=== PATIENT | male | born 1930 | race Caucasian/White ===

== ENCOUNTER 2016-04-15 20:21 | Inpatient (IN) | payer OTHER ==
[~2016-04-15] VITALS: Ht 182.9 cm; Wt 93.8 kg
[~2016-04-15 20:21] MED LIST: ALPH50CA2 PO; ASPI81TA28 PO; FEXO1TAB49 PO; FINA5TAB PO; FLUT0.15 NAE; MULT-190 PO; MULTCAP36 PO; NVLGI7030 SC; PRAV20TA PO; PROB1TAB16 PO; RESV1CAP PO; SULF800T23 PO; TURM1CAP2 PO; UBIQ1CAP8 PO
[2016-04-15] MEDS ORDERED: NVLGI7030 SC (21:10)
[2016-04-15 21:38] LABS: BASO % 0.1 %; BASO ABS # 0.01 K/uL (0-0.2); COMPLETE YES; HEMATOCRIT 41.9 % (42-52); IG% 0.4 %; LYMPH % 20.8 %; LYMPH ABS # 1.64 K/uL (1.2-3.4); MEAN CELL VOLUME 91.1 fL (80-100); MEAN CORPUSCULAR HEMOGLOBIN 32.6 pg (25-34); MEAN CORPUSCULAR HGB CONC 35.8 g/dl (32-36); MEAN PLATELET VOLUME 10.9 fL (7.4-10.4); MONO % 7.7 %; PLATELET COUNT 169 K/uL (130-400)
[2016-04-15] MEDS ORDERED: CEFTRIAXONE SOD INJ 1 GM ADDVIAL IV STA (21:42)
--- NOTE | 2016-04-15 21:49 | EMERGENCY ROOM VISIT NOTE ---
History Report prepared by Hemalatha: Colton Delgado Under the Supervision of: Dr. Pepe Maradiaga D.O. First contact with patient: 20:40 Chief Complaint: WOUND INFECTION Stated Complaint: RT FOOT/2ND TOE INFECTION,DIABETIC History of Present Illness The patient is an 85 year old male who presents to the Emergency Room with complaints of persistent infection in the second toe of his right foot that started last week. Per patient's family, the physical therapist had cut off a piece of skin from the second toe. The toe was starting to bleed and so four days ago the physical therapist looked at it again and noted that it was healing well. However, the next day the toe was red and swollen. Two days ago, the patient presented to his PCP who also said the toe was healing nicely. There the toe was wrapped with silver nitrate and bandaged. Yesterday, the toe was bleeding again and started to cause him discomfort. He notes that the redness from the toe started spreading into his foot today, but not up his leg. The patient has a history of these infections and has seen [facility] in the past. He denies fever, nausea, vomiting, or drainage. Source of History: patient Onset: last week Position: toe(s) (2nd right toe) Timing: other (persistent) Associated Symptoms: No fevers, No nausea, No vomiting Note: Other associated symptoms: bleeding, red, swollen right second toe, toe discomfort, redness into foot Denies: drainage Review of Systems See HPI for pertinent positives & negatives. A total of 10 systems reviewed and were otherwise negative. Past Medical & Surgical Medical Problems: (1) Acute cholecystitis (2) Cellulitis and abscess of foot (3) Coronary artery bypass grafting (4) Diabetes mellitus (5) Diabetic peripheral neuropathy associated with type 2 diabetes mellitus (6) Foot deformity (7) Gastroesophageal reflux disease (8) History of diabetic ulcer of foot (9) Loss of sensation (10) Pre-ulcerative corn or callous Family History Cancer Social History Smoking Status: Never Smoker Drug Use: none Marital Status: Housing Status: lives with family Occupation Status: retired Current/Historical Medications Scheduled Alpha-Lipoic Acid (Thioctic Ac (Alpha Lipoic Acid), 1 TAB PO DAILY Aspirin (Aspirin Ec), 81 MG PO DAILY Finasteride (Proscar), 5 MG PO DAILY Insulin Aspart Protamine & Asp (Novolog Mix 70/30), 45 UNITS SC QAM Insulin Aspart Protamine & Asp (Novolog Mix 70/30), 40 UNITS SC QPM Multiple Vitamins W/ Minerals (Preservision/Lutein), 1 CAP PO BID Pravastatin (Pravachol ), 20 MG PO DAILY Probiotic Product (Probiotic), 1 TAB PO DAILY Resveratrol (Resveratrol), 1 TAB PO DAILY Turmeric (Curcuma Longa) (Turmeric), 1 TAB PO DAILY Ubiquinol (Ubiquinol), 1 TAB PO QAM Scheduled PRN Fexofenadine Hcl (Maria Fernanda Allergy), 180 MG PO DAILY PRN for ALLERGY SYMPTOMS Fluticasone Propionate (Nasal) (Flonase Allergy Relief), 1 SPRAY FRANCIE DIRECTED PRN for Nasal Congestion Insulin Aspart 70/30 (Novolog Mix 70/30), 0 SC for PRN Allergies Coded Allergies: Doxycycline (Verified Adverse Reaction, Mild, GI SYMPTOMS, 04/15/16) Bacitracin (Unverified Adverse Reaction, Unknown, RASH, 04/15/16) Neomycin (Unverified Adverse Reaction, Unknown, RASH, 04/15/16) Polymyxin B (Unverified Adverse Reaction, Unknown, RASH, 04/15/16) Tamsulosin (Verified Adverse Reaction, Unknown, hypotension/syncope, ) Physical Exam Vital Signs Date Time Temp Pulse Resp B/P Pulse Ox O2 Delivery O2 Flow Rate FiO2 04/15/16 22:24 73 18 141/70 96 Room Air 04/15/16 20:24 36.5 84 18 153/82 97 Room Air Physical Exam GENERAL: Patient is awake alert in no acute distress patient is resting comfortably and showing no signs of anxiety EYES: The conjunctivae are clear. The pupils are round and reactive. EARS, NOSE, MOUTH AND THROAT: The nose is without any evidence of any deformity. Mucous membranes are moist tongue is midline NECK: The neck is nontender and supple. RESPIRATORY: Normal respiratory effort is noted there is no evidence of wheezing rhonchi or rales CARDIOVASCULAR: Regular rate and rhythm noted there no murmurs rubs or gallops normal S1 normal S2 GASTROINTESTINAL: The abdomen is soft. Bowel sounds are present in all quadrants. Abdomen is nontender MUSCULOSKELETAL/EXTREMITIES: There is no evidence of gross deformity full range of motion is noted in the hips and shoulders SKIN: There is no obvious evidence of any rash. There are no petechiae, pallor or cyanosis noted. Right second toe was erythematous, on the pad there is an area of swelling, there is no active bleeding or discharge noted. Small amount of erythema on dorsum of right foot. NEUROLOGIC: Patient is awake alert and oriented x3 strength is symmetric patellar reflexes are 2+ bilaterally Medical Decision & Procedures ER Provider Diagnostic Interpretation: X-ray results as stated below per interpretation by me and the radiologist. RIGHT FOOT MIN 3 VIEWS ROUTINE CLINICAL HISTORY: RIGHT FOOT PROBLEMS, 2ND TOE INFECTION Right COMPARISON STUDY: None. FINDINGS: Soft tissue swelling within the right second toe. There is a 4 mm lucency along the medial aspect of the distal second toe which may represent a skin ulceration. There appears a focal cortical plate and screws seen within the distal fibula. To be subtle loss of the normal cortex at the tip of the distal phalanx of the second toe. This suggests osteomyelitis. No fracture or dislocation within the right foot. Degenerative changes which are most pronounced at the first MTP joint. Vascular calcifications are noted. The Lisfranc joint is intact. IMPRESSION: Soft tissue swelling and a small skin ulceration at the distal right second toe. Deep to the skin ulceration there are subtle loss of the normal cortex at the tip of the distal phalanx of the second toe consistent with osteomyelitis. Electronically signed by: Hakan Turpin M.D. 04/15/2016 10:21 PM Dictated Date/Time: 04/15/2016 10:17 PM Laboratory Results 04/15/16 21:30 Red Blood Count 4.60, Mean Corpuscular Volume 91.1, Mean Corpuscular Hemoglobin 32.6, Mean Corpuscular Hemoglobin Concent 35.8, Mean Platelet Volume 10.9, Neutrophils (%) (Auto) 69.0, Lymphocytes (%) (Auto) 20.8, Monocytes (%) (Auto) 7.7, Eosinophils (%) (Auto) 2.0, Basophils (%) (Auto) 0.1, Neutrophils # (Auto) 5.45, Lymphocytes # (Auto) 1.64, Monocytes # (Auto) 0.61, Eosinophils # (Auto) 0.16, Basophils # (Auto) 0.01 04/15/16 21:30 Test 04/15/16 21:30 White Blood Count 7.90 K/uL (4.8-10.8) Red Blood Count 4.60 M/uL (4.7-6.1) Hemoglobin 15.0 g/dL (14.0-18.0) Hematocrit 41.9 % (42-52) Mean Corpuscular Volume 91.1 fL (80-100) Mean Corpuscular Hemoglobin 32.6 pg (25-34) Mean Corpuscular Hemoglobin Concent 35.8 g/dl (32-36) Platelet Count 169 K/uL (130-400) Mean Platelet Volume 10.9 fL (7.4-10.4) Neutrophils (%) (Auto) 69.0 % Lymphocytes (%) (Auto) 20.8 % Monocytes (%) (Auto) 7.7 % Eosinophils (%) (Auto) 2.0 % Basophils (%) (Auto) 0.1 % Neutrophils # (Auto) 5.45 K/uL (1.4-6.5) Lymphocytes # (Auto) 1.64 K/uL (1.2-3.4) Monocytes # (Auto) 0.61 K/uL (0.11-0.59) Eosinophils # (Auto) 0.16 K/uL (0-0.5) Basophils # (Auto) 0.01 K/uL (0-0.2) RDW Standard Deviation 42.1 fL (36.4-46.3) RDW Coefficient of Variation 12.6 % (11.5-14.5) Immature Granulocyte % (Auto) 0.4 % Immature Granulocyte # (Auto) 0.03 K/uL (0.00-0.02) Erythrocyte Sedimentation Rate 14 mm/hr (0-14) Anion Gap 12.0 mmol/L (3-11) Est Creatinine Clear Calc Drug Dose 65.0 ml/min Estimated GFR () 81.2 Estimated GFR (Non- 70.0 BUN/Creatinine Ratio 25.0 (10-20) Calcium Level 9.1 mg/dl (8.5-10.1) Total Bilirubin 0.6 mg/dl (0.2-1) Direct Bilirubin < 0.1 mg/dl (0-0.2) Aspartate Amino Transf (AST/SGOT) 20 U/L (15-37) Alanine Aminotransferase (ALT/SGPT) 22 U/L (12-78) Alkaline Phosphatase 99 U/L (45-117) C-Reactive Protein 0.71 mg/dl (0-0.29) Total Protein 7.1 gm/dl (6.4-8.2) Albumin 3.6 gm/dl (3.4-5.0) Laboratory results per my review. Medications Administered Medications (Trade) Dose Ordered Sig/Mildred Route Start Time Stop Time Status Last Admin Dose Admin Ceftriaxone Sodium (Rocephin Inj) 1 gm NOW STAT IV 04/15/16 21:42 04/15/16 21:43 DC 04/15/16 21:58 1 GM ED Course 2105: The patient was evaluated in room C2. A complete history and physical examination were performed. 2141: Ordered Rocephin Inj 1 gm IV. 2241: At this time, I discussed the patient's case with Dr. Gabe RONDON and he agreed to accept the patient for further evaluation. Medical Decision Prior records reviewed and summarized as above. Triage Nursing notes reviewed. Additional history obtained from the patient's significant other. The patient's history was concerning for swelling and redness of the skin. Differential diagnosis: Etiologies such as cellulitis, abscess, MRSA infection, DVT, necrotizing fasciitis, dermatitis, drug eruption, as well as others were entertained.. The patient is an 85-year-old diabetic male who presented to the emergency department for an evaluation of right foot swelling and redness. The patient has a history of infection in the foot in the past. He also had osteomyelitis in the past. The patient had a recent procedure done to his right foot. He had a small callus removed. The patient started noticing erythema to the foot. He also noticed swelling of the right second toe. The patient is not currently taking antibiotics. I discussed the patient's laboratory and radiographic studies with him. He was treated with IV antibiotics emergency department. The patient was not found have a significant elevation in his white blood cell count. His inflammatory markers were not significantly elevated. He was found to have signs of possible osteomyelitis on plain x-ray. Given the patient's past medical history I discussed his case with the on-call [facility] hospitalist group. They've agreed to evaluate the patient in the emergency department for further management and disposition. Consults Time Called: [id number] Consulting Physician: Dr. Gabe RONDON Returned Call: [phone] At this time, I discussed the patient's case with Dr. Bernal and he agreed to accept the patient for further evaluation. Impression Primary Impression: Cellulitis of right toe Scribe Attestation The scribe's documentation has been prepared under my direction and personally reviewed by me in its entirety. I confirm that the note above accurately reflects all work, treatment, procedures, and medical decision making performed by me. Departure Information Dispostion Being Evaluated By Hospitalist Referrals Cedrick Niño M.D. (PCP)
[2016-04-15 22:12] LABS: ALT/SGPT 22 U/L (12-78); BLOOD UREA NITROGEN 25 mg/dl (7-18); C-REACTIVE PROTEIN 0.71 mg/dl (0-0.29); CALCIUM 9.1 mg/dl (8.5-10.1); CARBON DIOXIDE 23 mmol/L (21-32); CHLORIDE 105 mmol/L (98-107); CREATININE 0.98 mg/dl (0.60-1.40); GLUCOSE 167 mg/dl (70-99); POTASSIUM 4.1 mmol/L (3.5-5.1); SODIUM 140 mmol/L (136-145)
[2016-04-15 22:15] LABS: ALKALINE PHOSPHATASE 99 U/L (45-117); AST/SGOT 20 U/L (15-37)
--- NOTE | 2016-04-15 22:22 | DIAGNOSTIC IMAGING REPORT ---
RIGHT FOOT MIN 3 VIEWS ROUTINE CLINICAL HISTORY: RIGHT FOOT PROBLEMS, 2ND TOE INFECTION Right COMPARISON STUDY: None. FINDINGS: Soft tissue swelling within the right second toe. There is a 4 mm lucency along the medial aspect of the distal second toe which may represent a skin ulceration. There appears a focal cortical plate and screws seen within the distal fibula. To be subtle loss of the normal cortex at the tip of the distal phalanx of the second toe. This suggests osteomyelitis. No fracture or dislocation within the right foot. Degenerative changes which are most pronounced at the first MTP joint. Vascular calcifications are noted. The Lisfranc joint is intact. IMPRESSION: Soft tissue swelling and a small skin ulceration at the distal right second toe. Deep to the skin ulceration there are subtle loss of the normal cortex at the tip of the distal phalanx of the second toe consistent with osteomyelitis. Electronically signed by: Hakan Turpin M.D. 04/15/2016 10:21 PM Dictated Date/Time: 04/15/2016 10:17 PM
--- NOTE | 2016-04-15 22:59 | History and Physical ---
History & Physical Date & Time of Service: Apr 15, 2016 at 22:46 Chief Complaint: Rt Foot/2ND Toe Infection,Diabetic Primary Care Physician: Cedrick Niño M.D. History of Present Illness Source: patient 85 y/o M Hx CAD, moderate , IDDM w/neuropathy and previous complicated LE ulcer - was being treated as outpt for a 2nd R toe ulcer however has worsened following recent minor debridement. Current presentation is concerning for underlying osteomyelitis. Pt had previously presented similarly and quickly worsened requiring several weeks of outpt IV antibiotics. He denies significant pain, denies fever/rigors. Most recent wound cultures revealed MRSA. Past Medical/Surgical History Medical Problems: (1) Coronary artery bypass grafting Status: Resolved (2) Diabetes mellitus Status: Chronic (3) Gastroesophageal reflux disease Status: Chronic 4) Complicated cellulitis and osteomyelitis - required several weeks outpt IV antibiotics 5) Moderate - recent diagnosis Family History Cancer Social History Smoking Status: Never Smoker Drug Use: none Marital Status: Housing status: lives with family Occupational Status: retired Immunizations History of Influenza Vaccine: Yes History of Tetanus Vaccine?: UTD History of Pneumococcal: Yes History of Hepatitis B Vaccine: No Multi-Drug Resistant Organisms History of MDRO: Yes Type of MDRO: MRSA Allergies Coded Allergies: Doxycycline (Verified Adverse Reaction, Mild, GI SYMPTOMS, 04/15/16) Bacitracin (Unverified Adverse Reaction, Unknown, RASH, 04/15/16) Neomycin (Unverified Adverse Reaction, Unknown, RASH, 04/15/16) Polymyxin B (Unverified Adverse Reaction, Unknown, RASH, 04/15/16) Tamsulosin (Verified Adverse Reaction, Unknown, hypotension/syncope, ) Home Medications Scheduled Alpha-Lipoic Acid (Thioctic Ac (Alpha Lipoic Acid), 1 TAB PO DAILY Aspirin (Aspirin Ec), 81 MG PO DAILY Finasteride (Proscar), 5 MG PO DAILY Insulin Aspart Protamine & Asp (Novolog Mix 70/30), 45 UNITS SC QAM Insulin Aspart Protamine & Asp (Novolog Mix 70/30), 40 UNITS SC QPM Multiple Vitamins W/ Minerals (Preservision/Lutein), 1 CAP PO BID Pravastatin (Pravachol ), 20 MG PO DAILY Probiotic Product (Probiotic), 1 TAB PO DAILY Resveratrol (Resveratrol), 1 TAB PO DAILY Turmeric (Curcuma Longa) (Turmeric), 1 TAB PO DAILY Ubiquinol (Ubiquinol), 1 TAB PO QAM Scheduled PRN Fexofenadine Hcl (Maria Fernanda Allergy), 180 MG PO DAILY PRN for ALLERGY SYMPTOMS Fluticasone Propionate (Nasal) (Flonase Allergy Relief), 1 SPRAY FRANCIE DIRECTED PRN for Nasal Congestion Insulin Aspart 70/30 (Novolog Mix 70/30), 0 SC for PRN Review of Systems Constitutional: No chills, No fever, No sweats, No weakness, No weight loss Eyes: No worsening of vision ENT: No hearing loss, No nasal symptoms, No unusual epistaxis Respiratory: No cough, No sputum, No wheezing Cardiovascular: No PND, No chest pain, No orthopnea Abdomen: No nausea, No pain, No vomiting Musculoskeletal: No joint pain, No muscle pain Genitourinary - Male: No dysuria, No hematuria, No urinary frequency Neurologic: No memory loss, No paralysis Psychiatric: No depression symptoms Endocrine: No fatigue Hematologic / Lymphatic: No abnormal bleeding/bruising Integumentary: + problem reported (Worsening ulcer/cellulitis RLE - ulcer at 2nd toe), No rash Allergic / Immunologic: No environmental allergies, No pet sensitivities, No seasonal allergies Physical Exam Vital Signs Date Time Temp Pulse Resp B/P Pulse Ox O2 Delivery O2 Flow Rate FiO2 04/15/16 22:24 73 18 141/70 96 Room Air 04/15/16 20:24 36.5 84 18 153/82 97 Room Air General Appearance: WD/WN, no apparent distress Head: normocephalic, atraumatic Eyes: normal inspection, PERRL, EOMI ENT: normal ENT inspection, pharynx normal Neck: supple, no JVD Respiratory/Chest: chest non-tender, lungs clear, normal breath sounds, no respiratory distress, no accessory muscle use Cardiovascular: regular rate, rhythm, no JVD Abdomen/GI: normal bowel sounds, non tender, soft Back: normal inspection, no CVA tenderness Extremities/Musculoskelatal: normal inspection, no calf tenderness, normal capillary refill, + inflammation, + pertinent finding (Ulcer and cellulitis 2nd R toe - not stageable - ) Neurologic/Psych: bundle clerk II-XII nml as tested, no motor/sensory deficits, alert, oriented x 3 Skin: normal color, warm/dry, no rash, + pertinent finding (Ulcer and cellulitis 2nd R toe - not stageable - ) Diagnostics Laboratory Results Results Past 24 Hours Test 04/15/16 21:30 Range/Units White Blood Count 7.90 4.8-10.8 K/uL Red Blood Count 4.60 4.7-6.1 M/uL Hemoglobin 15.0 14.0-18.0 g/dL Hematocrit 41.9 42-52 % Mean Corpuscular Volume 91.1 80-100 fL Mean Corpuscular Hemoglobin 32.6 25-34 pg Mean Corpuscular Hemoglobin Concent 35.8 32-36 g/dl Platelet Count 169 130-400 K/uL Mean Platelet Volume 10.9 7.4-10.4 fL Neutrophils (%) (Auto) 69.0 % Lymphocytes (%) (Auto) 20.8 % Monocytes (%) (Auto) 7.7 % Eosinophils (%) (Auto) 2.0 % Basophils (%) (Auto) 0.1 % Neutrophils # (Auto) 5.45 1.4-6.5 K/uL Lymphocytes # (Auto) 1.64 1.2-3.4 K/uL Monocytes # (Auto) 0.61 0.11-0.59 K/uL Eosinophils # (Auto) 0.16 0-0.5 K/uL Basophils # (Auto) 0.01 0-0.2 K/uL RDW Standard Deviation 42.1 36.4-46.3 fL RDW Coefficient of Variation 12.6 11.5-14.5 % Immature Granulocyte % (Auto) 0.4 % Immature Granulocyte # (Auto) 0.03 0.00-0.02 K/uL Erythrocyte Sedimentation Rate 14 0-14 mm/hr Sodium Level 140 136-145 mmol/L Potassium Level 4.1 3.5-5.1 mmol/L Chloride Level 105 98-107 mmol/L Carbon Dioxide Level 23 21-32 mmol/L Anion Gap 12.0 3-11 mmol/L Blood Urea Nitrogen 25 7-18 mg/dl Creatinine 0.98 0.60-1.40 mg/dl Est Creatinine Clear Calc Drug Dose 65.0 ml/min Estimated GFR () 81.2 Estimated GFR (Non- 70.0 BUN/Creatinine Ratio 25.0 10-20 Random Glucose 167 70-99 mg/dl Calcium Level 9.1 8.5-10.1 mg/dl Total Bilirubin 0.6 0.2-1 mg/dl Direct Bilirubin < 0.1 0-0.2 mg/dl Aspartate Amino Transf (AST/SGOT) 20 15-37 U/L Alanine Aminotransferase (ALT/SGPT) 22 12-78 U/L Alkaline Phosphatase 99 45-117 U/L C-Reactive Protein 0.71 0-0.29 mg/dl Total Protein 7.1 6.4-8.2 gm/dl Albumin 3.6 3.4-5.0 gm/dl Diagnostic Radiology XR foot: Soft tissue swelling and a small skin ulceration at the distal right second toe. Deep to the skin ulceration there are subtle loss of the normal cortex at the tip of the distal phalanx of the second toe consistent with osteomyelitis. Impression Assessment and Plan 85 y/o M Hx CAD, DM w/neuropathy and previous complicated LE ulcer - was being treated as outpt for a 2nd R toe ulcer however has worsened following recent minor debridement. Current presentation is concerning for underlying osteomyelitis. Pt had previously presented similarly and quickly worsened requiring several weeks of outpt IV antibiotics. 1) LE cellulitis - ulcer R 2nd toe - pt admitted for IV abx and surgical eval - may need prolonged tx if there is clinical proof of osteo and he continues to worsen. We will consult surgery. Cultures form a few months prior revealed MRSA - pt will be placed on Ceftriaxone and Vanc pending additional culture results. 2) DM -sliding scale in hospital 3) CAD - no evidence of CAD - cont 4) Moderate - f/u as outpt Total time for this consult including chart review , discussion with ER attending, review of labs, imaging, med rec - 35 min Heparin prophylaxis, full code Level of Care Med/Surg Resuscitation Status FULL RESUSCITATION VTE Prophylaxis Given or contraindicated: Unfractionated heparin SQ
[2016-04-15] MEDS ORDERED: MAGNESIUM HYDROXIDE SUSP 30 ML UDC PO PRN (23:00)
[2016-04-15] MEDS ORDERED: ONDANSETRON INJ 2 MG/ML 2 ML VIAL IV PRN (23:00)
[2016-04-15] MEDS ORDERED: POLYETHYLENE (MIRALAX) 17 GM PACK PO PRN (23:00)
[2016-04-15] MEDS ORDERED: ALUMINUM/MAGNESIUM/SIMETH (MAALOX MAX) 30 ML UDC PO PRN (23:00)
[2016-04-15] MEDS ORDERED: ACETAMINOPHEN 325 MG TAB PO PRN (23:00)
[2016-04-16 00:01] VITALS: BP 151/73; PULSE 71; TEMP 36.6; O2SAT 98
[2016-04-16] MEDS ORDERED: GLUCAGON FOR INJ 1 MG VIAL SQ PRN (01:15)
[2016-04-16] MEDS ORDERED: DEXTROSE 50% 50 ML SYR IV PRN (01:15)
[2016-04-16] MEDS ORDERED: GLUCOSE 40% GEL 15 GM TUBE PO PRN (01:15)
[2016-04-16] MEDS ORDERED: GLUCOSE 10 TABS/TUBE PO PRN (01:15)
[2016-04-16 04:31] VITALS: BP 151/73; PULSE 71; TEMP 36.6; BMI 28.0
[2016-04-16 06:04] LABS: PROTHROMBIN TIME (PATIENT) 10.7 SECONDS (9.0-12.0)
[2016-04-16 06:59] VITALS: BP 126/73; PULSE 65; TEMP 36.6; O2SAT 98
[2016-04-16] MEDS: HEPARIN SOD 5000 UNIT/0.5 ML CARP SQ SCH ×2 (08:00→15:57)
[2016-04-16] MEDS: LACTOBACILLUS ACIDOPHILUS (FLORANEX) TAB PO SCH (09:07)
[2016-04-16] MEDS: PRAVASTATIN SOD 20 MG TAB PO SCH (09:07)
[2016-04-16] MEDS: FINASTERIDE 5 MG TAB PO SCH (09:07)
[2016-04-16] MEDS: ASPIRIN 81 MG ECTAB PO SCH (09:07)
[2016-04-16] MEDS: INSULIN ASPART 100 UNITS/ML 3 ML PEN SC SCH ×4 (09:12→22:07)
--- NOTE | 2016-04-16 11:10 | Progress Note ---
Subjective Date of Service: Apr 16, 2016. Subjective Pt evaluation today including: conversation w/ patient, chart review, lab review Pt states he has a small amount of pain in his R 2nd toe, but improved from prior. States that pain was never really that substantial however. Pt denies fever, SOB, chest pain, abd pain, n/v/c/d, other LE pain or swelling. He denies any recent hx of redness to the rest of his foot. ROS as noted above, otherwise neg. Problem List Medical Problems: (1) Cellulitis of right toe Status: Acute (2) Dehydration Status: Acute (3) Nausea & vomiting Status: Acute (4) Near syncope Status: Acute (5) UTI (urinary tract infection) Status: Acute Objective Vital Signs Date Time Temp Pulse Resp B/P Pulse Ox O2 Delivery O2 Flow Rate FiO2 04/16/16 08:00 Room Air 04/16/16 06:59 36.6 65 18 126/73 98 Room Air 04/16/16 04:31 36.6 71 20 151/73 Room Air 04/16/16 00:01 36.6 71 20 151/73 98 Room Air 04/15/16 23:33 72 18 136/67 96 04/15/16 22:24 73 18 141/70 96 Room Air 04/15/16 20:24 36.5 84 18 153/82 97 Room Air Physical Exam General Appearance: WD/WN, no apparent distress Respiratory/Chest: normal breath sounds, no respiratory distress Cardiovascular: regular rate, rhythm, no edema Abdomen: non tender, soft Extremities: non-tender, no pedal edema Neurologic/Psychiatric: alert, oriented x 3 Skin: warm/dry, + pertinent finding (R 2nd toe is bandaged with the dressing clean and dry, no redness to the rest of R foot) Laboratory Results Last 24 Hours Test 04/15/16 21:30 04/16/16 05:13 04/16/16 07:37 White Blood Count 7.90 K/uL Red Blood Count 4.60 M/uL Hemoglobin 15.0 g/dL Hematocrit 41.9 % Mean Corpuscular Volume 91.1 fL Mean Corpuscular Hemoglobin 32.6 pg Mean Corpuscular Hemoglobin Concent 35.8 g/dl Platelet Count 169 K/uL Mean Platelet Volume 10.9 fL Neutrophils (%) (Auto) 69.0 % Lymphocytes (%) (Auto) 20.8 % Monocytes (%) (Auto) 7.7 % Eosinophils (%) (Auto) 2.0 % Basophils (%) (Auto) 0.1 % Neutrophils # (Auto) 5.45 K/uL Lymphocytes # (Auto) 1.64 K/uL Monocytes # (Auto) 0.61 K/uL Eosinophils # (Auto) 0.16 K/uL Basophils # (Auto) 0.01 K/uL RDW Standard Deviation 42.1 fL RDW Coefficient of Variation 12.6 % Immature Granulocyte % (Auto) 0.4 % Immature Granulocyte # (Auto) 0.03 K/uL Erythrocyte Sedimentation Rate 14 mm/hr Sodium Level 140 mmol/L Potassium Level 4.1 mmol/L Chloride Level 105 mmol/L Carbon Dioxide Level 23 mmol/L Anion Gap 12.0 mmol/L Blood Urea Nitrogen 25 mg/dl Creatinine 0.98 mg/dl Est Creatinine Clear Calc Drug Dose 65.0 ml/min Estimated GFR () 81.2 Estimated GFR (Non- 70.0 BUN/Creatinine Ratio 25.0 Random Glucose 167 mg/dl Calcium Level 9.1 mg/dl Total Bilirubin 0.6 mg/dl Direct Bilirubin < 0.1 mg/dl Aspartate Amino Transf (AST/SGOT) 20 U/L Alanine Aminotransferase (ALT/SGPT) 22 U/L Alkaline Phosphatase 99 U/L C-Reactive Protein 0.71 mg/dl Total Protein 7.1 gm/dl Albumin 3.6 gm/dl Prothrombin Time 10.7 SECONDS Prothromb Time International Ratio 1.0 Bedside Glucose 217 mg/dl Assessment and Plan 85 y/o M Hx CAD, DM w/neuropathy and previous complicated LE ulcer - was being treated as outpt for a 2nd R toe ulcer however has worsened following recent minor debridement. Current presentation is concerning for underlying osteomyelitis. Pt had previously presented similarly and quickly worsened requiring several weeks of outpt IV antibiotics. 1) LE cellulitis - ulcer R 2nd toe - pt admitted for IV abx and surgical eval - XR suggestive of osteo Cultures from a few months prior revealed MRSA - pt will be placed on Ceftriaxone and Vanc pending additional culture results. 2) DM -sliding scale in hospital 3) CAD - no evidence of CAD - cont 4) Moderate - f/u as outpt
[2016-04-16 14:55] VITALS: BP 137/72; PULSE 62; TEMP 36.2; O2SAT 96
[2016-04-16 16:00] VITALS: O2SAT 96
[2016-04-16] MEDS ORDERED: CEFTRIAXONE SOD INJ 1 GM in DEXTROSE 5% ADD-VANTAGE 50ML 50 ML IV SCH (22:00)
[2016-04-17 00:14] VITALS: BP 136/68; PULSE 87; TEMP 36.5; O2SAT 97
[2016-04-17 07:29] VITALS: BP 158/94; PULSE 74; TEMP 36.7; O2SAT 96
[2016-04-17] MEDS ORDERED: INSULIN GLARGINE SOLOSTAR 100 UNITS/ML 3 ML PEN SC SCH ×2 (08:00→20:00)
[2016-04-17] MEDS: ASPIRIN 81 MG ECTAB PO SCH (08:43)
[2016-04-17] MEDS: PRAVASTATIN SOD 20 MG TAB PO SCH (08:44)
[2016-04-17] MEDS: FINASTERIDE 5 MG TAB PO SCH (08:44)
[2016-04-17] MEDS: LACTOBACILLUS ACIDOPHILUS (FLORANEX) TAB PO SCH (08:44)
[2016-04-17] MEDS: FEXOFENADINE HCL 180 MG TAB PO PRN (08:45)
[2016-04-17] MEDS: INSULIN ASPART 100 UNITS/ML 3 ML PEN SC SCH ×4 (08:49→19:41)
[2016-04-17] MEDS: HEPARIN SOD 5000 UNIT/0.5 ML CARP SQ SCH ×4 (08:50→23:48)
[2016-04-17 09:45] LABS: ESTIMATED AVERAGE GLUCOSE 189 mg/dl; HA1C FLAG Normal (Normal)
[2016-04-17] MEDS ORDERED: VANCOMYCIN INJ 1,000 MG in SODIUM CHLORIDE 0.9% 250ML 250 ML IV SCH (09:45)
[2016-04-17] MEDS ORDERED: INSULIN GLARGINE SOLOSTAR 100 UNITS/ML 3 ML PEN SC ONE (09:45)
[2016-04-17] MEDS ORDERED: VANCOMYCIN CONSULT ACTIVE PRN (10:15)
[2016-04-17 10:53] LABS: CREATININE 1.2 mg/dl (0.60-1.40)
--- NOTE | 2016-04-17 11:03 | Progress Note ---
Subjective Subjective Date of Service: Apr 17, 2016. Pt evaluation today including: conversation w/ patient, physical exam, chart review, review of studies, review of inpatient medication list Problem List Medical Problems: (1) Cellulitis of right toe Status: Acute (2) Dehydration Status: Acute (3) Nausea & vomiting Status: Acute (4) Near syncope Status: Acute (5) UTI (urinary tract infection) Status: Acute Review of Systems Constitutional: No fever, No weight loss Respiratory: No cough, No shortness of breath Abdomen: No diarrhea, No pain Neurologic: No memory loss, No numbness/tingling Psychiatric: No depression symptoms Endo: No fatigue Physical Exam Vital Signs Vital Signs Past 24 Hours: Date Time Temp Pulse Resp B/P Pulse Ox O2 Delivery O2 Flow Rate FiO2 04/17/16 08:00 Room Air 04/17/16 07:29 36.7 74 20 158/94 96 BiPAP 04/17/16 00:14 36.5 87 18 136/68 97 Room Air 04/17/16 00:00 Room Air 04/16/16 20:00 Room Air 04/16/16 16:00 96 Room Air 04/16/16 14:55 36.2 62 16 137/72 96 Room Air Physical Exam: General Appearance: WD/WN, no apparent distress Eyes: bilateral eyes normal inspection ENT: hearing grossly normal, pharynx normal Neck: supple, no JVD Respiratory/Chest: chest non-tender, normal breath sounds Cardiovascular: regular rate, rhythm, no gallop Abdomen: normal bowel sounds, no organomegaly Extremities: normal range of motion, + pertinent finding (right 2th toe is wrapped in dressing) Neurologic/Psychiatric: alert, normal mood/affect Skin: normal color Medications Medications: Current Inpatient Medications Medications (Trade) Dose Ordered Sig/Mildred Route Start Time Stop Time Status Last Admin Dose Admin Heparin Sodium (Porcine) (Heparin Sq 5000 Unit/0.5ml) 5,000 unit Q8H SQ 04/16/16 08:00 05/16/16 07:59 04/17/16 08:50 5,000 UNIT Acetaminophen (Tylenol Tab) 650 mg Q4H PRN PO 04/15/16 23:00 05/15/16 22:59 Al Hydrox/Mg Hydrox/Simethicone (Maalox Max Susp) 15 ml Q4H PRN PO 04/15/16 23:00 05/15/16 22:59 Magnesium Hydroxide (Milk Of Magnesia Susp) 30 ml Q6H PRN PO 04/15/16 23:00 05/15/16 22:59 Polyethylene (Miralax Powder Packet) 17 gm DAILY PRN PO 04/15/16 23:00 05/15/16 22:59 Ondansetron HCl (Zofran Inj) 4 mg Q6H PRN IV 04/15/16 23:00 05/15/16 22:59 Aspirin (Ecotrin Tab) 81 mg DAILY PO 04/16/16 08:00 05/16/16 08:59 04/17/16 08:43 81 MG Fexofenadine HCl (Maria Fernanda Tab) 180 mg DAILY PRN PO 04/15/16 23:00 05/15/16 22:59 04/17/16 08:45 180 MG Finasteride (Proscar Tab) 5 mg DAILY PO 04/16/16 08:00 05/16/16 08:59 04/17/16 08:44 5 MG Pravastatin Sodium (Pravachol Tab) 20 mg DAILY PO 04/16/16 08:00 05/16/16 08:59 04/17/16 08:44 20 MG Lactobacillus Acidophilus (Floranex Tab) 4 tab DAILY PO 04/16/16 08:00 05/16/16 08:59 04/17/16 08:44 4 TAB Insulin Aspart (novoLOG ASPART) SLIDING SCALE G... ACHS SC 04/16/16 06:30 05/16/16 06:59 04/17/16 08:49 4 UNITS Glucose (Glucose 40% Gel) 15-30 GRAMS 15 GRAMS... UD PRN PO 04/16/16 01:15 05/16/16 01:14 Glucose (Glucose Chew Tab) 4-8 Tablets 4 Tabl... UD PRN PO 04/16/16 01:15 05/16/16 01:14 Dextrose (Dextrose 50% 50ML Syringe) 25-50ML OF 50% DW IV FOR... UD PRN IV 04/16/16 01:15 05/16/16 01:14 Glucagon 1 mg 1 mg UD PRN SQ 04/16/16 01:15 05/16/16 01:14 Vancomycin HCl/ Sodium Chloride (Vancomycin Inj/ Nss 250ml) 270 ml @ 125 mls/hr Q12 IV 04/17/16 09:45 05/17/16 09:44 UNV Insulin Glargine (Lantus Solostar Pen) 24 unit BID SC 04/17/16 20:00 05/17/16 19:59 Vancomycin HCl (Consult) 1 ea UD PRN N/A 04/17/16 10:15 05/17/16 10:14 Laboratory Data Labs: Last 24 Hours Test 04/16/16 11:44 04/17/16 08:21 04/17/16 08:27 Bedside Glucose 250 mg/dl Estimated Average Glucose 189 mg/dl Hemoglobin A1c 8.2 % Creatinine 1.20 mg/dl Est Creatinine Clear Calc Drug Dose 53.5 ml/min Estimated GFR () 63.5 Estimated GFR (Non- 54.8 Assessment and Plan 85 y/o M Hx CAD, DM w/neuropathy and previous complicated LE ulcer - was being treated as outpt for a 2nd R toe ulcer however has worsened following recent minor debridement. Current presentation is concerning for underlying osteomyelitis. Pt had previously presented similarly and quickly worsened requiring several weeks of outpt IV antibiotics. 1) LE cellulitis/osteomyelitis - ulcer R 2nd toe - pt admitted for IV abx and surgical eval - XR suggestive of osteo, check MRI toe, may need intermodal customer service IV abx Cultures from a few months prior revealed MRSA - continue on IV Vanco pending additional culture results. 2) DM2: start sq lantus 24 units BID, sliding scale, a1c 8.2 3) CAD - no evidence of CAD - cont 4) Moderate - f/u as outpt FULL code
--- NOTE | 2016-04-17 11:10 | Pharmacy Progress Note ---
Pharmacy Antibiotic Consult Date of Service: Apr 17, 2016. Pharmacy Dosing Scope Pharmacy is consulted to initiate Vancomycin IV dosing therapy, order appropriate labs and adjust drug dose/frequency. Subjective The patient is a 85 year old male admitted on Apr 15, 2016 at 23:03. 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 Was not on antibiotics immediately USED [facility]. * Wound healing complicated by uncontrolled DM. A1c today is 8.2% (EAG = 189 mg /dl). * Culture from R toe ulcer positive for S.aureus. Sensitivities to follow. Vancomycin: * Load with Vancomycin 2350mg IV x 1 (25mg/kg) * Half life estimated to be 12-14 hours. * Start maintenance dose of Vancomycin 1400mg (15mg/kg) IV [id number]. * Obtain trough level prior to the 3rd or 4th maintenance dose. * Goal trough 15-20 mcg/ml Pharmacy will continue to follow and will adjust dose/frequency as necessary. Thank you
[2016-04-17] MEDS ORDERED: VANCOMYCIN INJ 2,350 MG in SODIUM CHLORIDE 0.9% 500ML 500 ML IV ONE (11:15)
--- NOTE | 2016-04-17 13:19 | DIAGNOSTIC IMAGING REPORT ---
MRI RIGHT FOREFOOT COMBO CLINICAL HISTORY: Osteomyelitis. COMPARISON STUDY: MRI of the right forefoot dated 09/29/2009. Radiographs of the right foot dated 04/15/2016. TECHNIQUE: MRI of the right forefoot is performed using various T1 and T2-weighted sequences in the axial, sagittal, and coronal planes. Contrast-enhanced images were acquired from the IV administration of 9 cc of Gadavist. The Examination is degraded by motion artifact. FINDINGS: There is cortical erosion identified at the tip of the second distal phalanx with mild overlying soft tissue edema and patchy abnormal enhancement. No significant marrow edema is identified and the appearance of the second distal phalanx is unchanged from the 2010 examination. There is no convincing evidence of osteomyelitis. The overlying edema suggests cellulitis. No organized fluid collection is seen to indicate abscess. Arthritic change is present at the first metatarsophalangeal joint. There is fatty atrophy of the regional musculature. IMPRESSION: 1. Erosion at the tip of the second distal phalanx is unchanged from the 2010 MRI. There is no associated marrow edema and no definitive MRI evidence of acute osteomyelitis. 2. Findings suggest mild cellulitis involving the second toe. Clinical correlation will be required. Electronically signed by: Carlos Alba M.D. 04/17/2016 1:17 PM Dictated Date/Time: 04/17/2016 1:05 PM
[2016-04-17 14:17] VITALS: Ht 182.9 cm; Wt 93.8 kg
[2016-04-17 15:12] VITALS: BP 131/70; PULSE 57; TEMP 36.5; O2SAT 97
[2016-04-17] MEDS: INSULIN GLARGINE SOLOSTAR 100 UNITS/ML 3 ML PEN SC SCH (19:40)
[2016-04-18 00:23] VITALS: BP 136/81; PULSE 65; TEMP 36.5; O2SAT 95
[2016-04-18] MEDS ORDERED: VANCOMYCIN INJ 1,400 MG in SODIUM CHLORIDE 0.9% 500ML 500 ML IV SCH (01:00)
[2016-04-18 08:00] VITALS: O2SAT 95
[2016-04-18 08:01] VITALS: BP 145/75; PULSE 70; TEMP 36.9; O2SAT 99
[2016-04-18 08:28] LABS: CREATININE 0.99 mg/dl (0.60-1.40)
[2016-04-18] MEDS: PRAVASTATIN SOD 20 MG TAB PO SCH (08:52)
[2016-04-18] MEDS: FINASTERIDE 5 MG TAB PO SCH (08:52)
[2016-04-18] MEDS: ASPIRIN 81 MG ECTAB PO SCH (08:52)
[2016-04-18] MEDS: FEXOFENADINE HCL 180 MG TAB PO PRN (08:52)
[2016-04-18] MEDS: LACTOBACILLUS ACIDOPHILUS (FLORANEX) TAB PO SCH (08:52)
[2016-04-18] MEDS: INSULIN ASPART 100 UNITS/ML 3 ML PEN SC SCH ×2 (08:58→13:17)
[2016-04-18] MEDS: INSULIN GLARGINE SOLOSTAR 100 UNITS/ML 3 ML PEN SC SCH (08:59)
[2016-04-18] MEDS: HEPARIN SOD 5000 UNIT/0.5 ML CARP SQ SCH (08:59)
[2016-04-18] MEDS ORDERED: CEPH500C2 PO (09:08)
[2016-04-18] MEDS ORDERED: LACTCAP3 PO (09:08)
--- NOTE | 2016-04-18 09:09 | Discharge Instructions ---
Discharge Instructions Admission Reason for Admission: Cellulitis And Abscess Of Foot Discharge Discharge Diagnosis / Problem: left toe cellulitis Discharge Goals Goal(s): Increase independence, Improve disease control, Diagnostic testing, Therapeutic intervention Activity Recommendations Activity Limitations: resume your previous activity Lifting Limitations: none . Instructions / Follow-Up Instructions / Follow-Up follow up with wound care clinic 1 week finish antibiotics with probiotics Current Hospital Diet Patient's current hospital diet: AHA Diet (Heart Healthy), Diabetes Type 2 Diet Discharge Diet Recommended Diet: Diabetes Type 2 Diet Pending Studies Studies pending at discharge: no Laboratory Results Hemoglobin A1c Test 04/17/16 08:21 Range/Units Estimated Average Glucose 189 mg/dl Hemoglobin A1c 8.2 H 4.5-5.6 % Lipid Panel Test 03/13/16 09:49 Range/Units Triglycerides Level 224 H 0-150 mg/dl Cholesterol Level 199 0-200 mg/dl HDL Cholesterol 39 mg/dl Cholesterol/HDL Ratio 5.1 LDL Cholesterol, Calculated 115 mg/dl Medical Emergencies . Who to Call and When: Medical Emergencies: If at any time you feel your situation is an emergency, please call 911 immediately. . Non-Emergent Contact Non-Emergency issues call your: Primary Care Provider Call Non-Emergent contact if: you have a fever, your pain is not controlled . Past History Medical & Surgical History: (1) Cellulitis of right toe . "Provider Documentation" section prepared by Gabriel Calles. VTE Core Measure Inpt VTE Proph given/why not?: Unfractionated heparin SQ
--- NOTE | 2016-04-18 09:13 | Discharge Summary ---
Discharge Summary Admission Date: Apr 15, 2016 at 23:03 Discharge Date: Apr 18, 2016 Discharge Disposition: Home Principal Diagnosis: toe cellulitis Immunizations: Have You Had Influenza Vaccine: Yes History of Tetanus Vaccine?: UTD History of Pneumococcal: Yes History of Hepatitis B Vaccine: No Medication Reconciliation New Medications: Lactobacillus (Acidophilus) 1 Cap Cap 1 CAP PO TID, #30 CAP Sulfamethoxazole-Trimethoprim (Bactrim Ds 800MG/160MG) 1 Tab Tab 1 TAB PO BID, #16 TAB Continued Medications: Alpha-Lipoic Acid (Thioctic Ac (Alpha Lipoic Acid) Unknown Strength Cap 1 TAB PO DAILY Aspirin (Aspirin Ec) 81 Mg Tab 81 MG PO DAILY Fexofenadine Hcl (Maria Fernanda Allergy) 180 Mg Tab 180 MG PO DAILY PRN for ALLERGY SYMPTOMS, TAB 2 Refills Finasteride (Proscar) 5 Mg Tab 5 MG PO DAILY, TAB Fluticasone Propionate (Nasal) (Flonase Allergy Relief) 50 Mcg/Act Spr 1 SPRAY FRANCIE DIRECTED PRN for Nasal Congestion Insulin Aspart 70/30 (Novolog Mix 70/30) Susp 0 SC PRN for PRN, BTL Insulin Aspart Protamine & Asp (Novolog Mix 70/30) 1 Inj Inj 45 UNITS SC QAM, BTL Insulin Aspart Protamine & Asp (Novolog Mix 70/30) 1 Inj Inj 40 UNITS SC QPM, BTL Multiple Vitamins W/ Minerals (Preservision/Lutein) 1 Cap Cap 1 CAP PO BID Pravastatin (Pravachol ) 20 Mg Tab 20 MG PO DAILY, TAB Probiotic Product (Probiotic) 1 Tab Tab 1 TAB PO DAILY Resveratrol (Resveratrol) 50 Mg Cap 1 TAB PO DAILY Turmeric (Curcuma Longa) (Turmeric) Unknown Strength Cap 1 TAB PO DAILY Ubiquinol (Ubiquinol) Unknown Strength Cap 1 TAB PO QAM Referrals At Discharge Follow up Referrals: Physician Referral - Within 2 Weeks with Cedrick Niño M.D. Discharge Exam Review of Systems: Constitutional: No chills ENT: No unusual epistaxis Respiratory: No sputum Abdomen: No nausea Genitourinary - Male: No hematuria Psychiatric: No depression symptoms Integumentary: No rash Physical Exam: General Appearance: WD/WN, no apparent distress Eyes: normal inspection, EOMI ENT: hearing grossly normal, pharynx normal Neck: supple, no JVD Respiratory/Chest: chest non-tender, normal breath sounds Cardiovascular: no edema, no JVD Abdomen / GI: non tender, soft Extremities: no calf tenderness, normal capillary refill Neurologic/Psychiatric: normal mood/affect Skin: no rash Hospital Course 85 y/o M Hx CAD, DM w/neuropathy and previous complicated LE ulcer - was being treated as outpt for a 2nd R toe ulcer however has worsened following recent minor debridement. Current presentation is concerning for underlying osteomyelitis. Pt had previously presented similarly and quickly worsened requiring several weeks of outpt IV antibiotics. 1) LE cellulitis/osteomyelitis - ulcer R 2nd toe - pt admitted for IV abx and surgical eval - XR suggestive of osteo, but MRI toe did not show definite osteomyelitis, stop IV abx, start po bactrim to complete 10 days total 2) DM2: restart home regimen, a1c 8.2 3) CAD - no evidence of CAD - cont 4) Moderate - f/u as outpt FULL code f/u PCP 2 weeks and wound care in 1 week, endocrine Total Time Spent: Greater than 30 minutes This includes examination of the patient, discharge planning, medication reconciliation, and communication with other providers. Discharge Instructions Please refer to the electronic Patient Visit Report (Discharge Instructions) for additional information. Additional Copies To Cedrick Niño M.D.
[2016-04-18] MEDS ORDERED: SULF800T23 PO (09:16)
[2016-04-18] MEDS ORDERED: AMX500 PO (09:16)
--- NOTE | 2016-04-18 10:52 | Medical Consult ---
Consultation Date of Consultation: Apr 18, 2016. Attending Physician: Gabriel Calles MD History of Present Illness 85 y/o diabetic male admitted for right second toe infection/ulceration. This was debrided as an outpatient last week at diabetic clinic but became more red and swollen after that. Its improved over the past two days with IV abx. He had similar issue 4 years ago in that toe which required PICC line and abx. No vascular history or studies. MRI showed chronic changes in the distal phalanx similar to 2010 with no evidence of acute osteomyelitis. Past Medical/Surgical History Medical Problems: (1) Cellulitis of right toe Status: Acute (2) Dehydration Status: Acute (3) Nausea & vomiting Status: Acute (4) Near syncope Status: Acute (5) UTI (urinary tract infection) Status: Acute Family History Cancer Social History Smoking Status: Unknown if Ever Smoked Drug Use: none Marital Status: Housing Status: lives with family Occupation Status: retired Allergies Coded Allergies: Doxycycline (Verified Adverse Reaction, Mild, GI SYMPTOMS, 04/15/16) Bacitracin (Unverified Adverse Reaction, Unknown, RASH, 04/15/16) Neomycin (Unverified Adverse Reaction, Unknown, RASH, 04/15/16) Polymyxin B (Unverified Adverse Reaction, Unknown, RASH, 04/15/16) Tamsulosin (Verified Adverse Reaction, Unknown, hypotension/syncope, ) Current Inpatient Medications Current Inpatient Medications Medications (Trade) Dose Ordered Sig/Mildred Route Start Time Stop Time Status Last Admin Dose Admin Heparin Sodium (Porcine) (Heparin Sq 5000 Unit/0.5ml) 5,000 unit Q8H SQ 04/16/16 08:00 05/16/16 07:59 04/18/16 08:59 5,000 UNIT Acetaminophen (Tylenol Tab) 650 mg Q4H PRN PO 04/15/16 23:00 05/15/16 22:59 Al Hydrox/Mg Hydrox/Simethicone (Maalox Max Susp) 15 ml Q4H PRN PO 04/15/16 23:00 05/15/16 22:59 Magnesium Hydroxide (Milk Of Magnesia Susp) 30 ml Q6H PRN PO 04/15/16 23:00 05/15/16 22:59 Polyethylene (Miralax Powder Packet) 17 gm DAILY PRN PO 04/15/16 23:00 05/15/16 22:59 Ondansetron HCl (Zofran Inj) 4 mg Q6H PRN IV 04/15/16 23:00 05/15/16 22:59 Aspirin (Ecotrin Tab) 81 mg DAILY PO 04/16/16 08:00 05/16/16 08:59 04/18/16 08:52 81 MG Fexofenadine HCl (Maria Fernanda Tab) 180 mg DAILY PRN PO 04/15/16 23:00 05/15/16 22:59 04/18/16 08:52 180 MG Finasteride (Proscar Tab) 5 mg DAILY PO 04/16/16 08:00 05/16/16 08:59 04/18/16 08:52 5 MG Pravastatin Sodium (Pravachol Tab) 20 mg DAILY PO 04/16/16 08:00 05/16/16 08:59 04/18/16 08:52 20 MG Lactobacillus Acidophilus (Floranex Tab) 4 tab DAILY PO 04/16/16 08:00 05/16/16 08:59 04/18/16 08:52 4 TAB Insulin Aspart (novoLOG ASPART) SLIDING SCALE G... ACHS SC 04/16/16 06:30 05/16/16 06:59 04/18/16 08:58 3 UNITS Glucose (Glucose 40% Gel) 15-30 GRAMS 15 GRAMS... UD PRN PO 04/16/16 01:15 05/16/16 01:14 Glucose (Glucose Chew Tab) 4-8 Tablets 4 Tabl... UD PRN PO 04/16/16 01:15 05/16/16 01:14 Dextrose (Dextrose 50% 50ML Syringe) 25-50ML OF 50% DW IV FOR... UD PRN IV 04/16/16 01:15 05/16/16 01:14 Glucagon (Glucagon Inj) 1 mg UD PRN SQ 04/16/16 01:15 05/16/16 01:14 Insulin Glargine (Lantus Solostar Pen) 24 unit BID SC 04/17/16 20:00 05/17/16 19:59 04/18/16 08:59 24 UNIT Vancomycin HCl 1 ea 1 ea UD PRN N/A 04/17/16 10:15 05/17/16 10:14 Vancomycin HCl/ Sodium Chloride (Vancomycin Inj/ Nss 500ml) 528 ml @ 200 mls/hr Q14H IV 04/18/16 01:00 05/18/16 00:59 04/18/16 01:03 200 MLS/HR Physical Exam Date Time Temp Pulse Resp B/P Pulse Ox O2 Delivery O2 Flow Rate FiO2 04/18/16 08:01 36.9 70 20 145/75 99 Room Air 04/18/16 01:11 Room Air 04/18/16 00:23 36.5 65 16 136/81 95 Room Air 04/17/16 20:00 Room Air 04/17/16 15:12 36.5 57 18 131/70 97 Room Air Extremities/Musculoskelatal: + pertinent finding (right second toe with ulceration at the toe tip, mild erthema, nonpalpable DP/trace PT pulses) Laboratory Results Last 24 Hours Test 04/18/16 07:36 Creatinine 0.99 mg/dl Est Creatinine Clear Calc Drug Dose 64.9 ml/min Estimated GFR () 80.2 Estimated GFR (Non- 69.2 Assessment & Plan cellulitis right second toe improving being discharged today on Bactrim follow-up in clinic if not improving, would consider vascular imaging
[2016-04-18 13:30] VITALS: BP 145/75; PULSE 70; TEMP 36.9; O2SAT 99
[2016-04-19] MEDS ORDERED: VANCOMYCIN TROUGH ONE (04:30)
[2016-04-24] MEDS ORDERED: SULF800T23 PO (13:59)
[2016-08-14] MEDS ORDERED: MULTCAP36 PO (15:32)
[2016-08-29] MEDS ORDERED: DAPT500I IV (13:24)
[2016-10-04] MEDS ORDERED: SULF800T23 PO (11:30)
[2016-10-26] MEDS ORDERED: SULF-183 PO (13:57)
[2016-10-26] MEDS ORDERED: SULF800T23 PO (13:57)
[2016-11-06] MEDS ORDERED: UBIQUINOL PO (12:17)
[2016-11-08] MEDS ORDERED: HYDR-5688 PO (08:21)
[2016-11-08] MEDS ORDERED: TRAM-10 PO (08:21)
[2016-11-08] MEDS ORDERED: SULF800T23 PO (08:25)
== END 2016-04-18 14:31 | disposition home or self-care (01) | DRG 638 ==
LOC: ENRESERVDT → ENRESERVTM → C.EDB 20:22 → C.MS4W 23:03
PROVIDERS: ADMIT Internal Medicine; ATTEND Hospitalist
DX: E11.621 Type 2 diabetes mellitus with foot ulcer (principal); L97.419 Non-pressure chronic ulcer of right heel and midfoot with unspecified severity; L03.032 Cellulitis of left toe; L97.519 Non-pressure chronic ulcer of other part of right foot with unspecified severity; B95.62 Methicillin resistant Staphylococcus aureus infection as the cause of diseases classified elsewhere; I25.10 Atherosclerotic heart disease of native coronary artery without angina pectoris; I35.0 Nonrheumatic aortic (valve) stenosis; Z95.1 Presence of aortocoronary bypass graft; Z79.4 Long term (current) use of insulin; Z79.82 Long term (current) use of aspirin; Z79.899 Other long term (current) drug therapy; L84 Corns and callosities; E11.42 Type 2 diabetes mellitus with diabetic polyneuropathy; M20.11 Hallux valgus (acquired), right foot; M20.12 Hallux valgus (acquired), left foot; M20.5X1 Other deformities of toe(s) (acquired), right foot; M20.5X2 Other deformities of toe(s) (acquired), left foot

== ENCOUNTER → 2016-08-02 | Outpatient (CLI) | payer OTHER ==
[~2016-08-02] MED LIST changes: +DAPT500I IV; +HYDR-5688 PO; +LACTCAP3 PO; -MULT-190 PO; +SULF-183 PO; +TRAM-10 PO; +UBIQUINOL PO
--- NOTE | 2016-08-02 13:51 | DIAGNOSTIC IMAGING REPORT ---
RIGHT FOOT MIN 3 VIEWS ROUTINE CLINICAL HISTORY: Diabetes with neuropathy. Swollen right second toe. COMPARISON: Right foot radiograph April 15, 2016 and MRI of the right foot April 17, 2016. FINDINGS: Tarsometatarsal joints are intact. There is extensive vascular calcification. 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 Soft tissue swelling of the right second toe is noted. There is erosion of the distal tuft of the distal phalanx of the right second toe. On AP and oblique images, this appears to progressed since exam of April 25, 2016. There is no acute fracture within the right foot. There is mild to moderate mid foot arthritis. IMPRESSION: 1. Soft tissue swelling of the right second toe with suspected erosion of the distal tuft of the distal phalanx. This raises the possibility of osteomyelitis. 2. No acute fracture. 3. Extensive vascular calcification 4. 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 Electronically signed by: Dionicio Ashley M.D. 08/02/2016 1:49 PM Dictated Date/Time: 08/02/2016 1:43 PM
== END | disposition home or self-care (01) ==
LOC: C.RADBC 13:22
PROVIDERS: ATTEND Internal Medicine Endocrinology, Diabetes & Metabolism
DX: E11.40 Type 2 diabetes mellitus with diabetic neuropathy, unspecified (principal); M79.89 Other specified soft tissue disorders; M19.071 Primary osteoarthritis, right ankle and foot

== ENCOUNTER → 2016-08-07 | Outpatient (CLI) | payer OTHER ==
[2016-08-07 10:53] LABS: ESTIMATED AVERAGE GLUCOSE 154 mg/dl; HA1C FLAG Normal (Normal)
[2016-08-07 13:35] LABS: BASO % 0.5 %; BASO ABS # 0.03 K/uL (0-0.2); COMPLETE YES; EOS % 4.1 %; HEMATOCRIT 43.2 % (42-52); IG% 0.8 %; LYMPH % 24.4 %; LYMPH ABS # 1.48 K/uL (1.2-3.4); MEAN CELL VOLUME 96.6 fL (80-100); MEAN CORPUSCULAR HEMOGLOBIN 33.1 pg (25-34); MEAN CORPUSCULAR HGB CONC 34.3 g/dl (32-36); MEAN PLATELET VOLUME 10.7 fL (7.4-10.4); MONO % 8.7 %; NEUT % 61.5 %; PLATELET COUNT 173 K/uL (130-400); RED BLOOD COUNT 4.47 M/uL (4.7-6.1); WHITE BLOOD COUNT 6.06 K/uL (4.8-10.8)
[2016-08-07 13:54] LABS: ALT/SGPT 26 U/L (12-78); AST/SGOT 20 U/L (15-37); BLOOD UREA NITROGEN 25 mg/dl (7-18); BUN/CREATININE RATIO 18.1 (10-20); CALCIUM 8.8 mg/dl (8.5-10.1); CARBON DIOXIDE 25 mmol/L (21-32); CHLORIDE 104 mmol/L (98-107); GLUCOSE 168 mg/dl (70-99); POTASSIUM 4.5 mmol/L (3.5-5.1); SODIUM 138 mmol/L (136-145)
[2016-08-07 14:04] LABS: ALB/GLOB RATIO 1.2 (0.9-2); ALKALINE PHOSPHATASE 81 U/L (45-117); CHOLESTEROL 175 mg/dl (0-200); CHOLESTEROL/HDL RATIO 4.6; HDL CHOLESTEROL 38 mg/dl; LDL CHOLESTEROL CALCULATED 99 mg/dl; TRIGLYCERIDES 189 mg/dl (0-150); VERY LOW DENSITY LIPOPROT CALC 38 mg/dl
== END | disposition home or self-care (01) ==
LOC: C.LABBC 09:07
PROVIDERS: ATTEND Internal Medicine
DX: L03.90 Cellulitis, unspecified (principal); E11.621 Type 2 diabetes mellitus with foot ulcer; I25.10 Atherosclerotic heart disease of native coronary artery without angina pectoris; N20.0 Calculus of kidney

== ENCOUNTER → 2016-08-07 | Outpatient (CLI) | payer OTHER ==
[~2016-08-07] MED LIST changes: +GADAVIST IV PRN
--- NOTE | 2016-08-07 15:55 | DIAGNOSTIC IMAGING REPORT ---
MRI THE RIGHT FOREFOOT WITHOUT AND WITH CONTRAST CLINICAL HISTORY: Diabetes, cellulitis, swollen right second toe. Abnormal conventional radiographic study, prostate carcinoma COMPARISON STUDY: Conventional radiographic study dated 08/02/2016 MRI dated 04/17/2016 FINDINGS: Imaging was performed in the sagittal, coronal, and axial planes. Imaging was performed before and after the administration of 9 cc of intravenous Gadavist. There is T1 and T2 marrow edema involving the tuft of the distal phalanx of the second toe. Given the history of soft tissue swelling and cellulitis, the findings are suspicious for osteomyelitis. There are no fluid collections to indicate an abscess. IMPRESSION: 1. T1 and T2 marrow edema involving the distal phalanx of the second toe. Given the clinical history, the findings are suspicious for osteomyelitis. Electronically signed by: Ray Garza M.D. 08/07/2016 3:55 PM Dictated Date/Time: 08/07/2016 3:46 PM
== END | disposition home or self-care (01) ==
LOC: C.MRIBC 09:01
PROVIDERS: ATTEND Internal Medicine
DX: E11.621 Type 2 diabetes mellitus with foot ulcer (principal); L03.90 Cellulitis, unspecified; L97.509 Non-pressure chronic ulcer of other part of unspecified foot with unspecified severity; R93.8 Abnormal findings on diagnostic imaging of other specified body structures

== ENCOUNTER → 2016-08-07 | Outpatient (CLI) | payer OTHER ==
[~2016-08-07] MED LIST changes: -GADAVIST IV PRN
--- NOTE | 2016-08-07 15:54 | DIAGNOSTIC IMAGING REPORT ---
KUB CLINICAL HISTORY: CALCULUS OF KIDNEY nephrocalcinosis COMPARISON STUDY: 03/17/2015 FINDINGS: Nonobstructive bowel pattern. Punctate nonobstructing calcification lower aspect left kidney unchanged. Right kidney is secured due to overlying bowel content. IMPRESSION: 1. A punctate nonobstructing calculus lower aspect left kidney unchanged. 2. Nonobstructive bowel pattern. 3. Non visibility of the right kidney due to overlying bowel content. Electronically signed by: Garry Moody M.D. 08/07/2016 3:53 PM Dictated Date/Time: 08/07/2016 3:51 PM
== END | disposition home or self-care (01) ==
LOC: C.RADBC 14:34
PROVIDERS: ATTEND Nurse Practitioner Family
DX: N20.0 Calculus of kidney (principal)

== ENCOUNTER → 2016-10-30 | Outpatient (CLI) | payer OTHER ==
[~2016-10-30] MED LIST changes: -ALPH50CA2 PO; -DAPT500I IV; -LACTCAP3 PO
== END | disposition home or self-care (01) ==
LOC: C.RDSM 14:01
PROVIDERS: ATTEND Physical Medicine & Rehabilitation Sports Medicine
DX: E11.621 Type 2 diabetes mellitus with foot ulcer (principal)

== ENCOUNTER → 2016-11-08 | Day surgery (SDC) | payer OTHER ==
[2016-11-06 12:21] VITALS: BMI 28.0
--- NOTE | 2016-11-06 13:06 | PAT Medication Instructions ---
Service Date Nov 06, 2016. Current Home Medication List Aspirin (Aspirin Ec), 81 MG PO QPM Fexofenadine Hcl (Maria Fernanda Allergy), 180 MG PO DAILY PRN for ALLERGY SYMPTOMS Finasteride (Proscar), 5 MG PO QPM Fluticasone Propionate (Nasal) (Flonase Allergy Relief), 1 SPRAY FRANCIE DIRECTED PRN for Nasal Congestion Insulin Aspart Protamine & Asp (Novolog Mix 70/30), 45 UNITS SC QAM Insulin Aspart Protamine & Asp (Novolog Mix 70/30), 40 UNITS SC QPM Multiple Vitamins W/ Minerals (Preservision/Lutein), 1 CAP PO BID Pravastatin (Pravachol ), 20 MG PO QPM Probiotic Product (Probiotic), 1 TAB PO QAM Resveratrol (Resveratrol), 1 TAB PO QPM Turmeric (Curcuma Longa) (Turmeric), 1 TAB PO QPM [Ubiquinol], 1 TAB PO QAM Medication Instructions For Your Scheduled Surgery - Hold the following medications 11/06/16: Resveratrol (Resveratrol), 1 TAB PO QPM Turmeric (Curcuma Longa) (Turmeric), 1 TAB PO QPM [Ubiquinol], 1 TAB PO QAM - Hold the following medications the morning of surgery: Multiple Vitamins W/ Minerals (Preservision/Lutein), 1 CAP PO BID Probiotic Product (Probiotic), 1 TAB PO QAM Fexofenadine Hcl (Maria Fernanda Allergy), 180 MG PO DAILY PRN for ALLERGY SYMPTOMS - Take the following medications the morning of surgery: Fluticasone Propionate (Nasal) (Flonase Allergy Relief), 1 SPRAY FRANCIE DIRECTED PRN for Nasal Congestion - For Insulin Dependent Diabetic patients: Test blood sugar A.M. of surgery. - If Blood Sugar is GREATER THAN 150, take HALF of your regular dose of: Insulin Aspart Protamine & Asp (Novolog Mix 70/30) - If Blood Sugar is LESS THAN 150, do not take any: Insulin Aspart Protamine & Asp (Novolog Mix 70/30) - Take the following medications as scheduled the night before surgery: Insulin Aspart Protamine & Asp (Novolog Mix 70/30), 40 UNITS SC QPM Finasteride (Proscar), 5 MG PO QPM Multiple Vitamins W/ Minerals (Preservision/Lutein), 1 CAP PO BID Aspirin (Aspirin Ec), 81 MG PO QPM Pravastatin (Pravachol ), 20 MG PO QPM If you have any questions please call us at [phone] or [phone] or [phone]
[2016-11-07 06:24] LABS: ESTIMATED AVERAGE GLUCOSE 169 mg/dl; HA1C FLAG Normal (Normal)
--- NOTE | 2016-11-07 09:40 | History and Physical ---
History & Physical Date & Time of Service: Nov 07, 2016 at 09:16 Chief Complaint: Right Second Toe Diabetic Foot Ulcer Primary Care Physician: Cedrick Niño M.D. History of Present Illness Source: family () Patient is an 86 year old male who has been seen and evaluated by Dr. Sanches at the request of Dr. Morfin for a right foot 2nd toe ulcer that he's been dealing with for approximately 7 years. He states that approximately 1 year ago he developed an infection in his right 2nd toe. He has been treated in the [facility]. He has had x-rays and an MRI of his right foot. It seemed to heal up and improve in June of this year, so he was taken off antibiotics. During that time the infection reoccurred. He was then seen by Dr. Vázquez with infectious disease and a PICC line was placed and was treated with IV antibiotics for approximately 6 weeks. He is currently on Bactrim. He denies pain of the toe, but his states that there has been some drainage and she has had to keep dressings on it for the last 6 months. He was also seen by vascular surgery and revascularization was recommended with possibly a stent, but the patient declined to have this done. 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 He has multiple medical problems including diabetes, neuropathy, and aortic stenosis. His MRI showed changes consistent with osteomyelitis of the distal phalanx of the right 2nd toe. Due to these findings and the fact that this continues to return it was recommended for ampuation of the 2nd toe of his right foot. He agreed to proceed with surgery. He is scheduled for right foot 2nd toe partial amputation on 11/08/16 at the [facility] with regional anesthesia. 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 Diabetic neuropathy 5. Right foot 2nd toe ulcer 6. Aortic stenosis 7. Sleep apnea with CPAP 8. Hiatal hernia Family History Cancer Social History Smoking Status: Never Smoker Smokeless Tobacco Use: No Alcohol Use: none Drug Use: none Marital Status: Housing status: lives with family Occupational Status: retired Immunizations History of Influenza Vaccine: Yes History of Tetanus Vaccine?: UTD History of Pneumococcal: Yes History of Hepatitis B Vaccine: No Multi-Drug Resistant Organisms History of MDRO: Yes Type of MDRO: MRSA Allergies Coded Allergies: Bacitracin (Verified Allergy, Intermediate, RASH, 11/06/16) Neomycin (Verified Allergy, Intermediate, RASH, 11/06/16) Polymyxin B (Verified Allergy, Intermediate, RASH, 11/06/16) Unclassified Drugs (Unverified Allergy, Unknown, TEGADERM-RASH BLISTERS, ) Doxycycline (Verified Adverse Reaction, Mild, GI SYMPTOMS, 11/06/16) Tamsulosin (Verified Adverse Reaction, Unknown, hypotension/syncope, ) Home Medications Scheduled Aspirin (Aspirin Ec), 81 MG PO QPM Finasteride (Proscar), 5 MG PO QPM Insulin Aspart Protamine & Asp (Novolog Mix 70/30), 45 UNITS SC QAM Insulin Aspart Protamine & Asp (Novolog Mix 70/30), 40 UNITS SC QPM Multiple Vitamins W/ Minerals (Preservision/Lutein), 1 CAP PO BID Pravastatin (Pravachol ), 20 MG PO QPM Probiotic Product (Probiotic), 1 TAB PO QAM Resveratrol (Resveratrol), 1 TAB PO QPM Turmeric (Curcuma Longa) (Turmeric), 1 TAB PO QPM [Ubiquinol], 1 TAB PO QAM Scheduled PRN Fexofenadine Hcl (Maria Fernanda Allergy), 180 MG PO DAILY PRN for ALLERGY SYMPTOMS Fluticasone Propionate (Nasal) (Flonase Allergy Relief), 1 SPRAY FRANCIE DIRECTED PRN for Nasal Congestion Review of Systems Constitutional: No fever, No chills, No sweats, No weight loss, No weakness Eyes: No worsening of vision ENT: No hearing loss Respiratory: No cough, No sputum, No wheezing, No shortness of breath, No dyspnea on exertion, No dyspnea at rest Cardiovascular: No chest pain, No orthopnea, No edema, No palpitations Abdomen: No pain, No nausea, No vomiting, No diarrhea, No constipation Musculoskeletal: No joint pain, No muscle pain, No swelling, No calf pain Genitourinary - Male: No hematuria, No dysuria, No urinary retention, No urinary incontinence Neurologic: + balance problems ( states he has very poor balance, leading to multiple falls, but he refuses to use a walker to assist with ambulation), No memory loss, No numbness/tingling Psychiatric: No anxiety Endocrine: No fatigue Hematologic / Lymphatic: No abnormal bleeding/bruising, No clotting problems Integumentary: No rash, No itch, No new/changing skin lesions, No bleeding Physical Exam General Appearance: WD/WN, no apparent distress Head: normocephalic, atraumatic Eyes: EOMI ENT: normal ENT inspection, hearing grossly normal Neck: supple, no adenopathy, trachea midline Respiratory/Chest: chest non-tender, lungs clear, normal breath sounds, no respiratory distress, no accessory muscle use Cardiovascular: regular rate, rhythm, no edema, no murmur, + abnormal peripheral pulses (trace dorsalis pedis pulse, absent posterior tibial pulse) Abdomen/GI: normal bowel sounds, non tender, soft Extremities/Musculoskelatal: no calf tenderness, pelvis stable, + pertinent finding (silfverskiold tests is negative, no foot deformity. Strength 5/5. bulbous enlargement with large callus over the end of the 2nd toe. slight mallet type deformity present. mild swelling and erythematous toward the tip, no active drainage. Lesion size is about 1 cm in diameter. Intact but diminished sensation. ) Neurologic/Psych: no motor/sensory deficits, alert, normal mood/affect, oriented x 3 Skin: normal color, warm/dry, no rash Lymphatic: no adenopathy Diagnostics Laboratory Results Results Past 24 Hours Test 11/06/16 13:15 Range/Units Estimated Average Glucose 169 mg/dl Hemoglobin A1c 7.5 4.5-5.6 % Diagnostic Radiology RIGHT FOOT MIN 3 VIEWS ROUTINE CLINICAL HISTORY: Diabetes with neuropathy. Swollen right second toe. COMPARISON: Right foot radiograph April 15, 2016 and MRI of the right foot April 17, 2016. FINDINGS: Tarsometatarsal joints are intact. There is extensive vascular calcification. 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 Soft tissue swelling of the right second toe is noted. There is erosion of the distal tuft of the distal phalanx of the right second toe. On AP and oblique images, this appears to progressed since exam of April 25, 2016. There is no acute fracture within the right foot. There is mild to moderate mid foot arthritis. IMPRESSION: 1. Soft tissue swelling of the right second toe with suspected erosion of the distal tuft of the distal phalanx. This raises the possibility of osteomyelitis. 2. No acute fracture. 3. Extensive vascular calcification 4. 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 MRI THE RIGHT FOREFOOT WITHOUT AND WITH CONTRAST CLINICAL HISTORY: Diabetes, cellulitis, swollen right second toe. Abnormal conventional radiographic study, prostate carcinoma COMPARISON STUDY: Conventional radiographic study dated 08/02/2016 MRI dated 04/17/2016 FINDINGS: Imaging was performed in the sagittal, coronal, and axial planes. Imaging was performed before and after the administration of 9 cc of intravenous Gadavist. There is T1 and T2 marrow edema involving the tuft of the distal phalanx of the second toe. Given the history of soft tissue swelling and cellulitis, the findings are suspicious for osteomyelitis. There are no fluid collections to indicate an abscess. IMPRESSION: 1. T1 and T2 marrow edema involving the distal phalanx of the second toe. Given the clinical history, the findings are suspicious for osteomyelitis. CHEST ONE VIEW PORTABLE HISTORY: picc line moved COMPARISON: Chest 08/03/2015. FINDINGS: The right PICC terminates in the expected location of the brachiocephalic/SVC junction. The heart is normal in size. Poststernotomy changes. No pleural effusions. No pneumothorax. No focal lung consolidations to suggest pneumonia. IMPRESSION: The right PICC terminates in the expected location of the brachiocephalic/SVC junction. Impression Assessment and Plan Assessment: 1. Impaired circulation 2. Diabetes with neuropathy 3. Right 2nd toe diabetic foot ulcer with possible underlying osteomyelitis Plan: Patient is scheduled for a right foot 2nd toe partial amputation with Dr. Sanches on 11/08/16 at the [facility]. Risks and complications of the procedure were discussed with the patient and include but are not limited to infection, pain, scarring, nerve and blood vessel damage, wound problems, weakness, incomplete relief of symptoms, blood clots, embolism, heart attack, stroke and . Patient understands and agrees to proceed. Informed consent obtained by Dr. Sanches. Consent signed. He will have pre- admission testing prior to surgery. No labwork or EKG are necessary prior to surgery as he had this completed recently. No medical clearance is necessary unless requested by anesthesia. We will do this with regional anesthesia. He was informed of using the CHG cloths prior to surgery. He will be NPO p MN the night before surgery. This will be done as an outpatient. Post operative recovery discussed, he will bring his shoe and walker to surgery with him. All questions answered today, he was instructed to call with any further questions or concerns.
[~2016-11-08] VITALS: Ht 180.3 cm; Wt 93.3 kg
[~2016-11-08] MED LIST changes: +ATROPINE SULFATE 0.1 MG/ML 5ML SYR IV PRN; +BACITRACIN 50000 UNIT VIAL ONE; +BUPIVACAINE 0.5 % 5 MG/1 ML MPF 30ML VIAL ONE; +BUPIVACAINE/EPINEPHRINE 0.25% 10 ML VIAL ONE; +DEXAMETHASONE SOD INJ 4 MG/ML VIAL ONE; +EpHEDrine SULFATE INJ 50 MG/ML AMP IV PRN; +FENTANYL CITRATE INJ 50 MCG/1 ML 2 ML VIAL IV PRN; +FENTANYL CITRATE INJ 50 MCG/1 ML 2 ML VIAL ONE; +HYDROCODONE/ACETAMOPHEN 5/325MG TAB PO PRN; +KETAMINE HCL INJ 50 MG/ML 10 ML VIAL ONE; +LACTATED RINGER'S 1000ML 1,000 ML IV SCH; +LIDOCAINE HCL 1% 20 ML VIAL ONE; +LIDOCAINE HCL 2% 2 ML VIAL (20MG/ML) ONE; +MIDAZOLAM HCL 1 MG/ML 2ML VIAL ONE; +MoRPHine SULFATE 2 MG/ML CARP IV PRN; +MoRPHine SULFATE 4 MG/ML 1 ML CARP\\VIAL IV PRN; +ONDANSETRON INJ 2 MG/ML 2 ML VIAL IV PRN; +POVIDONE-IODINE OP SOLN 30 ML BTL ONE; +PROMETHAZINE HCL INJ 6.25 MG in SODIUM CHLORIDE 0.9% 50ML 50 ML IV PRN; +PROPOFOL IV EMULSION 10 MG/ML 20 ML VIAL IV ONE; +SODIUM CHLORIDE 0.9% 1000ML 1,000 ML IV SCH; -SULF-183 PO; -UBIQ1CAP8 PO; +VANCOMYCIN 1GM/270ML NSS 270 ML IV SCH
[2016-11-08 06:00] VITALS: BP 156/84; PULSE 85; TEMP 36.7; O2SAT 97; Ht 180.3 cm; Wt 93.3 kg
--- NOTE | 2016-11-08 06:49 | History & Physical Bridge Note ---
H&P Re-Evaluation Bridge Note: I have examined the patient, reviewed the History & Physical and in the interval since the performance of the History & Physical I have noted the following changes of clinical significance: No changes noted
--- NOTE | 2016-11-08 08:15 | DIAGNOSTIC IMAGING REPORT ---
INTRAOPERATIVE RADIOGRAPH CLINICAL HISTORY: Second toe amputation. Fluoroscopy time: 1 second. FINDINGS: A single spot fluoroscopic image of the right forefoot is presented. There has been amputation of the second toe at the level of the mid shaft of the second middle phalanx. IMPRESSION: Intraoperative image from second toe amputation as above. Electronically signed by: Carlos Alba M.D. 11/08/2016 8:13 AM Dictated Date/Time: 11/08/2016 8:12 AM
--- NOTE | 2016-11-08 08:18 | [facility] Operative Report ---
Operative Report Operative Date Nov 08, 2016. Pre-Operative Diagnosis Right foot second toe non healing ulcer Post-Operative Diagnosis Right foot second toe non healing ulcer Procedure(s) Performed Right foot second toe partial amputation Surgeon Dr. Cedrick Sanches Computational Sciences Professor Surgeon(s) Celina Edwards PA-C Estimated Blood Loss 5 cc Findings right 2nd toe ulcer/callus Specimens A: Right foot second toe, flexor tendon Culture: #1: Right second toe swab #2: Right second toe bone Drains None Anesthesia Sedation with regional Complication(s) None Disposition Recovery Room / PACU (stable) Indications Patient is an 86-year-old male who was seen and evaluated by Dr. Sanches for right second toe nonhealing wound, diabetic ulcer. He was referred by Dr. Morfin. He has been dealing with this wound for quite some time but most recently the last 6 months. He had had cultures done and he grew out MRSA which was treated. The wound healed but recently open back up again. He's been treated in the wound clinic. X-rays and MRI were completed and found some edema suggestive of osteomyelitis of the distal phalanx of the right second toe. Due to his failure of conservative treatment and nonhealing wound to surgical intervention was recommended. Risks and complications of surgery were discussed. Informed consent obtained. Description of Procedure Patient was taken to the operating room, placed under IV sedation. Peripheral nerve block of his ankle was completed by Dr. Morin. He was given 1 g of IV vancomycin for surgical prophylaxis. He was prepped and draped in routine sterile fashion. I was present during the entire case, please see Dr. Sanches 's operative report for further detail. He was awakened and transferred to the recovery room in stable condition. I attest to the content of the Intraoperative Record and any orders documented therein. Any exceptions are noted below.
--- NOTE | 2016-11-08 08:29 | [facility] Operative Report ---
Operative Report Operative Date Nov 08, 2016. Pre-Operative Diagnosis Right foot second toe non healing ulcer Post-Operative Diagnosis Right foot second toe non healing ulcer Procedure(s) Performed Right foot second toe partial amputation Surgeon Dr. Cedrick Sanches Chemical Manager Surgeon(s) Celina Edwards PA-C Estimated Blood Loss 5 cc Findings Ulceration at the tip of the right foot second toe communicating directly to the bone. The bone did not appear to be abnormally soft Specimens A: Right foot second toe, flexor tendon Culture: #1: Right second toe swab #2: Right second toe bone Drains None Anesthesia Sedation with regional Complication(s) None Disposition Recovery Room / PACU (stable) Indications The patient's an 86-year-old male with a 7 year history of ulceration at the tip of his right second toe. The toe is longer than the other toes. The ulceration has not responded to offloading IV antibiotics or wound care. The patient has declined revascularization. He does have palpable dorsalis pedis pulse but studies have demonstrated proximal occlusion. X-rays look normal. The MRI suggests osteomyelitis. Patient is taken to surgery for suspected osteomyelitis and a nonhealing ulcerations tip of the right second toe. Description of Procedure Informed consent was obtained. The patient identified as Danni Kan. He identified the operative site as the right foot second toe. I marked with my initials. Preoperative surgical timeout was performed. A preoperative dose of intravenous antibiotics was given. He was taken to the operating room positioned supine on the OR table. Tourniquet was applied to the right Below the peroneal nerve. An ankle block was performed by the anesthesiologist. Sedation was given. The right lower extremity was prepped and draped in the usual sterile fashion. The limb was exsanguinated with gravity tendon and the tourniquet inflated to 225 mmHg and then later to 250 mmHg. DVT prophylaxis will be done with early patient mobility a bump was placed under the right hip. The examination of the toe revealed a dense callosity at the tip of the toe with hypertrophic nail. There was a trace bit of swelling of the toe (slight bit of erythema around the ulceration but no drainage. Palpation of the ulceration with a hemostat revealed that it communicated directly down to the distal phalanx. The proximal extent of the nail fold and germinal matrix were noted. An incision was made in a fishmouth fashion creating dorsal and plantar flaps just proximal to this. The knife was used to incise sharply down of full-thickness to the bone. The distal phalanx was excised by amputating through the DIP joint. There is no. Once noted. Flexor tendon was pulled into the field cut and allowed to retract. Soft tissue was dissected off of the distal portion of the middle phalanx and then the head of the middle phalanx was amputated as well. This was smoothed off with a rongeur. A tourniquet was let down after approximately 10 minutes of inflation. Stasis was performed with Leksell cautery and pressure. The wound was irrigated with Betadine lavage. The incision was then closed with 4-0 nylon in interrupted simple and horizontal mattress fashion. There was a tension-free closure. A culture was obtained of the deep ulceration. Bone from the tip of the phalanx was also sent for culture. The toe was sent for specimen. There were no complications. Counts are correct at the and of the case blood loss was 5 mL. At the conclusion of the operation I spoke the patient's family informed of my findings. Detailed postoperative instructions were given. He'll follow up in the wound clinic as scheduled. He'll continue Bactrim as an outpatient until we follow up with him in 2 weeks. Pathology and cultures will be monitored. A soft sterile dressing was applied consisting of Xeroform 4 x 4's and a soft wrap and Yariel wrap. He was given a postop shoe. The hypertrophic ulceration and callus of the at the tip of the toe on its plantar surface was about 1 cm in diameter. I attest to the content of the Intraoperative Record and any orders documented therein. Any exceptions are noted below.
--- NOTE | 2016-11-08 08:33 | Discharge Instructions ---
Discharge Instructions Date of Service Nov 08, 2016. Visit Reason for Visit: Right Second Toe Diabetic Foot Ulcer Discharge Discharge Diagnosis / Problem: Right Second Toe Diabetic Foot Ulcer Discharge Goals Goal(s): Decrease discomfort, Improve function, Increase independence Activity Recommendations Activity Limitations: per Instructions/Follow-up section Weightbearing Status: Right weightbearing (as tolerated with post op shoe right foot) Anesthesia . Post Anesthesia Instructions: If you have had General Anesthesia or IV Sedation: * Do not drive today. * Resume driving when surgeon permits. * Do not make important decisions or sign legal documents today. * Call surgeon for: 1. Temperature elevations greater than 101 degrees F. 2. Uncontrollable pain. 3. Excessive bleeding. 4. Persistent nausea and vomiting. 5. Medication intolerance (nausea, vomiting or rash). * For nausea and vomiting use only clear liquids such as: tea, soda, bouillon until nausea subsides, then gradually increase diet as tolerated. * If you have any concerns or questions, call your surgeon's office. If physician is unavailable and it is an emergency, call 911 or go to the nearest emergency room. . Instructions / Follow-Up Instructions / Follow-Up DIET: * Resume previous diet. MEDICATIONS: * Please take your prescriptions as instructed at your pre-op appointment and/ or see medication discharge instructions listed above. * If concerns develop, call your physician's office at . * Bactrim 800 mg 1 tab by mouth twice a day 2 weeks. * Tramadol 50-100 mg 1-2 tabs every 6 hours as needed for mild to moderate pain. * Mansfield 5/325 mg 1 tab every 6 hours as needed for severe pain. SPECIAL CARE INSTRUCTIONS: * Ice to right foot as needed for pain and swelling. * Elevate right foot above heart to relieve pain and swelling. * Keep dressing clean, dry, intact. Keep clean and dry. * Wear her postop shoe right lower extremity when out of bed and ambulating. * Use walker to assist with ambulation. * You may weight-bear as tolerated on your right foot. * Ambulate as necessary, but limit the amount of walking you do in one day. Take frequent rests to elevate your foot. * Okay to wiggle toes as tolerated * Your surgical extremity may be discolored due to prepping agents used on the skin. A bluish-green tint is a normal variant and should not cause alarm. Call your doctor at [phone] if: * Temperature above 101 degrees * Pain not relieved by pain medicine ordered * There is increased drainage or redness from any incision * You have any unanswered questions, problems or concerns. FOLLOW UP VISIT: * If not already scheduled, please call the office at to schedule a follow-up appointment. * Follow up with infectious disease, Dr. Vázquez. Please call their office for an appointment in the next 2-3 weeks. * Follow-up in the wound clinic. Please call for appointment if you do not already have one scheduled. * You have a follow-up with Celina Edwards PA-C [facility] on 11/2016 at 1:45 PM * You have a follow-up with Dr. Sanches at [facility] on 2016 at 11:30 AM Diet Recommendations Recommended Home Diet: no limitations, resume previous diet Procedures Procedures Performed: Right foot second toe partial amputation Pending Studies Studies pending at discharge: no Medical Emergencies . Who to Call and When: Medical Emergencies: If at any time you feel your situation is an emergency, please call 911 immediately. . Non-Emergent Contact Non-Emergency issues call your: Surgeon Call Non-Emergent contact if: temperature is above 101, your pain is not controlled, wound has increased drainage, wound has increased redness, wound has increased pain, you have any medication questions . . "Provider Documentation" section prepared by Celina Edwards. . [place] Drug Monitoring Program Search Results: patient reviewed within database, no issues identified
--- NOTE | 2016-11-08 08:51 | Anesthesiology Progress Note ---
Anesthesia Post Op Note Date & Time Nov 08, 2016 at 08:51 Vital Signs Pain Intensity: 0 Vital Signs Past 12 Hours Date Time Temp Pulse Resp B/P (MAP) Pulse Ox O2 Delivery O2 Flow Rate FiO2 11/08/16 08:47 68 17 11/08/16 08:47 68 17 131/66 97 11/08/16 08:42 61 13 11/08/16 08:42 61 13 98 11/08/16 08:41 132/70 11/08/16 08:39 36.4 64 17 132/70 (98) 98 Room Air 11/08/16 08:37 67 16 11/08/16 08:37 67 16 99 11/08/16 08:36 66 21 150/74 98 11/08/16 08:36 67 21 11/08/16 08:35 64 19 98 11/08/16 08:35 65 19 11/08/16 08:32 135/68 11/08/16 08:32 135/68 11/08/16 08:30 68 12 11/08/16 08:30 66 12 97 11/08/16 08:30 68 12 11/08/16 08:30 66 12 97 11/08/16 08:26 140/69 11/08/16 08:26 140/69 11/08/16 08:25 64 15 96 11/08/16 08:25 64 15 96 11/08/16 08:25 64 15 11/08/16 08:25 64 15 11/08/16 08:21 125/70 11/08/16 08:21 125/70 11/08/16 08:20 67 14 11/08/16 08:20 67 14 11/08/16 08:20 68 14 97 11/08/16 08:20 68 14 97 11/08/16 08:16 138/73 11/08/16 08:16 138/73 11/08/16 08:15 36.0 67 16 138/73 97 Nasal Cannula 10 11/08/16 06:00 36.7 85 20 156/84 (108) 97 Room Air Notes Mental Status: alert / awake / arousable, participated in evaluation Pt Amnestic to Procedure: Yes Nausea / Vomiting: adequately controlled Pain: adequately controlled Airway Patency, RR, SpO2: stable & adequate BP & HR: stable & adequate Hydration State: stable & adequate Anesthetic Complications: no major complications apparent Block working well in pacu
[2016-11-08 09:14] VITALS: BP 145/70; PULSE 63; TEMP 36.3; O2SAT 97
[2016-11-08 09:32] VITALS: BP 170/80; PULSE 69; O2SAT 100
[2016-11-08 10:00] VITALS: BP 187/89; PULSE 74; TEMP 36.4; O2SAT 99
== END | disposition home or self-care (01) ==
LOC: C.ACU 05:41
PROVIDERS: ATTEND Physical Medicine & Rehabilitation Sports Medicine
DX: E11.621 Type 2 diabetes mellitus with foot ulcer (principal); L97.519 Non-pressure chronic ulcer of other part of right foot with unspecified severity; E11.40 Type 2 diabetes mellitus with diabetic neuropathy, unspecified; G47.30 Sleep apnea, unspecified; K21.9 Gastro-esophageal reflux disease without esophagitis; I35.0 Nonrheumatic aortic (valve) stenosis; Z79.4 Long term (current) use of insulin; Z79.82 Long term (current) use of aspirin

== ENCOUNTER → 2017-02-21 | Outpatient (CLI) | payer OTHER ==
[~2017-02-21] MED LIST changes: -ATROPINE SULFATE 0.1 MG/ML 5ML SYR IV PRN; -BACITRACIN 50000 UNIT VIAL ONE; -BUPIVACAINE 0.5 % 5 MG/1 ML MPF 30ML VIAL ONE; -BUPIVACAINE/EPINEPHRINE 0.25% 10 ML VIAL ONE; -DEXAMETHASONE SOD INJ 4 MG/ML VIAL ONE; -EpHEDrine SULFATE INJ 50 MG/ML AMP IV PRN; -FENTANYL CITRATE INJ 50 MCG/1 ML 2 ML VIAL IV PRN; -FENTANYL CITRATE INJ 50 MCG/1 ML 2 ML VIAL ONE; -HYDROCODONE/ACETAMOPHEN 5/325MG TAB PO PRN; -KETAMINE HCL INJ 50 MG/ML 10 ML VIAL ONE; -LACTATED RINGER'S 1000ML 1,000 ML IV SCH; -LIDOCAINE HCL 1% 20 ML VIAL ONE; -LIDOCAINE HCL 2% 2 ML VIAL (20MG/ML) ONE; -MIDAZOLAM HCL 1 MG/ML 2ML VIAL ONE; -MoRPHine SULFATE 2 MG/ML CARP IV PRN; -MoRPHine SULFATE 4 MG/ML 1 ML CARP\\VIAL IV PRN; -ONDANSETRON INJ 2 MG/ML 2 ML VIAL IV PRN; -POVIDONE-IODINE OP SOLN 30 ML BTL ONE; -PROMETHAZINE HCL INJ 6.25 MG in SODIUM CHLORIDE 0.9% 50ML 50 ML IV PRN; -PROPOFOL IV EMULSION 10 MG/ML 20 ML VIAL IV ONE; -SODIUM CHLORIDE 0.9% 1000ML 1,000 ML IV SCH; -VANCOMYCIN 1GM/270ML NSS 270 ML IV SCH
--- NOTE | 2017-02-21 13:50 | DIAGNOSTIC IMAGING REPORT ---
R TOE(S) MIN 2 VIEWS CLINICAL HISTORY: 86 years-old Male presenting with RT THIRD TOE PAIN. TECHNIQUE: Frontal, oblique, and lateral views of the right third toe were obtained. COMPARISON: 10/30/2016. FINDINGS: Osteopenia limits evaluation for nondisplaced fracture. Osteotomy defect of the middle phalanx of the second toe suggested. The tuft of the third toe is similarly blunted as on prior exam. No otto evidence of osseous erosion. No abnormality of the third toe heart from mild degenerative change. No displaced fracture or malalignment. Diffuse atherosclerosis. IMPRESSION: Stable appearance of the right third toe. No evidence of acute osseous injury or osseous erosion allowing for osteopenia. Electronically signed by: Cedrick Menendez M.D. 02/21/2017 1:49 PM Dictated Date/Time: 02/21/2017 1:47 PM
== END | disposition home or self-care (01) ==
LOC: C.RDSM 10:53
PROVIDERS: ATTEND Physician Assistant
DX: M79.674 Pain in right toe(s) (principal)

== ENCOUNTER → 2017-03-07 | Outpatient (CLI) | payer OTHER ==
[2017-03-07 10:54] LABS: BASO % 0.6 %; BASO ABS # 0.03 K/uL (0-0.2); COMPLETE YES; EOS % 4.7 %; HEMATOCRIT 41.8 % (42-52); IG% 0.6 %; LYMPH % 39.9 %; LYMPH ABS # 2.14 K/uL (1.2-3.4); MEAN CELL VOLUME 95.4 fL (80-100); MEAN CORPUSCULAR HEMOGLOBIN 33.1 pg (25-34); MEAN CORPUSCULAR HGB CONC 34.7 g/dl (32-36); MEAN PLATELET VOLUME 11.2 fL (7.4-10.4); MONO % 10.4 %; NEUT % 43.8 %; PLATELET COUNT 152 K/uL (130-400); RED BLOOD COUNT 4.38 M/uL (4.7-6.1); WHITE BLOOD COUNT 5.36 K/uL (4.8-10.8)
[2017-03-07 11:04] LABS: ESTIMATED AVERAGE GLUCOSE 166 mg/dl; HA1C FLAG Normal (Normal)
[2017-03-07 11:26] LABS: ALT/SGPT 24 U/L (12-78); AST/SGOT 16 U/L (15-37); BLOOD UREA NITROGEN 28 mg/dl (7-18); BUN/CREATININE RATIO 26.6 (10-20); CALCIUM 8.9 mg/dl (8.5-10.1); CARBON DIOXIDE 28 mmol/L (21-32); CHLORIDE 104 mmol/L (98-107); CREATININE 1.05 mg/dl (0.60-1.40); GLUCOSE 113 mg/dl (70-99); POTASSIUM 4.1 mmol/L (3.5-5.1); SODIUM 135 mmol/L (136-145)
[2017-03-07 11:36] LABS: ALKALINE PHOSPHATASE 84 U/L (45-117); CHOLESTEROL 184 mg/dl (0-200); CHOLESTEROL/HDL RATIO 4.7; HDL CHOLESTEROL 39 mg/dl; LDL CHOLESTEROL CALCULATED 107 mg/dl; TRIGLYCERIDES 192 mg/dl (0-150); VERY LOW DENSITY LIPOPROT CALC 38 mg/dl
== END | disposition home or self-care (01) ==
LOC: C.LABBC 09:03
PROVIDERS: ATTEND Internal Medicine
DX: R80.9 Proteinuria, unspecified (principal); E11.9 Type 2 diabetes mellitus without complications; G47.30 Sleep apnea, unspecified; E78.5 Hyperlipidemia, unspecified; R41.3 Other amnesia; E78.1 Pure hyperglyceridemia; I35.0 Nonrheumatic aortic (valve) stenosis; I25.10 Atherosclerotic heart disease of native coronary artery without angina pectoris; G62.9 Polyneuropathy, unspecified

== ENCOUNTER → 2017-06-29 | Outpatient (CLI) | payer OTHER ==
[~2017-06-29] MED LIST changes: +CETI10CA PO; -HYDR-5688 PO; +LPR25 PO; -TRAM-10 PO; +UBIQ1CAP8 PO
--- NOTE | 2017-06-29 12:55 | DIAGNOSTIC IMAGING REPORT ---
CHEST 2 VIEWS ROUTINE HISTORY: I35.0 Aortic valve [id number] Dyspnea on [id number] COMPARISON: Chest 09/08/2016. FINDINGS: The lungs are clear. Cardiac silhouette is normal in size. No pleural effusions. No pneumothorax. Poststernotomy changes. IMPRESSION: No acute process. Electronically signed by: Hakan Turpin M.D. 06/29/2017 12:54 PM Dictated Date/Time: 06/29/2017 12:52 PM
[2017-06-29 16:31] LABS: BASO % 0.4 %; BASO ABS # 0.02 K/uL (0-0.2); EOS ABS # 0.14 K/uL (0-0.5); HEMATOCRIT 42.7 % (42-52); HEMOGLOBIN 15.3 g/dL (14.0-18.0); IG# 0.06 K/uL (0.00-0.02); LYMPH % 33.8 %; LYMPH ABS # 1.56 K/uL (1.2-3.4); MEAN CORPUSCULAR HEMOGLOBIN 34.4 pg (25-34); MEAN CORPUSCULAR HGB CONC 35.8 g/dl (32-36); MEAN PLATELET VOLUME 10.8 fL (7.4-10.4); NEUT % 48.5 %; NEUT ABS # 2.24 K/uL (1.4-6.5); PLATELET COUNT 143 K/uL (130-400); RED CELL DISTRIBUTION WIDTH CV 13.1 % (11.5-14.5); RED CELL DISTRIBUTION WIDTH SD 45.7 fL (36.4-46.3); WHITE BLOOD COUNT 4.62 K/uL (4.8-10.8)
[2017-06-29 16:38] LABS: ALBUMIN 3.7 gm/dl (3.4-5.0); ALT/SGPT 23 U/L (12-78); BLOOD UREA NITROGEN 24 mg/dl (7-18); CALCIUM 9.3 mg/dl (8.5-10.1); CARBON DIOXIDE 26 mmol/L (21-32); CREATININE 1.07 mg/dl (0.60-1.40); GLUCOSE 113 mg/dl (70-99); POTASSIUM 4.2 mmol/L (3.5-5.1); SODIUM 137 mmol/L (136-145)
[2017-06-29 16:49] LABS: ALKALINE PHOSPHATASE 87 U/L (45-117); AST/SGOT 14 U/L (15-37); TOTAL PROTEIN 7.6 gm/dl (6.4-8.2)
== END | disposition home or self-care (01) ==
LOC: C.RADBC 12:30
PROVIDERS: ATTEND Internal Medicine
DX: G47.30 Sleep apnea, unspecified (principal); R41.3 Other amnesia; E11.40 Type 2 diabetes mellitus with diabetic neuropathy, unspecified; I25.10 Atherosclerotic heart disease of native coronary artery without angina pectoris; R53.82 Chronic fatigue, unspecified; I35.0 Nonrheumatic aortic (valve) stenosis; R06.09 Other forms of dyspnea

== ENCOUNTER 2017-07-08 23:34 | Inpatient (IN) | payer OTHER ==
[~2017-07-08] VITALS: Ht 180.3 cm; Wt 91.2 kg
[~2017-07-08 23:34] MED LIST changes: -CETI10CA PO; -LPR25 PO; -UBIQ1CAP8 PO
[2017-07-09] VITALS (19 sets, daily range): BP systolic 93–136; BP diastolic 53–80; PULSE 57–89; TEMP 36.5–36.8; O2SAT 96–100; Ht 180.3 cm; Wt 91.2 kg
[2017-07-09] MEDS ORDERED: CETI10CA PO (00:04)
[2017-07-09] MEDS ORDERED: UBIQ1CAP8 PO (00:05)
[2017-07-09 00:25] LABS: BASO % 0.5 %; BASO ABS # 0.02 K/uL (0-0.2); EOS % 2.3 %; HEMATOCRIT 42.9 % (42-52); HEMOGLOBIN 15.1 g/dL (14.0-18.0); IG# 0.02 K/uL (0.00-0.02); MEAN CELL VOLUME 96.2 fL (80-100); MEAN CORPUSCULAR HEMOGLOBIN 33.9 pg (25-34); MEAN CORPUSCULAR HGB CONC 35.2 g/dl (32-36); MEAN PLATELET VOLUME 10.6 fL (7.4-10.4); MONO % 9.8 %; MONO ABS # 0.42 K/uL (0.11-0.59); NEUT % 51.9 %; NEUT ABS # 2.23 K/uL (1.4-6.5); PLATELET COUNT 149 K/uL (130-400); RED CELL DISTRIBUTION WIDTH CV 12.9 % (11.5-14.5); RED CELL DISTRIBUTION WIDTH SD 44.9 fL (36.4-46.3); WHITE BLOOD COUNT 4.29 K/uL (4.8-10.8)
[2017-07-09 00:27] LABS: ALBUMIN 3.9 gm/dl (3.4-5.0); ALT/SGPT 28 U/L (12-78); BLOOD UREA NITROGEN 24 mg/dl (7-18); CALCIUM 8.8 mg/dl (8.5-10.1); CARBON DIOXIDE 27 mmol/L (21-32); CREATININE 1.15 mg/dl (0.60-1.40); GLUCOSE 158 mg/dl (70-99); POTASSIUM 3.8 mmol/L (3.5-5.1); SODIUM 138 mmol/L (136-145)
[2017-07-09 00:32] LABS: ALKALINE PHOSPHATASE 94 U/L (45-117); AST/SGOT 18 U/L (15-37); CKMB 4.6 ng/ml (0.5-3.6); TOTAL PROTEIN 7.7 gm/dl (6.4-8.2)
--- NOTE | 2017-07-09 01:12 | EMERGENCY ROOM VISIT NOTE ---
History Report prepared by Hemalatha: Amparo Wong Under the Supervision of: Dr. Zeina Taylor D.O. First contact with patient: 23:44 Chief Complaint: SYNCOPE (NEAR SYNCOPE) Stated Complaint: NEAR SYMCOPE/CHEST DISCOMFORT History of Present Illness The patient is an 86 year old male who presents to the Emergency Room with complaints of an episode of near syncope occurring prior to arrival. The patient 's states that tonight he had a nice, big Easter dinner and were getting ready to leave their daughters house when this episode occurred. She reports that the patient has bent down to tie his shoes and walk out to the car in the garage, but became pale. The patient states that he felt like he was going to pass out. His reports that he then vomited all of his dinner. The patient' s states that this is the third episode. She reports that nine days ago he walked a short bit and tried to walk back, but became pale and felt like he was going to pass out. She reports that she took him on Sunday to see Dr. Niño who did blood work, EKG, and a chest x-ray that were all normal. She reports that they then spent the whole week in the house not doing anything. The patient 's states that yesterday he had his second episode. She states that he bent down to put his shoes on and tried to walk from the front door to the back door of the house, but couldn't make it. She reports that they then opened the door so he had cold air and he started to feel better. The patient states that with each episode he gets substernal chest pain. He reports that the pain comes every time he walks. He states that he cannot even walk through the grocery store anymore and has to use an electric scooter. His notes that he was doing small exercises around [place] and has declined that quickly. He states that he has never passed out from it, but gets close. The patient notes that he has a history of moderate to severe aortic valve stenosis. He states that he is monitored every 6 months by cardiology because they do not think he will survive the surgery. He states they told him he was holding his own at his last check up. He notes that he had a triple bypass 4 years ago that ended with him getting pneumonia and an infection in his leg where they took the vein. The patient states that he feels good now. The patient denies abdominal pain. Source of History: patient, spouse/significant other Onset: prior to arrival Position: other (global) Quality: other (syncope) Timing: other (episode) Modifying Factors (Worsening): exertion Modifying Factors (Relieving): other (cold air) Associated Symptoms: + chest pain, + vomiting, No abdominal pain Note: The patient's complains of the patient becoming pale with each episode. Review of Systems See HPI for pertinent positives & negatives. A total of 10 systems reviewed and were otherwise negative. Past Medical & Surgical Medical Problems: (1) Acute cholecystitis (2) Aortic stenosis (3) Cellulitis and abscess of foot (4) Chest pain (5) Coronary artery bypass grafting (6) Diabetes mellitus (7) Diabetic peripheral neuropathy associated with type 2 diabetes mellitus (8) Foot deformity (9) Gastroesophageal reflux disease (10) Heart disease (11) History of diabetic ulcer of foot (12) Loss of sensation (13) Near syncope (14) Pre-ulcerative corn or callous Surgical Problems: (1) History of knee replacement (2) Hx of cholecystectomy (3) S/P hip replacement (4) S/P triple vessel bypass Family History Cancer Diabetes mellitus Heart disease Social History Smoking Status: Never Smoker Smokeless Tobacco Use: No Alcohol Use: occasionally Drug Use: none Marital Status: Housing Status: lives with significant other Occupation Status: retired Current/Historical Medications Scheduled Aspirin (Aspirin Ec), 81 MG PO QPM Finasteride (Proscar), 5 MG PO QPM Insulin Aspart Protamine & Asp (Novolog Mix 70/30), 45 UNITS SC QAM Insulin Aspart Protamine & Asp (Novolog Mix 70/30), 40 UNITS SC QPM Multiple Vitamins W/ Minerals (Preservision/Lutein), 1 CAP PO BID Probiotic Product (Probiotic), 1 TAB PO QAM Resveratrol (Resveratrol), 1 TAB PO QPM Turmeric (Curcuma Longa) (Turmeric), 1 TAB PO QPM Ubiquinol (Ubiquinol), 100 MG PO QPM Scheduled PRN Cetirizine Hcl (Zyrtec Allergy), 10 MG PO DAILY PRN for allergies Fluticasone Propionate (Nasal) (Flonase Allergy Relief), 1 SPRAY FRANCIE DIRECTED PRN for Nasal Congestion Allergies Coded Allergies: Bacitracin (Verified Allergy, Intermediate, RASH, 07/09/17) Neomycin (Verified Allergy, Intermediate, RASH, 07/09/17) Polymyxin B (Verified Allergy, Intermediate, RASH, 07/09/17) Unclassified Drugs (Unverified Allergy, Unknown, TEGADERM-RASH BLISTERS, ) Doxycycline (Verified Adverse Reaction, Mild, GI SYMPTOMS, 07/09/17) Tamsulosin (Verified Adverse Reaction, Unknown, hypotension/syncope, ) Physical Exam Vital Signs Date Time Temp Pulse Resp B/P (MAP) Pulse Ox O2 Delivery O2 Flow Rate FiO2 07/08/17 23:45 36.9 89 18 138/68 97 Room Air 07/08/17 23:43 88 Physical Exam HEENT: Head - normocephalic and atraumatic Pupils are equal, round, and reactive to light. Extraocular eye muscles are intact, and sclera are anicteric. Nose - moist nasal mucosa without discharge. Mouth - moist buccal mucosa. Oropharynx is nonerythematous and there is no tonsillar exudate or edema noted. Neck: Supple; no JVD, nuchal rigidity, cervical lymphadenopathy, or auscultated bruits. Heart: Regular rate and rhythm. There is a normal S1 and S2 with no murmurs, clicks, or gallops appreciated. Lungs: Clear to auscultation bilaterally with no wheezes, rales, or rhonchi. Abdomen: Soft, completely nontender, nondistended, with good bowel sounds. There are no palpable pulsatile masses or hepatosplenomegaly. There is no guarding, rigidity, or rebound noted. Extremities: No evidence of cyanosis, clubbing, or edema. There are easily palpable peripheral pulses. Skin: warm and dry with good turgor and no rashes. Medical Decision & Procedures ER Provider Diagnostic Interpretation: CHEST X-RAY: The results were interpreted by me. Borderline cardiomegaly. Very mild pulmonary vascular congestion. Sternotomy wires in place. Laboratory Results 07/08/17 23:30 Red Blood Count 4.46, Mean Corpuscular Volume 96.2, Mean Corpuscular Hemoglobin 33.9, Mean Corpuscular Hemoglobin Concent 35.2, Mean Platelet Volume 10.6, Neutrophils (%) (Auto) 51.9, Lymphocytes (%) (Auto) 35.0, Monocytes (%) (Auto) 9.8, Eosinophils (%) (Auto) 2.3, Basophils (%) (Auto) 0.5, Neutrophils # (Auto) 2.23, Lymphocytes # (Auto) 1.50, Monocytes # (Auto) 0.42, Eosinophils # (Auto) 0.10, Basophils # (Auto) 0.02 07/08/17 23:30 Test 07/08/17 23:30 White Blood Count 4.29 K/uL (4.8-10.8) Red Blood Count 4.46 M/uL (4.7-6.1) Hemoglobin 15.1 g/dL (14.0-18.0) Hematocrit 42.9 % (42-52) Mean Corpuscular Volume 96.2 fL (80-100) Mean Corpuscular Hemoglobin 33.9 pg (25-34) Mean Corpuscular Hemoglobin Concent 35.2 g/dl (32-36) Platelet Count 149 K/uL (130-400) Mean Platelet Volume 10.6 fL (7.4-10.4) Neutrophils (%) (Auto) 51.9 % Lymphocytes (%) (Auto) 35.0 % Monocytes (%) (Auto) 9.8 % Eosinophils (%) (Auto) 2.3 % Basophils (%) (Auto) 0.5 % Neutrophils # (Auto) 2.23 K/uL (1.4-6.5) Lymphocytes # (Auto) 1.50 K/uL (1.2-3.4) Monocytes # (Auto) 0.42 K/uL (0.11-0.59) Eosinophils # (Auto) 0.10 K/uL (0-0.5) Basophils # (Auto) 0.02 K/uL (0-0.2) RDW Standard Deviation 44.9 fL (36.4-46.3) RDW Coefficient of Variation 12.9 % (11.5-14.5) Immature Granulocyte % (Auto) 0.5 % Immature Granulocyte # (Auto) 0.02 K/uL (0.00-0.02) Anion Gap 9.0 mmol/L (3-11) Est Creatinine Clear Calc Drug Dose 54.0 ml/min Estimated GFR () 66.4 Estimated GFR (Non- 57.3 BUN/Creatinine Ratio 21.1 (10-20) Calcium Level 8.8 mg/dl (8.5-10.1) Total Bilirubin 0.5 mg/dl (0.2-1) Aspartate Amino Transf (AST/SGOT) 18 U/L (15-37) Alanine Aminotransferase (ALT/SGPT) 28 U/L (12-78) Alkaline Phosphatase 94 U/L (45-117) Total Creatine Kinase 161 U/L (39-308) Creatine Kinase MB 4.6 ng/ml (0.5-3.6) Creatine Kinase MB Ratio 2.9 (0-3.0) Troponin I < 0.015 ng/ml (0-0.045) Total Protein 7.7 gm/dl (6.4-8.2) Albumin 3.9 gm/dl (3.4-5.0) Globulin 3.8 gm/dl (2.5-4.0) Albumin/Globulin Ratio 1.0 (0.9-2) Laboratory results per my review. Medications Administered Medications (Trade) Dose Ordered Sig/Mildred Route Start Time Stop Time Status Last Admin Dose Admin Sodium Chloride 1,000 ml @ 100 mls/hr Q10H IV 07/09/17 01:04 08/08/17 01:03 07/09/17 02:37 100 MLS/HR ECG Per My Interpretation Indication: syncope Rate (beats per minute): 87 Rhythm: normal sinus Findings: 1st degree AV block, PVC, ST depression (leads 1, aVL, and slightly in lateral leads) Comparison ECG Date: 11/06/2016 Change: St segment depression is more depressed in leads 1 and aVL compared to the old. ED Course 2348: Past medical records reviewed. The patient was evaluated in room B9. A complete history and physical exam was performed. A 12-lead EKG was obtained as described above. He had a chest x-ray as described above. Was observed on the secretarial teacher and pulse oximeter. 0038: Discussed the patient's case with Dr. De Leon [place] [facility] The patient will be evaluated for further management. 0044: I reevaluated the patient and updated him on the treatment plan. He feels well. Medical Decision The patient is an 86 year old male who presents to the Emergency Room with complaints of an episode of near syncope occurring prior to arrival. Differential diagnoses include orthostasis, dehydration, worsening aortic stenosis, cardiac dysrhythmia, cardiac ischemia. LABS: White count 4.2 Stable H&H Glucose 138 BUN 24 Creatinine 1.1 Normal LFTs Total CKA 161 CKMB 4.6 Normal troponin This is an 86-year-old male patient with a history of moderate to severe aortic stenosis who presents to the emergency department with an episode of near syncope and vomiting. Over the past 10 days, the patient's had increased episodes of exercise intolerance and near syncope. I am concerned that the patient's aortic stenosis has reached a critical level. The explains that he can only walk a very short distance before he becomes extremely short of breath, pale, diaphoretic and complaining of chest pain. The patient did have episodes of chest pain tonight that resolved with rest. EKG had some very subtle lateral changes to include some ST segment depression. The patient has been told in the past that he is not a candidate to have the aortic valve replaced or repaired. However, I am concerned that he is at great risk for an episode of syncope or a drop attack. I discussed the case with the [facility] Hospitalist and they will evaluate for further management. Medication Reconcilliation Current Medication List: was personally reviewed by me Blood Pressure Screening Patient's blood pressure: Normal blood pressure Will be further monitored by the hospitalist. Consults Time Called: 35 Consulting Physician: Dr. Moises RONDON Hospitalist Returned Call: 0038 Discussed the patient's case with Dr. Moises RONDON Hospitalist. The patient will be evaluated for further management. Impression Primary Impression: Near syncope Additional Impressions: Aortic stenosis Chest pain Scribe Attestation The scribe's documentation has been prepared under my direction and personally reviewed by me in its entirety. I confirm that the note above accurately reflects all work, treatment, procedures, and medical decision making performed by me. Departure Information Dispostion Being Evaluated By Hospitalist Referrals Cedrick Niño M.D. (PCP) Patient Instructions My [facility] Health Problem Qualifiers Additional Impressions: Aortic stenosis Cardiac valve disease etiology: etiology unspecified Qualified Codes: I35.0 - Nonrheumatic aortic (valve) stenosis Chest pain Chest pain type: precordial pain Qualified Codes: R07.2 - Precordial pain
[2017-07-09] MEDS ORDERED: MoRPHine SULFATE 2 MG/ML CARP IV PRN (01:15)
[2017-07-09] MEDS ORDERED: ALUMINUM/MAGNESIUM/SIMETH (MAALOX MAX) 30 ML UDC PO PRN (01:15)
[2017-07-09] MEDS ORDERED: ACETAMINOPHEN 325 MG TAB PO PRN (01:15)
[2017-07-09] MEDS ORDERED: ZOLPIDEM TARTRATE 5 MG TAB PO PRN (01:15)
[2017-07-09] MEDS ORDERED: CETIRIZINE HCL 10 MG TAB PO PRN (01:15)
[2017-07-09] MEDS ORDERED: POLYETHYLENE (MIRALAX) 17 GM PACK PO PRN (01:15)
[2017-07-09] MEDS ORDERED: FLUTICASONE PROPIONATE NA SPR 16 GM BTL NAE PRN (01:15)
[2017-07-09] MEDS ORDERED: ONDANSETRON INJ 2 MG/ML 2 ML VIAL IV PRN (01:15)
[2017-07-09] MEDS ORDERED: NITROGLYCERIN 0.4 MG SL PER TAB CHARGE SL PRN (01:15)
[2017-07-09] MEDS ORDERED: MAGNESIUM HYDROXIDE SUSP 30 ML UDC PO PRN (01:15)
[2017-07-09] MEDS ORDERED: IV FLUIDS COMPLETED PRN (01:30)
--- NOTE | 2017-07-09 01:39 | History and Physical ---
History & Physical Date & Time of Service: Jul 09, 2017 at 01:17 Chief Complaint: Near Symcope/Chest Discomfort Primary Care Physician: Cedrick Niño M.D. History of Present Illness Source: patient, family () Pt is a pleasant 86M with a PMHx of CABG, Moderate Aortic Stenosis, DM2 s/p R Toe Amputation & CLINT p/w near fall today after walking from the kitchen to the bedroom. Pt reports that he became lightheaded and had some midline dull chest pain. He lied down and his symptoms went away. This is the patients third near fall in the past week and all events were precipitated by walking. The last event happened after walking to his house from the mailbox. Tonight event was the only event with chest pain. Patient follows with Dr. Dumont and Dr. Niño. Dr. Niño has ordered an echocardiogram for the end of the month. Pt reports being told that he was not a good candidate for Aortic replacement surgery because of his CABG and the resulting complications from it. Other than the near syncopal events patient describes his recent health as good. See ROS. PMHx: CABG, , CLINT, DM2 on Insulin. SHx: Never smoker, never chewed. Lives with . Past Medical/Surgical History Medical Problems: (1) Acute cholecystitis (2) Cellulitis and abscess of foot (3) Cellulitis of right toe (4) Chest pain (5) Coronary artery bypass grafting (6) Dehydration (7) Diabetes mellitus (8) Diabetic peripheral neuropathy associated with type 2 diabetes mellitus (9) Dizziness (10) Fall (11) Foot deformity (12) Gastroesophageal reflux disease (13) Heart disease (14) History of diabetic ulcer of foot (15) Loss of sensation (16) Nausea & vomiting (17) Near syncope (18) Near syncope (19) Pneumonia (20) Pre-ulcerative corn or callous (21) UTI (urinary tract infection) Surgical Problems: (1) History of knee replacement (2) Hx of cholecystectomy (3) S/P hip replacement (4) S/P triple vessel bypass Family History Cancer Diabetes mellitus Heart disease Social History Smoking Status: Never Smoker Smokeless Tobacco Use: No Drug Use: none Marital Status: Housing status: lives with family Occupational Status: retired Immunizations History of Influenza Vaccine: Yes History of Tetanus Vaccine?: UTD History of Pneumococcal: Yes History of Hepatitis B Vaccine: No Allergies Coded Allergies: Bacitracin (Verified Allergy, Intermediate, RASH, 07/09/17) Neomycin (Verified Allergy, Intermediate, RASH, 07/09/17) Polymyxin B (Verified Allergy, Intermediate, RASH, 07/09/17) Unclassified Drugs (Unverified Allergy, Unknown, TEGADERM-RASH BLISTERS, ) Doxycycline (Verified Adverse Reaction, Mild, GI SYMPTOMS, 07/09/17) Tamsulosin (Verified Adverse Reaction, Unknown, hypotension/syncope, ) Home Medications Scheduled Aspirin (Aspirin Ec), 81 MG PO QPM Finasteride (Proscar), 5 MG PO QPM Insulin Aspart Protamine & Asp (Novolog Mix 70/30), 45 UNITS SC QAM Insulin Aspart Protamine & Asp (Novolog Mix 70/30), 40 UNITS SC QPM Multiple Vitamins W/ Minerals (Preservision/Lutein), 1 CAP PO BID Probiotic Product (Probiotic), 1 TAB PO QAM Resveratrol (Resveratrol), 1 TAB PO QPM Turmeric (Curcuma Longa) (Turmeric), 1 TAB PO QPM Ubiquinol (Ubiquinol), 100 MG PO QPM Scheduled PRN Cetirizine Hcl (Zyrtec Allergy), 10 MG PO DAILY PRN for allergies Fluticasone Propionate (Nasal) (Flonase Allergy Relief), 1 SPRAY FRANCIE DIRECTED PRN for Nasal Congestion Review of Systems Constitutional: No fever, No chills, No weight loss Respiratory: No cough, No sputum, No shortness of breath Cardiovascular: + chest pain, No edema, No claudication, No palpitations Abdomen: No pain, No nausea, No vomiting, No diarrhea, No constipation Musculoskeletal: No joint pain Genitourinary - Male: No hematuria, No dysuria, No urinary frequency, No urinary urgency Neurologic: No memory loss Psychiatric: No depression symptoms Integumentary: No rash Physical Exam Vital Signs Date Time Temp Pulse Resp B/P (MAP) Pulse Ox O2 Delivery O2 Flow Rate FiO2 07/08/17 23:45 36.9 89 18 138/68 97 Room Air 07/08/17 23:43 88 General Appearance: WD/WN, no apparent distress Head: normocephalic, atraumatic Eyes: normal inspection, PERRL ENT: normal ENT inspection Neck: supple, no JVD Respiratory/Chest: chest non-tender, normal breath sounds, no respiratory distress, no accessory muscle use, + crackles (bilateral lower lobes), + pertinent finding (midline sternotomy scar. ) Cardiovascular: regular rate, rhythm, + pertinent finding (systolic murmur, ) Abdomen/GI: normal bowel sounds, non tender, soft, no organomegaly, no pulsatile mass Back: normal inspection, no CVA tenderness Extremities/Musculoskelatal: normal inspection, no calf tenderness, no pedal edema Neurologic/Psych: district sales manager II-XII nml as tested, no motor/sensory deficits, alert, normal mood/affect, oriented x 3 Skin: normal color, warm/dry, no rash Diagnostics Laboratory Results Results Past 24 Hours Test 07/08/17 23:30 07/08/17 23:50 Range/Units White Blood Count 4.29 4.8-10.8 K/uL Red Blood Count 4.46 4.7-6.1 M/uL Hemoglobin 15.1 14.0-18.0 g/dL Hematocrit 42.9 42-52 % Mean Corpuscular Volume 96.2 80-100 fL Mean Corpuscular Hemoglobin 33.9 25-34 pg Mean Corpuscular Hemoglobin Concent 35.2 32-36 g/dl Platelet Count 149 130-400 K/uL Mean Platelet Volume 10.6 7.4-10.4 fL Neutrophils (%) (Auto) 51.9 % Lymphocytes (%) (Auto) 35.0 % Monocytes (%) (Auto) 9.8 % Eosinophils (%) (Auto) 2.3 % Basophils (%) (Auto) 0.5 % Neutrophils # (Auto) 2.23 1.4-6.5 K/uL Lymphocytes # (Auto) 1.50 1.2-3.4 K/uL Monocytes # (Auto) 0.42 0.11-0.59 K/uL Eosinophils # (Auto) 0.10 0-0.5 K/uL Basophils # (Auto) 0.02 0-0.2 K/uL RDW Standard Deviation 44.9 36.4-46.3 fL RDW Coefficient of Variation 12.9 11.5-14.5 % Immature Granulocyte % (Auto) 0.5 % Immature Granulocyte # (Auto) 0.02 0.00-0.02 K/uL Sodium Level 138 136-145 mmol/L Potassium Level 3.8 3.5-5.1 mmol/L Chloride Level 101 98-107 mmol/L Carbon Dioxide Level 27 21-32 mmol/L Anion Gap 9.0 3-11 mmol/L Blood Urea Nitrogen 24 7-18 mg/dl Creatinine 1.15 0.60-1.40 mg/dl Est Creatinine Clear Calc Drug Dose 54.0 ml/min Estimated GFR () 66.4 Estimated GFR (Non- 57.3 BUN/Creatinine Ratio 21.1 10-20 Random Glucose 158 70-99 mg/dl Calcium Level 8.8 8.5-10.1 mg/dl Total Bilirubin 0.5 0.2-1 mg/dl Aspartate Amino Transf (AST/SGOT) 18 15-37 U/L Alanine Aminotransferase (ALT/SGPT) 28 12-78 U/L Alkaline Phosphatase 94 45-117 U/L Total Creatine Kinase 161 39-308 U/L Creatine Kinase MB 4.6 0.5-3.6 ng/ml Creatine Kinase MB Ratio 2.9 0-3.0 Troponin I < 0.015 0-0.045 ng/ml Total Protein 7.7 6.4-8.2 gm/dl Albumin 3.9 3.4-5.0 gm/dl Globulin 3.8 2.5-4.0 gm/dl Albumin/Globulin Ratio 1.0 0.9-2 Bedside Glucose 138 70-99 mg/dl EKG EKG reviewed with Dr. De Leon, no ST changes. Sinus Rhythm. Impression Assessment and Plan 86M with a PMHx of CABG, Moderate Aortic Stenosis, DM2 s/p R Toe Amputation & CLINT p/w a near syncopal event today after walking from the kitchen to the bedroom. This has happened three times in the past week. Initial EKG shows no ST Changes, CKMB was elevated but initial trop was negative. Near Syncope 2/2 to Pt has a 3/6 murmur in exam and HPI supports exertional syncope consistent with . Last Echocardiogram in [facility] was in 2012 and showed mild to moderate . Will trend Troponins and CKMB. Cardiology consulted - will hold off ordering an echo pending their recommendations. EKG in the AM Daily ASA. DM2 HBA1C was 7.4 in February 2017. Continue home Novolog Regimen. Glycemic Control Consult. CLINT: Set up of CPAP. DVT Proph: SCDs Diet: NPO + IVF of NSS @ 125mls/hr. FULL CODE. Resuscitation Status VTE Prophylaxis Will order VTE Prophylaxis: Yes Resident Involvement: Resident Care Provided Care Provided: Adult Hospital Medicine History Patient seen and examined, chart reviewed, case discussed with Dr. Martinez and I agree with his assessment and plan as documented above. Briefly, patient is an 86yo C male with history of aortic stenosis not amenable to surgical repair presenting with multiple episodes of exertional syncope. Patient reports that he becomes acutely dyspneic, dizzy and feels that he will pass out with minimal exertion. He had such an episode while walking to the mailbox then around his yard and tonight from his kitchen to his bedroom. Patient also endorses left sided chest pain that occurs with exertion and is relieved with rest. On physical exam he is afebrile, hemodynamically stable HR=89 and regular, BP= 138/68, no respiratory distress and adequate oxygenation on room air. He is sitting comfortably in bed, NAD. Skin warm, dry and intact with no rashes or lesions. Heart with 3/6 crescendo-decrescendo murmur at 2nd right ICS with radiation across the precordium and to bilateral carotids. Lungs with crackles in bilateral bases. Abdomen benign. Extremities warm, well perfused with no edema. Labs significant for elevated CK-MB at 4.6, troponin undetectable. EKG with NSR at 87bpm, left axis deviation, 1st degree AV block with IN interval of 228, PVC x 1, relatively unchanged from prior [id number]. 86yo male with , exertional syncope. 1. Near Syncope: Admit to telemetry. Trend cardiac enzymes. Maintain stable hemodynamics. Cardiology consultation patient is presently not on any cardiac medications, may benefit from afterload reduction if tolerated. 2. Aortic Stenosis - last echo in system read mild to moderate with JUAN PABLO of 1.1cm. Will obtain repeat 2D 3. Diabetes - blood sugar well controlled at 138. Continue home insulin regimen 4. CLINT - CPAP when asleep Remainder of plan per resident note
[2017-07-09] MEDS ORDERED: PHARMACY GLYCEMIC MGMT CONSULT PRN (01:44)
[2017-07-09] MEDS ORDERED: GLUCOSE 10 TABS/TUBE PO PRN (02:30)
[2017-07-09] MEDS ORDERED: DEXTROSE 50% 50 ML SYR IV PRN (02:30)
[2017-07-09] MEDS ORDERED: GLUCAGON FOR INJ 1 MG VIAL SQ PRN (02:30)
[2017-07-09] MEDS ORDERED: GLUCOSE 40% GEL 15 GM TUBE PO PRN (02:30)
[2017-07-09] MEDS: SODIUM CHLORIDE 0.9% 1000ML 1,000 ML IV SCH ×3 (02:37→20:57)
[2017-07-09] MEDS: NITROGLYCERIN 2% OINTMENT 30GM TUBE EXT SCH ×4 (03:54→20:48)
[2017-07-09] MEDS: INSULIN ASPART 100 UNITS/ML 3 ML PEN SC SCH ×3 (06:00→20:48)
--- NOTE | 2017-07-09 07:10 | DIAGNOSTIC IMAGING REPORT ---
CHEST ONE VIEW PORTABLE HISTORY: Chest discomfort. Near syncope. eval for cardiomegly COMPARISON: None. FINDINGS: The lungs are clear. Cardiac silhouette is normal in size. No pleural effusions. No pneumothorax. Poststernotomy changes. IMPRESSION: No acute process. Electronically signed by: Hakan Turpin M.D. 07/09/2017 7:08 AM Dictated Date/Time: 07/09/2017 7:07 AM
[2017-07-09 07:42] LABS: CKMB 5.9 ng/ml (0.5-3.6)
--- NOTE | 2017-07-09 08:05 | Family Medicine Progress Note ---
Progress Note Date of Service Jul 09, 2017. Subjective Pt evaluation today including: conversation w/ patient, physical exam, chart review, lab review, review of studies, review of inpatient medication list Pain: denies pain PO Intake: adequate Voiding: no voiding problems Overnight, no acute events. Chest pain has resolved. He denies SOB, presyncope, syncope, n/v, diaphoresis Constitutional: No fever, No chills, No weakness Respiratory: No cough, No wheezing, No shortness of breath Cardiovascular: No chest pain, No edema, No palpitations Abdomen: No pain, No nausea, No vomiting, No diarrhea Musculoskeletal: No muscle pain, No calf pain Male : No dysuria, No urinary frequency, No incontinence Skin: No rash, No itch Medications Current Inpatient Medications Medications (Trade) Dose Ordered Sig/Mildred Route Start Time Stop Time Status Last Admin Dose Admin Sodium Chloride 1,000 ml @ 100 mls/hr Q10H IV 07/09/17 01:04 08/08/17 01:03 07/09/17 02:37 100 MLS/HR Acetaminophen (Tylenol Tab) 650 mg Q4H PRN PO 07/09/17 01:15 08/08/17 01:14 Al Hydrox/Mg Hydrox/Simethicone (Maalox Max Susp) 15 ml Q4H PRN PO 07/09/17 01:15 08/08/17 01:14 Magnesium Hydroxide (Milk Of Magnesia Susp) 30 ml Q12H PRN PO 07/09/17 01:15 08/08/17 01:14 Zolpidem Tartrate (Ambien Tab) 5 mg HSZ PRN PO 07/09/17 01:15 08/08/17 01:14 Ondansetron HCl (Zofran Inj) 4 mg Q6H PRN IV 07/09/17 01:15 08/08/17 01:14 Nitroglycerin (Nitrostat Tab) 0.4 mg UD PRN SL 07/09/17 01:15 08/08/17 01:14 Nitroglycerin (Nitroglycerin 2% Oint) 1 inch Q6H EXT 07/09/17 03:00 08/08/17 02:59 07/09/17 03:54 1 INCH Morphine Sulfate (MoRPHine SULFATE INJ) 2 mg Q30M PRN IV 07/09/17 01:15 07/23/17 01:14 Polyethylene (Miralax Powder Packet) 17 gm DAILY PRN PO 07/09/17 01:15 08/08/17 01:14 Aspirin (Ecotrin Tab) 81 mg QAM PO 07/09/17 09:00 08/08/17 08:59 Finasteride (Proscar Tab) 5 mg QPM PO 07/09/17 21:00 08/08/17 20:59 Fluticasone Propionate (Flonase Nasal [place]) 1 sprays BID PRN FRANCIE 07/09/17 01:15 08/08/17 01:14 Insulin Human NPH (novoLIN-N NPH) 22 units BIDM SC 07/09/17 07:30 08/08/17 07:29 Cetirizine HCl (zyrTEC TAB) 10 mg DAILY PRN PO 07/09/17 01:15 08/08/17 01:14 Miscellaneous Information (Consult Glycemic Management Pharmacy) 1 ea UD PRN N/A 07/09/17 01:44 08/08/17 01:43 Miscellaneous (Iv Fluids Completed) 1 ea PRN PRN N/A 07/09/17 01:30 07/09/18 01:29 Insulin Aspart (novoLOG ASPART) SLIDING SCALE Q6 SC 07/09/17 06:00 08/08/17 05:59 Glucose (Glucose 40% Gel) 15-30 GRAMS 15 GRAMS... UD PRN PO 07/09/17 02:30 08/08/17 02:29 Glucose (Glucose Chew Tab) 4-8 Tablets 4 Tabl... UD PRN PO 07/09/17 02:30 08/08/17 02:29 Dextrose (Dextrose 50% 50ML Syringe) 25-50ML OF 50% DW IV FOR... UD PRN IV 07/09/17 02:30 08/08/17 02:29 Glucagon (Glucagon Inj) 1 mg UD PRN SQ 07/09/17 02:30 08/08/17 02:29 Heparin Sodium/ Dextrose 1 ea Q15M N/A 07/09/17 07:57 08/08/17 07:56 Objective Vital Signs Date Time Temp Pulse Resp B/P (MAP) Pulse Ox O2 Delivery O2 Flow Rate FiO2 07/09/17 07:08 36.7 70 20 123/68 (86) 97 Room Air 07/09/17 04:04 Room Air 07/09/17 03:33 36.7 75 18 111/64 (80) 97 Room Air 07/09/17 02:42 36.5 89 16 116/75 Room Air 07/09/17 01:47 97 07/09/17 01:38 87 18 167/94 93 Room Air 07/08/17 23:45 36.9 89 18 138/68 97 Room Air 07/08/17 23:43 88 Physical Exam General Appearance: WD/WN, no apparent distress Eyes: PERRL, EOMI Neck: supple, no adenopathy, trachea midline Respiratory/Chest: lungs clear, normal breath sounds, no respiratory distress Cardiovascular: regular rate, rhythm, no edema, + systolic murmur Abdomen: normal bowel sounds, non tender, soft Extremities: non-tender, normal inspection, no pedal edema Neurologic/Psychiatric: alert, normal mood/affect, oriented x 3 Skin: normal color, no rash Laboratory Results Results Past 24 Hours Test 07/08/17 23:30 07/08/17 23:50 07/09/17 02:09 07/09/17 05:59 Range/Units White Blood Count 4.29 4.8-10.8 K/uL Red Blood Count 4.46 4.7-6.1 M/uL Hemoglobin 15.1 14.0-18.0 g/dL Hematocrit 42.9 42-52 % Mean Corpuscular Volume 96.2 80-100 fL Mean Corpuscular Hemoglobin 33.9 25-34 pg Mean Corpuscular Hemoglobin Concent 35.2 32-36 g/dl Platelet Count 149 130-400 K/uL Mean Platelet Volume 10.6 7.4-10.4 fL Neutrophils (%) (Auto) 51.9 % Lymphocytes (%) (Auto) 35.0 % Monocytes (%) (Auto) 9.8 % Eosinophils (%) (Auto) 2.3 % Basophils (%) (Auto) 0.5 % Neutrophils # (Auto) 2.23 1.4-6.5 K/uL Lymphocytes # (Auto) 1.50 1.2-3.4 K/uL Monocytes # (Auto) 0.42 0.11-0.59 K/uL Eosinophils # (Auto) 0.10 0-0.5 K/uL Basophils # (Auto) 0.02 0-0.2 K/uL RDW Standard Deviation 44.9 36.4-46.3 fL RDW Coefficient of Variation 12.9 11.5-14.5 % Immature Granulocyte % (Auto) 0.5 % Immature Granulocyte # (Auto) 0.02 0.00-0.02 K/uL Sodium Level 138 136-145 mmol/L Potassium Level 3.8 3.5-5.1 mmol/L Chloride Level 101 98-107 mmol/L Carbon Dioxide Level 27 21-32 mmol/L Anion Gap 9.0 3-11 mmol/L Blood Urea Nitrogen 24 7-18 mg/dl Creatinine 1.15 0.60-1.40 mg/dl Est Creatinine Clear Calc Drug Dose 54.0 ml/min Estimated GFR () 66.4 Estimated GFR (Non- 57.3 BUN/Creatinine Ratio 21.1 10-20 Random Glucose 158 70-99 mg/dl Calcium Level 8.8 8.5-10.1 mg/dl Total Bilirubin 0.5 0.2-1 mg/dl Aspartate Amino Transf (AST/SGOT) 18 15-37 U/L Alanine Aminotransferase (ALT/SGPT) 28 12-78 U/L Alkaline Phosphatase 94 45-117 U/L Total Creatine Kinase 161 39-308 U/L Creatine Kinase MB 4.6 0.5-3.6 ng/ml Creatine Kinase MB Ratio 2.9 0-3.0 Troponin I < 0.015 0-0.045 ng/ml Total Protein 7.7 6.4-8.2 gm/dl Albumin 3.9 3.4-5.0 gm/dl Globulin 3.8 2.5-4.0 gm/dl Albumin/Globulin Ratio 1.0 0.9-2 Bedside Glucose 138 168 190 70-99 mg/dl Test 07/09/17 07:02 Range/Units Creatine Kinase MB 5.9 0.5-3.6 ng/ml Creatine Kinase MB Ratio 0-3.0 Troponin I 0.636 0-0.045 ng/ml Assessment and Plan 86M with a PMHx of CABG, Moderate Aortic Stenosis ( per ECHO in 2012), DM2 s/p R Toe Amputation & CLINT p/w histor yf multiple near syncopal events. Initial EKG s, CKMB was elevated, second troponin newly elevated Near Syncope Chest pain secondary to A.S vs ACS pre syncope likely secondary to A.S. Last Echocardiogram( 2012) mild to moderate . Echo (07/09) Left ventricular systolic function is normal. Proximal inferior wall akinesis (thinned and echo dense). Ejection Fraction = 55-60%. There is mild concentric left ventricular hypertrophy. Grade I diastolic dysfunction, (abnormal relaxation pattern). Severe valvular aortic stenosis. There is mild mitral regurgitation. There is mild tricuspid regurgitation. initial negative troponin, trended up to .636 Per Cardiology: Catheterization scheduled today, F/u report Daily ASA. DM2 HBA1C was 7.4 in February 2017. Continue current Novolog Regimen. Glycemic Control Consult. CLINT: CPAP. DVT Proph: SCDs Diet: NPO + IVF of NSS @ 125mls/hr. FULL CODE. Resident Physician Supervision Note: I interviewed and examined the patient. Discussed with Dr. Higgins and agree with findings and plan as documented in the note. Any exceptions or clarifications are listed here: None Documented By: Danny Ellis feeling ok now discussed plan for LHC - pt in agreement updated family as well vitals noted nad breathing unlabored no pallor or icterus near syncope/elevated troponin - CAD related, related, possibly both - for C later today. would benefit from more robust med management if he allows Continued [facility] stay due to: multiple IV medications needed Discharge planning: home Resident Tracking Resident Involvement: Resident Care Provided Care Provided: Adult Hospital Medicine
[2017-07-09 08:40] LABS: HEMATOCRIT 36.5 % (42-52); MEAN CELL VOLUME 94.8 fL (80-100); MEAN CORPUSCULAR HEMOGLOBIN 33.8 pg (25-34); MEAN PLATELET VOLUME 10.2 fL (7.4-10.4); PLATELET COUNT 125 K/uL (130-400); RED CELL DISTRIBUTION WIDTH CV 13.1 % (11.5-14.5); RED CELL DISTRIBUTION WIDTH SD 45.1 fL (36.4-46.3); WHITE BLOOD COUNT 4.54 K/uL (4.8-10.8)
[2017-07-09 08:52] LABS: MEAN CORPUSCULAR HGB CONC 35.6 g/dl (32-36)
[2017-07-09 08:53] LABS: PTT PATIENT 24.6 SECONDS (21.0-31.0)
[2017-07-09] MEDS: HEPARIN 25,000 UNIT/500ML D5W 500 ML IV SCH (08:56)
[2017-07-09] MEDS: INSULIN HUMAN NPH SC SCH (08:57)
[2017-07-09 09:11] LABS: HEMOGLOBIN A1C 7.6 % (4.5-5.6)
[2017-07-09] MEDS ORDERED: METOPROLOL TARTRATE 25 MG TAB PO ONE (09:12)
[2017-07-09] MEDS ORDERED: PERFLUTREN LIPID MICROSPHERE (DEFINITY) IV ONE (10:49)
[2017-07-09] MEDS: ASPIRIN 81 MG ECTAB PO SCH (10:50)
[2017-07-09] MEDS ORDERED: MIDAZOLAM HCL 1 MG/ML 2ML VIAL ONE (12:28)
[2017-07-09] MEDS ORDERED: FENTANYL CITRATE INJ 50 MCG/1 ML 2 ML VIAL ONE (12:28)
--- NOTE | 2017-07-09 12:45 | Cardiology Consultation ---
Cardiology Consultation Date of Consultation: Jul 09, 2017. Requesting Physician: Dr. Day Attending Physician: Dr. Ellis Reason for Consultation: Chest pain, near syncope, and aortic stenosis Pt evaluation today including: conversation w/ patient, conversation w/ family , physical exam, chart review, lab review, review of studies, conversation w/ health consultant (Interventional cardiology), review of inpatient medication list, conversation w/ attending History of Present Illness Mr. Kan is a pleasant 86-year-old gentleman with multivessel CAD s/p CABG x 3 , aortic stenosis, dyslipidemia, peripheral arterial disease, and insulin- dependent diabetes (>30 yrs). He has had the following studies/procedures: 1. Stress echo 02/28/12: Positive for ischemia at 94% MPHR. LV dilated and systolic function declined after exercise. Anterior wall did not augment and the remainder of the LV became hypokinetic with the exception of the inferior base, which became dyskinetic. Negative ECG. 2. Echo 02/28/12: Normal LV size, systolic function. EF 60%. Inferior base is akinetic. Type I diastolic dysfunction. Mild (mean gradient 9 mmHg; JUAN PABLO 1.5 cm2). 3. Cardiac Catheterization 02/28/12: Significant multivessel CAD with calcifications noted in coronary arteries. Mid LAD 60% followed by another 50% stenosis. Mid circumflex 50%. OM1 lateral branches with 80% and 95% stenosis. Prox Raums 80%. Prox RCA 100%. L to R and R to R collaterals. LVEDP 12 mmHg. No significant . 4. CABG x3 on 05/02/12 [place] [facility] [place] SEN to LAD; SVG to ramus; SVG to OM. 5. Echo 07/07/12: Normal LV systolic function. Inferior akinesis. EF 55-60%. Mild LVH. Mild to moderate aortic stenosis (mean gradient 14.5 mmHg). 6. Echo 07/15/2015: Normal LV size and systolic function. EF 55-60%. Inferior base may be akinetic. Moderate LVH. Type 1 diastolic dysfunction. Moderate to severe aortic stenosis (JUAN PABLO 1 cm2; mean gradient 21; dimensionless index 0.25). 7. Lower extremity arterial duplex 08/31/2016: Right mid SFA, proximal popliteal, and distal popliteal 50-74% stenosis. Occluded right STOVE REFINISHER. Collaterals seen. Left FIELD HUMAN RESOURCES MANAGER and proximal SFA and mid SFA 50-74% left distal popliteal 75-99%. Occluded left STOVE REFINISHER, possibly very faint collateralized flow in distal PDA. 8. Echo 09/08/2016: Normal LV size and systolic function. EF 55-60%. Akinesis of the inferior base. Hypokinesis of the septal base. Moderate concentric LVH. Type 1 diastolic dysfunction. Moderate aortic stenosis (peak velocity 3.4; mean gradient 23; JUAN PABLO 1.1). No significant change from 2015. Cardiology was consulted today for concern of chest pain, near-syncope, and aortic stenosis. There is concern that he has been falling recently. He states that he has not fallen but has had near syncopal episodes with lightheadedness feeling as though he may pass out. He denies any actual loss of consciousness. Symptoms only occur while he is on his feet walking, but not necessarily with changing of positions. He also had a chest discomfort in his substernal area. When asked to further characterize he was unable to do so stating that it was only a pain. It did not radiate. There was associated shortness of breath however. Symptoms would resolve in approximately 15 minutes after resting. He has not had any rest pain. He has not had any further chest discomfort since hospitalization. As an outpatient in the past, he had been on beta-mathew therapy such as metoprolol but this was discontinued in 2013. There has been concerns in the past with orthostatic symptoms. He has also been leery on being on medication and has often ask in the past to have medications removed. His admits that he search is on-line for potential side effects.He also has been on pravastatin , atorvastatin in the past and did not tolerate these medications. He declined further statin therapy. Aortic stenosis was most recently evaluated in September of 2016 and was found to be moderate in severity with a mean gradient of 23mmHg, peak velocity of 3.4 m/ s , and aortic valve area of 1.1. He denies melena, hematochezia, hematuria, palpitations, syncope, edema, fever, abdominal pain, nausea, vomiting, or other symptoms. Although his was not present at the bedside, he was agreeable for her to be contacted via telephone. She stated that he has complained of 2 or 3 episodes of chest discomfort in the past 10 days or so the, with exertion. Review of systems: As above review of systems otherwise negative/unremarkable. Past Medical/Surgical History 1. CAD status post CABG x3 2. Aortic stenosis 3. Dyslipidemia 4. Peripheral arterial disease 5. Insulin-dependent diabetes 6. Carpal tunnel syndrome 7. Macular degeneration 8. Memory loss 9. Bladder cancer history 10. Polyneuropathy 11. Sleep apnea 12. Osteomyelitis following CABG 13. Status post cholecystectomy 14. Hip surgery 15. Cataract surgery 16. Knee and ankle surgery Family History No known premature CAD. Social History Smoking Status: Never Smoker History of Alcohol Use: Yes ("wine" 1-2 "small" glasses per week, socially) Denies tobacco, alcohol, or drug abuse. He is . He has children. He lives with his . 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 His daughter, Mary Anne, is a nurse who lives in [place]. He also has a local daughter. His was contacted via telephone as there were no family members at his bedside at the time of today's visit. Allergies Coded Allergies: Bacitracin (Verified Allergy, Intermediate, RASH, 07/09/17) Neomycin (Verified Allergy, Intermediate, RASH, 07/09/17) Polymyxin B (Verified Allergy, Intermediate, RASH, 07/09/17) Unclassified Drugs (Unverified Allergy, Unknown, TEGADERM-RASH BLISTERS, ) Doxycycline (Verified Adverse Reaction, Mild, GI SYMPTOMS, 07/09/17) Tamsulosin (Verified Adverse Reaction, Unknown, hypotension/syncope, ) Medications Current Inpatient Medications Medications (Trade) Dose Ordered Sig/Mildred Route Start Time Stop Time Status Last Admin Dose Admin Sodium Chloride 1,000 ml @ 100 mls/hr Q10H IV 07/09/17 01:04 08/08/17 01:03 07/09/17 02:37 100 MLS/HR Acetaminophen (Tylenol Tab) 650 mg Q4H PRN PO 07/09/17 01:15 08/08/17 01:14 Al Hydrox/Mg Hydrox/Simethicone (Maalox Max Susp) 15 ml Q4H PRN PO 07/09/17 01:15 08/08/17 01:14 Magnesium Hydroxide (Milk Of Magnesia Susp) 30 ml Q12H PRN PO 07/09/17 01:15 08/08/17 01:14 Zolpidem Tartrate (Ambien Tab) 5 mg HSZ PRN PO 07/09/17 01:15 08/08/17 01:14 Ondansetron HCl (Zofran Inj) 4 mg Q6H PRN IV 07/09/17 01:15 08/08/17 01:14 Nitroglycerin (Nitrostat Tab) 0.4 mg UD PRN SL 07/09/17 01:15 08/08/17 01:14 Nitroglycerin (Nitroglycerin 2% Oint) 1 inch Q6H EXT 07/09/17 03:00 08/08/17 02:59 07/09/17 10:52 1 INCH Morphine Sulfate (MoRPHine SULFATE INJ) 2 mg Q30M PRN IV 07/09/17 01:15 07/23/17 01:14 Polyethylene (Miralax Powder Packet) 17 gm DAILY PRN PO 07/09/17 01:15 08/08/17 01:14 Aspirin (Ecotrin Tab) 81 mg QAM PO 07/09/17 09:00 08/08/17 08:59 07/09/17 10:50 81 MG Finasteride (Proscar Tab) 5 mg QPM PO 07/09/17 21:00 08/08/17 20:59 Fluticasone Propionate (Flonase Nasal [place]) 1 sprays BID PRN FRANCIE 07/09/17 01:15 08/08/17 01:14 Insulin Human NPH (novoLIN-N NPH) 22 units BIDM SC 07/09/17 07:30 08/08/17 07:29 07/09/17 08:57 22 UNITS Cetirizine HCl (zyrTEC TAB) 10 mg DAILY PRN PO 07/09/17 01:15 08/08/17 01:14 Miscellaneous Information (Consult Glycemic Management Pharmacy) 1 ea UD PRN N/A 07/09/17 01:44 08/08/17 01:43 Miscellaneous (Iv Fluids Completed) 1 ea PRN PRN N/A 07/09/17 01:30 07/09/18 01:29 Insulin Aspart (novoLOG ASPART) SLIDING SCALE Q6 SC 07/09/17 06:00 08/08/17 05:59 Glucose (Glucose 40% Gel) 15-30 GRAMS 15 GRAMS... UD PRN PO 07/09/17 02:30 08/08/17 02:29 Glucose (Glucose Chew Tab) 4-8 Tablets 4 Tabl... UD PRN PO 07/09/17 02:30 08/08/17 02:29 Dextrose (Dextrose 50% 50ML Syringe) 25-50ML OF 50% DW IV FOR... UD PRN IV 07/09/17 02:30 08/08/17 02:29 Glucagon (Glucagon Inj) 1 mg UD PRN SQ 07/09/17 02:30 08/08/17 02:29 Heparin Sodium/ Dextrose 500 ml @ 29 mls/hr [id number] IV 07/09/17 08:30 08/08/17 08:29 07/09/17 08:56 29 MLS/HR Metoprolol Tartrate (Lopressor Tab) 12.5 mg BID PO 07/09/17 21:00 08/08/17 20:59 Physical Exam Vital Signs Past 12 Hours Date Time Temp Pulse Resp B/P (MAP) Pulse Ox O2 Delivery O2 Flow Rate FiO2 07/09/17 12:01 97 Room Air 07/09/17 11:29 36.7 66 16 106/53 (70) 97 Room Air 80 101/67 (78) 82 112/80 (91) 07/09/17 08:00 Room Air 07/09/17 07:08 36.7 70 20 123/68 (86) 97 Room Air 07/09/17 04:04 Room Air 07/09/17 03:33 36.7 75 18 111/64 (80) 97 Room Air 07/09/17 02:42 36.5 89 16 116/75 Room Air 07/09/17 01:47 97 07/09/17 01:38 87 18 167/94 93 Room Air Gen.: No acute distress. Alert. Oriented to self, place, and month. He did not know the year. HEENT: Anicteric sclera. Neck: No JVD. No audible bruit. Normal carotid upstrokes bilaterally. Cardiac: PMI was nondisplaced. No ventricular heave. Regular, without ectopy. Normal S1-S2. 2/6 mid-late peaking systolic ejection murmur best heard at the right upper sternal border. No rubs or gallops. Pulmonary: Crackles bilateral bases, otherwise clear. Abdomen: Soft, nontender, nondistended, with normoactive bowel sounds. No bruits noted. Extremities: 2+ radial pulses bilaterally. Weak posterior tibialis pulses bilaterally. No edema. No cyanosis. Psychiatric: Affect appears appropriate. Chest: Nontender to palpation. Data Laboratory Results: Last 24 Hours Test 07/08/17 23:30 07/08/17 23:50 07/09/17 02:09 07/09/17 05:59 White Blood Count 4.29 K/uL Red Blood Count 4.46 M/uL Hemoglobin 15.1 g/dL Hematocrit 42.9 % Mean Corpuscular Volume 96.2 fL Mean Corpuscular Hemoglobin 33.9 pg Mean Corpuscular Hemoglobin Concent 35.2 g/dl Platelet Count 149 K/uL Mean Platelet Volume 10.6 fL Neutrophils (%) (Auto) 51.9 % Lymphocytes (%) (Auto) 35.0 % Monocytes (%) (Auto) 9.8 % Eosinophils (%) (Auto) 2.3 % Basophils (%) (Auto) 0.5 % Neutrophils # (Auto) 2.23 K/uL Lymphocytes # (Auto) 1.50 K/uL Monocytes # (Auto) 0.42 K/uL Eosinophils # (Auto) 0.10 K/uL Basophils # (Auto) 0.02 K/uL RDW Standard Deviation 44.9 fL RDW Coefficient of Variation 12.9 % Immature Granulocyte % (Auto) 0.5 % Immature Granulocyte # (Auto) 0.02 K/uL Sodium Level 138 mmol/L Potassium Level 3.8 mmol/L Chloride Level 101 mmol/L Carbon Dioxide Level 27 mmol/L Anion Gap 9.0 mmol/L Blood Urea Nitrogen 24 mg/dl Creatinine 1.15 mg/dl Est Creatinine Clear Calc Drug Dose 54.0 ml/min Estimated GFR () 66.4 Estimated GFR (Non- 57.3 BUN/Creatinine Ratio 21.1 Random Glucose 158 mg/dl Calcium Level 8.8 mg/dl Total Bilirubin 0.5 mg/dl Aspartate Amino Transf (AST/SGOT) 18 U/L Alanine Aminotransferase (ALT/SGPT) 28 U/L Alkaline Phosphatase 94 U/L Total Creatine Kinase 161 U/L Creatine Kinase MB 4.6 ng/ml Creatine Kinase MB Ratio 2.9 Troponin I < 0.015 ng/ml Total Protein 7.7 gm/dl Albumin 3.9 gm/dl Globulin 3.8 gm/dl Albumin/Globulin Ratio 1.0 Bedside Glucose 138 mg/dl 168 mg/dl 190 mg/dl Test 07/09/17 07:02 07/09/17 08:30 07/09/17 09:05 Estimated Average Glucose 171 mg/dl Hemoglobin A1c 7.6 % Creatine Kinase MB 5.9 ng/ml Creatine Kinase MB Ratio Troponin I 0.636 ng/ml White Blood Count 4.54 K/uL Red Blood Count 3.85 M/uL Hemoglobin 13.0 g/dL Hematocrit 36.5 % Mean Corpuscular Volume 94.8 fL Mean Corpuscular Hemoglobin 33.8 pg Mean Corpuscular Hemoglobin Concent 35.6 g/dl RDW Standard Deviation 45.1 fL RDW Coefficient of Variation 13.1 % Platelet Count 125 K/uL Mean Platelet Volume 10.2 fL Prothrombin Time 10.7 SECONDS Prothromb Time International Ratio 1.0 Activated Partial Thromboplast Time 24.6 SECONDS Partial Thromboplastin Ratio 0.9 Bedside Glucose 182 mg/dl Telemetry personally reviewed. No arrhythmia. ECG personally reviewed. ECG 07/08/2017 sinus rhythm with first-degree AV block and PVCs at 87 bpm. Left axis deviation. Nonspecific ST/T-wave abnormality. ECG 07/10/2017: Sinus rhythm with first-degree AV block at 75 bpm. Left axis deviation. LVH. Nonspecific ST abnormality. Echo reports reviewed from previous echo. Chest x-ray image personally reviewed. Chest x-ray 07/08/2017: No infiltrate. No obvious CHF. As per Radiology: No acute process. Assessment & Plan ASSESSMENT/PLAN: 1. NSTEMI: Troponins are mildly elevated and he had chest discomfort with shortness of breath on exertion. Recommend echocardiogram which was ordered and will be reviewed by covering aircraft landing gear inspector at [facility] when available. We discussed potential treatment strategies. This included coronary angiography and risks and benefits were discussed with him in detail. They were also discussed with his via telephone. Other options, such as medical therapy, or also discussed with him. Unfortunately, he has not been very tolerant to medical therapy in the past. Will try metoprolol tartrate 12.5 mg twice daily. Orthostatic vitals were unremarkable today. Dr. Ellis followed up with patient and notified that he was agreeable to undergo cardiac catheterization. Patient's history and presentation were discussed with Dr. Richards of interventional Cardiology will be available to perform the procedure. Continue with NPO. He declined statin therapy in the past and continues to do so. Continue aspirin 81 mg daily. 2. Aortic stenosis: Moderate less than 1 year ago. Repeat echocardiogram is pending. 3. Near syncope: Etiology uncertain. Orthostatics were requested and are unremarkable. He has not had actual syncope. Symptoms that he may fall down could be related to his gait as well as this has declined over the few past years. Continue to monitor while initiating low-dose beta-mathew for concern of ischemic heart disease as playing a role in his chest discomfort and dyspnea. 4. CAD status post CABG: Continue aspirin. Initiating low-dose beta-mathew once again. He continues to decline statin therapy. Coronary angiography as above. 5. Dyslipidemia: He has declined in the past and continues to decline statin therapy. He has reported intolerance to pravastatin and atorvastatin in the past. He declined Crestor when offered. 6. Disposition: Cardiology will continue to follow. Patient care has been discussed with Dr. Engel primary Hospitalist team. Patient care has also been discussed with Dr. Richards (Interventional cardiology). Highly complex medical issues. Thank you for allowing me to participate in the care of your patient. Please call for any other questions or concerns. Sincerely, Gerald Dumont M.D.
--- NOTE | 2017-07-09 13:01 | ECHOCARDIOGRAM REPORT ---
*NOTICE TO RECEIVING DEMOCRAT AGENCY This information is strictly Confidential and protected under [place] law. [place] law prohibits you from making any further disclosure of this information unless further disclosure is expressly permitted by the written consent of the person to whom it pertains or is authorized by law. A general authorization for the release of medical or other information is not sufficient for this purpose. Hospital accepts no responsibility if the information is made available to any other person, INCLUDING THE PATIENT. Interpretation Summary * Name: RAISA VAZQUEZ Study Date: 07/09/2017 10:26 AM BP: 123/68 mmHg * Patient Location: C.2E\S\E202\S\1 HR: 68 * : 1930 (M/d/yyyy) Gender: Male Height: 71 in * Age: 86 yrs Ethnicity: [place] Weight: 202 lb * Ordering Physician: Dion Dumont * Referring Physician: Self, Referred * Performed By: Kim Ingram RDCS * * Reason For Study: AORTIC STENOSIS, ACUTE HI * BSA: 2.1 m2 * -- Conclusions -- * Left ventricular systolic function is normal. * Proximal inferior wall akinesis (thinned and echo dense). * Ejection Fraction = 55-60%. * There is mild concentric left ventricular hypertrophy. * Grade I diastolic dysfunction, (abnormal relaxation pattern). * Severe valvular aortic stenosis. * There is mild mitral regurgitation. * There is mild tricuspid regurgitation. Procedure Details * A contrast injection of Definity was performed to improve assessment of LV function. * Contrast was injected into an intravenous site in the left arm. * One vial of Definity ultrasound contrast was diluted in normal saline to a total volume of 10 ml. A total of '2' ml of solution was administered during imaging. * Lot # [id number] of Definity utilized for procedure. * Expiration date JUL 26. * The attending nurse who injected the contrast agent was NATASHA SHRESTHA. Left Ventricle * The left ventricle is normal in size. * There is mild concentric left ventricular hypertrophy. * Left ventricular systolic function is normal. * Ejection Fraction = 55-60%. * Proximal inferior wall akinesis (thinned and echo dense). Right Ventricle * The right ventricle is not well visualized. * The right ventricular systolic function is normal as assessed by tricuspid annular plane systolic excursion (TAPSE) (normal >1.5 cm). Atria * The left atrium is mildly dilated. * Right atrium not well visualized. * There is no evidence of atrial septal defect, but resolution does not allow assessment for a patent foramen ovale. Mitral Valve * The mitral valve anatomy is normal. * There is no mitral valve stenosis. * There is mild mitral regurgitation. Tricuspid Valve * The tricuspid valve anatomy is normal. * There is no tricuspid stenosis. * There is mild tricuspid regurgitation. Aortic Valve * Calcified aortic valve. * Severe valvular aortic stenosis. * Aortic valve area was calculated at 0.59 cm\S\2 using the continuity equation. * There is no significant aortic regurgitation. Pulmonic Valve * The pulmonary valve is not well seen, but the Doppler examination is normal without significant regurgitation or stenosis. Great Vessels * The aortic root is normal size. * The pulmonary is not well visualized. Pericardium/Pleural * There is no pericardial effusion. Great Vessels * IVC not well seen. Left Ventricular Diastolic Function * Grade I diastolic dysfunction, (abnormal relaxation pattern). MMode 2D Measurements and Calculations IVSd 1.5 cm IVSs 2.3 cm LVIDd 4.3 cm LVIDs 3.2 cm LVPWd 1.3 cm LVPWs 1.7 cm IVS/LVPW 1.2 FS 24.5 % EDV(Teich) 82.8 ml ESV(Teich) 42.2 ml EF(Teich) 49.0 % EDV(cubed) 79.2 ml ESV(cubed) 34.0 ml EF(cubed) 57.0 % % IVS thick 54.9 % % LVPW thick 27.1 % LV mass(C)d 232.9 grams LV mass(C)dI 110.0 grams/m\S\2 LV mass(C)s 286.5 grams LV mass(C)sI 135.3 grams/m\S\2 SV(Teich) 40.6 ml SI(Teich) 19.2 ml/m\S\2 SV(cubed) 45.2 ml SI(cubed) 21.3 ml/m\S\2 Ao root diam 3.7 cm Ao root area 10.6 cm\S\2 LA dimension 3.1 cm LA/Ao 0.83 LVOT diam 2.0 cm LVOT area 3.0 cm\S\2 LVAd ap4 34.7 cm\S\2 LVLd ap4 8.8 cm EDV(MOD-sp4) 110.0 ml EDV(sp4-el) 115.3 ml LVAs ap4 22.9 cm\S\2 LVLs ap4 7.7 cm ESV(MOD-sp4) 59.4 ml ESV(sp4-el) 57.3 ml EF(MOD-sp4) 46.0 % EF(sp4-el) 50.3 % LVAd ap2 37.8 cm\S\2 LVLd ap2 8.3 cm EDV(MOD-sp2) 139.5 ml EDV(sp2-el) 145.1 ml LVAs ap2 24.0 cm\S\2 LVLs ap2 7.3 cm ESV(MOD-sp2) 64.7 ml ESV(sp2-el) 67.5 ml EF(MOD-sp2) 53.6 % EF(sp2-el) 53.5 % LVLd %diff -6.15 % EDV(MOD-bp) 128.2 ml LVLs %diff -6.80 % ESV(MOD-bp) 63.0 ml EF(MOD-bp) 50.9 % SV(MOD-sp4) 50.6 ml SI(MOD-sp4) 23.9 ml/m\S\2 SV(MOD-sp2) 74.8 ml SI(MOD-sp2) 35.3 ml/m\S\2 SV(MOD-bp) 65.3 ml SI(MOD-bp) 30.8 ml/m\S\2 SV(sp4-el) 58.0 ml SI(sp4-el) 27.4 ml/m\S\2 SV(sp2-el) 77.7 ml SI(sp2-el) 36.7 ml/m\S\2 Doppler Measurements and Calculations MV E max aaron 90.6 cm/sec MV A max aaron 138.9 cm/sec MV E/A 0.65 MV dec time 0.23 sec Ao V2 max 331.2 cm/sec Ao max PG 44.0 mmHg Ao max PG (full) 42.4 mmHg Ao V2 mean 243.1 cm/sec Ao mean PG 26.2 mmHg Ao mean PG (full) 25.2 mmHg Ao V2 VTI 82.6 cm JUAN PABLO(I,A) 0.64 cm\S\2 JUAN PABLO(I,D) 0.64 cm\S\2 JUAN PABLO(V,A) 0.59 cm\S\2 JUAN PABLO(V,D) 0.59 cm\S\2 LV V1 max PG 1.7 mmHg LV V1 mean PG 1.0 mmHg LV V1 max 64.3 cm/sec LV V1 mean 49.0 cm/sec LV V1 VTI 17.4 cm SV(Ao) 876.3 ml SI(Ao) 413.8 ml/m\S\2 SV(LVOT) 52.7 ml SI(LVOT) 24.9 ml/m\S\2
[2017-07-09] MEDS ORDERED: LIDOCAINE HCL 1% 20 ML VIAL ONE (13:03)
--- NOTE | 2017-07-09 14:38 | Pre Sedation Assessment ---
Pre Sedation Assessment General Date of Sedation: Jul 09, 2017. Vital Signs Past 12 Hours Date Time Temp Pulse Resp B/P (MAP) Pulse Ox O2 Delivery O2 Flow Rate FiO2 07/09/17 14:30 64 16 123/77 (92) 96 Room Air 07/09/17 14:15 62 16 121/70 (87) 99 Mask 3 07/09/17 12:01 97 Room Air 07/09/17 11:29 36.7 66 16 106/53 (70) 97 Room Air 80 101/67 (78) 82 112/80 (91) 07/09/17 08:00 Room Air 07/09/17 07:08 36.7 70 20 123/68 (86) 97 Room Air 07/09/17 04:04 Room Air 07/09/17 03:33 36.7 75 18 111/64 (80) 97 Room Air 07/09/17 02:42 36.5 89 16 116/75 Room Air Review Cardiovascular: regular rate, rhythm, no edema Lungs: chest non-tender, lungs clear Pre-Sedation Airway Assessment Smoking Status: Never Smoker Hx of Sleep Apnea: No Hx of difficult intubation: No Short Thick Neck: No Thyro-mental Distance: > 3 Finger Breadths Oral Cavity: WNL Mallampati Classification: Class II ASA Classification: Class II NPO Status Date of Last Intake of Fluids: Jul 08, 2017 Time of Last Intake of Fluids: 2099 Date of Last Intake of Solids: Jul 08, 2017 Time of Last Intake of Solids: 2099 Procedure Planning Contraindications for Sedation: None Current Medications Reviewed: Yes Notes The planned sedation has been discussed with the patient. Informed Consent was obtained. I have identified the patient, determined the appropriateness of sedation and have assessed the patient immediately prior to the procedure. All medicine(s) and interventions are by my order.
--- NOTE | 2017-07-09 14:38 | Post Sedation Assessment ---
Post Sedation Assessment General Date of Sedation Jul 09, 2017. Vital Signs: Vital Signs Past 12 Hours Date Time Temp Pulse Resp B/P (MAP) Pulse Ox O2 Delivery O2 Flow Rate FiO2 07/09/17 14:30 64 16 123/77 (92) 96 Room Air 07/09/17 14:15 62 16 121/70 (87) 99 Mask 3 07/09/17 12:01 97 Room Air 07/09/17 11:29 36.7 66 16 106/53 (70) 97 Room Air 80 101/67 (78) 82 112/80 (91) 07/09/17 08:00 Room Air 07/09/17 07:08 36.7 70 20 123/68 (86) 97 Room Air 07/09/17 04:04 Room Air 07/09/17 03:33 36.7 75 18 111/64 (80) 97 Room Air 07/09/17 02:42 36.5 89 16 116/75 Room Air Post Procedure Recovery Score Activity: (2) Moves 4 extremities * Respiration: (2) Deep breath/cough Circulation: (2) +/-20% PreAnes Value Consciousness: (2) Fully Awake Oxygen Saturation: (2) > 92% On Room Air Post Anesthesia Score: 10 Discharge Sedation Level of Care: Fast Track Phase II Post Sedation Plan On clinical assessment, the patient appears to have tolerated the sedation without complications. Patient is recovering as anticipated. Patient will continue to be monitored by nursing and may be discharged when sedation discharge criteria are met per below protocol. Upon Completions of procedure and additional 15 minutes continue every 5 minute vital signs and the P.A.R. score; then discharge to a Phase I or Fast Track to Phase II per the following guidelines: * Discharge Patient to appropriate Phase II area if PAR is 8 or greater or return to pre- procedure baseline. The post - procedure orders will be as directed. * If PAR score is less than 8 or not return to pre-procedure baseline then patient will follow Phase I monitoring till PAR is reached for Phase II. The Phase I may be done in procedure room or may call to secure a Phase I area. * If naloxone or flumazenil are used for reversal, hold in Phase I for an additional 60 -120 minutes before discharge to Phase II. Please call the Sedation Physician to re-evaluate and complete post-note for discharge to Phase II area. Do NOT discharge from procedure sedation or Phase 1 until post- sedation evaluation note is complete by procedure /sedation MD Sedation Discharge Instructions to be given to the patient at discharge to home.
--- NOTE | 2017-07-09 14:57 | Cardiac Catheterization ---
Procedure Note Procedure Date Jul 09, 2017. Pre-Procedure Diagnosis Non STEMI AUC Score 7 Post-Procedure Diagnosis Severe CAD, Normal Intracardiac Pressures Procedure(s) Performed Coronary Angiography, Left Heart Cath, Ultrasound Guided Vascular Access, Femoral Artery Angiography Offline Cutter Maurice Coin Collector(s) Lor Estimated Blood Loss 15 Medication(s) Fentanyl, Versed, Lidocaine 1% Summary of Findings Indication: NSTEMI Access: 6Fr right BOX NAILER (ultrasound guided access) Catheters: JL4, JR4; AL1, [place] Findings: LM - Calcified, 90% diffuse disease LAD - Severe, diffuse, calcified proximal disease with 90% stenosis at take-off of 1st diagonal. Distal diffuse 40-50% disease - 95% ostial 1st diagonal stenosis Circumflex - Mild proximal disease, 50-60% mid segment disease at take-off of diffusely diseased OM2. - proximally occluded ramus, OM1 RCA - Chronically occluded proximally. RV branch fills via left to right collaterals from SVG-OM SVG-OM - Widely Patent SVG-Ramus - Widely Patent SNE-1st Diagonal - Widely patent; minimal retrograde filling to LAD LVEDP - 13 Ao Valve mean gradient: 23 mmHg Arterial Closure: Mynx Summary: 1. 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 Patent bypass grafts (SVG-Ramus, SVG-OM, SEN-1st Diagonal) 3. Moderate aortic stenosis (MG 23 mmHg). Normal intracardiac filling pressure Recommendations: LAD disease not bypassed and gets minimal retrograde filling from diagonal. Suspect LAD likely culprit for recent symptoms. LM/LAD heavily calcified making PCI higher risk procedure. Patient on no antianginal therapy and recommend trial of maximal medical therapy first. If in the future continues to have refractory angina despite medical therapy then would consider PCI to LAD Continued ASCVD risk factor modification, anti-anginal therapy per Dr. Dumont Hemodynamics Rest Ao: 97/43/64 Final Ao: 116/48/76 LV: 130/13 Recommendations Medical therapy and/or Counseling Specimens None Radiation Exposure (mGy) 3361 Contrast (mls) 105 Fluids (cc crystalloids) 125 Drains none Anesthesia moderate Procedural Complication(s) None Disposition PCU ACC Data Cardiac Status Clinical evaluation leading to the procedure CAD Presntation: Non STEMI Anginal Classification: CCS IV Heart Failure: NYHA Class: CCS I Cardiogenic Shock w/in 24Hrs: No Cardiac Arrest w/in 24Hrs: No Imaging studies past 6 months: Yes Stress studies past 6 months: No Closure Device Percutaneous Entry Location: Femoral Closure Device: Mynx Recommendations: Medical therapy and/or Counseling Intraprocedure Events Significant Dissection: No Perforation: No
--- NOTE | 2017-07-09 15:03 | Pharmacy Progress Note ---
Glycemic Control Intl Consult Date of Service Jul 09, 2017. Scope Glycemic Pharmacist consulted by Dr Day on 07/09 for glycemic control and to write orders per [facility] inpatient glycemic control protocol Objective Weight (Kilograms): 91.900 Accuchecks BSG (last 24hrs): Test 07/08/17 23:30 07/08/17 23:50 07/09/17 02:09 07/09/17 05:59 Random Glucose 158 mg/dl (70-99) Bedside Glucose 138 mg/dl (70-99) 168 mg/dl (70-99) 190 mg/dl (70-99) Test 07/09/17 09:05 Bedside Glucose 182 mg/dl (70-99) Laboratory Data (last 24hrs) Test 07/08/17 23:30 07/09/17 07:02 07/09/17 08:30 Anion Gap 9.0 mmol/L BUN/Creatinine Ratio 21.1 Blood Urea Nitrogen 24 mg/dl Creatinine 1.15 mg/dl Potassium Level 3.8 mmol/L Sodium Level 138 mmol/L White Blood Count 4.29 K/uL 4.54 K/uL Red Blood Count 4.46 M/uL Hemoglobin 15.1 g/dL Hematocrit 42.9 % Mean Corpuscular Volume 96.2 fL Mean Corpuscular Hemoglobin 33.9 pg Mean Corpuscular Hemoglobin Concent 35.2 g/dl Platelet Count 149 K/uL Mean Platelet Volume 10.6 fL Neutrophils (%) (Auto) 51.9 % Lymphocytes (%) (Auto) 35.0 % Monocytes (%) (Auto) 9.8 % Eosinophils (%) (Auto) 2.3 % Basophils (%) (Auto) 0.5 % Neutrophils # (Auto) 2.23 K/uL Lymphocytes # (Auto) 1.50 K/uL Monocytes # (Auto) 0.42 K/uL Eosinophils # (Auto) 0.10 K/uL Basophils # (Auto) 0.02 K/uL Hemoglobin A1c 7.6 % HbA1c Test 07/09/17 07:02 Hemoglobin A1c 7.6 % (4.5-5.6) H Recent Pertinent Medications Outpatient Anti-diabetic Regimen: * novolog 70/30 45 units AM, 40 units PM * A1c = 7.4 % 07/09/17 Risk Factors for Insulin Resistance: * Steroids: * Infection: * Pressors: * IVF: * Recent Surgery * Diet: * Mechanical Ventilation: Assessment & Plan ASSESSMENT: * Patient presenting after a syncopal event and possible NSTEMI. Patient refused correctional novolog this morning and remains NPO for electroplating laborer. Nurse was unable to assess a lunch BSG as the patient was in the electroplating laborer for procedure. Will continue with the plan for ~ 50% of home basal requirements until further BSG data is available. PLAN FOR INPATIENT GLYCEMIC CONTROL: * Basal insulin with NPH 22 units SQ BID * Correctional Insulin with NOVOLOG per scale ACHS * Goal Range: Low 120 mg/dL - High 160 mg/dL * Correction Factor: 20 mg/dL/unit * Nutritional / Prandial insulin per carb ratio of 1 unit per 7 grams CHO consumed * Please note that the plan above was derived based on current level of insulin resistance and hospital stress. These recommendations are appropriate for inpatient admission only. Plan of care upon discharge will need to be reassessed to avoid potential outpatient hypo/hyperglycemia. Thank you.
[2017-07-09] MEDS ORDERED: SODIUM CHLORIDE 0.9% 1000ML 1,000 ML IV SCH (15:15)
[2017-07-09 15:22] LABS: PTT PATIENT 25.9 SECONDS (21.0-31.0)
[2017-07-09 15:38] LABS: CKMB 5.8 ng/ml (0.5-3.6)
[2017-07-09] MEDS ORDERED: NURSING VERBAL MED ORDER ONE (17:45)
[2017-07-09] MEDS: METOPROLOL TARTRATE 25 MG TAB PO SCH (20:48)
[2017-07-09] MEDS: FINASTERIDE 5 MG TAB PO SCH (20:49)
[2017-07-09] MEDS ORDERED: INSULIN 70% ASPART PROTAMINE/30% ASPART SC SCH (21:00)
[2017-07-09 21:01] LABS: CKMB 5.8 ng/ml (0.5-3.6)
[2017-07-10] VITALS (24 sets, daily range): BP systolic 90–139; BP diastolic 52–86; PULSE 66–100; TEMP 36.6–37.3; O2SAT 94–100
[2017-07-10] MEDS: HEPARIN 25,000 UNIT/500ML D5W 500 ML IV SCH (00:50)
[2017-07-10] MEDS: NITROGLYCERIN 2% OINTMENT 30GM TUBE EXT SCH ×4 (03:14→21:36)
[2017-07-10 05:56] LABS: BASO % 0.5 %; BASO ABS # 0.02 K/uL (0-0.2); EOS % 4.5 %; EOS ABS # 0.17 K/uL (0-0.5); HEMATOCRIT 33.9 % (42-52); IG# 0.02 K/uL (0.00-0.02); LYMPH ABS # 1.37 K/uL (1.2-3.4); MEAN CELL VOLUME 95.5 fL (80-100); MEAN CORPUSCULAR HEMOGLOBIN 33.8 pg (25-34); MEAN CORPUSCULAR HGB CONC 35.4 g/dl (32-36); MEAN PLATELET VOLUME 10.3 fL (7.4-10.4); MONO % 14.7 %; MONO ABS # 0.56 K/uL (0.11-0.59); NEUT % 43.8 %; NEUT ABS # 1.67 K/uL (1.4-6.5); PLATELET COUNT 118 K/uL (130-400); RED CELL DISTRIBUTION WIDTH CV 13.1 % (11.5-14.5); RED CELL DISTRIBUTION WIDTH SD 45.9 fL (36.4-46.3); WHITE BLOOD COUNT 3.81 K/uL (4.8-10.8)
[2017-07-10 06:09] LABS: PTT PATIENT 25.7 SECONDS (21.0-31.0)
[2017-07-10 06:31] LABS: CREATININE 0.88 mg/dl (0.60-1.40); POTASSIUM 4.1 mmol/L (3.5-5.1)
[2017-07-10] MEDS: INSULIN HUMAN NPH SC SCH ×3 (07:30→16:45)
[2017-07-10] MEDS: ASPIRIN 81 MG ECTAB PO SCH (08:13)
[2017-07-10] MEDS: METOPROLOL TARTRATE 25 MG TAB PO SCH ×2 (08:14→21:39)
[2017-07-10] MEDS: INSULIN ASPART 100 UNITS/ML 3 ML PEN SC SCH ×4 (08:19→21:40)
[2017-07-10] MEDS: SODIUM CHLORIDE 0.9% 1000ML 1,000 ML IV SCH (08:22)
--- NOTE | 2017-07-10 09:24 | Family Medicine Progress Note ---
Progress Note Date of Service Jul 10, 2017. Subjective Pt evaluation today including: conversation w/ patient, physical exam, chart review, lab review, review of studies, review of inpatient medication list Pain: denies PO Intake: npo Voiding: no voiding problems Constitutional: No fever, No weakness, No fatigue Respiratory: No cough, No shortness of breath Cardiovascular: No chest pain, No edema, No palpitations Abdomen: No pain, No nausea, No vomiting Male : No dysuria, No urinary frequency Skin: No rash, No itch Medications Current Inpatient Medications Medications (Trade) Dose Ordered Sig/Mildred Route Start Time Stop Time Status Last Admin Dose Admin Sodium Chloride 1,000 ml @ 100 mls/hr Q10H IV 07/09/17 01:04 08/08/17 01:03 07/10/17 08:22 100 MLS/HR Acetaminophen (Tylenol Tab) 650 mg Q4H PRN PO 07/09/17 01:15 08/08/17 01:14 07/09/17 20:50 650 MG Al Hydrox/Mg Hydrox/Simethicone (Maalox Max Susp) 15 ml Q4H PRN PO 07/09/17 01:15 08/08/17 01:14 Magnesium Hydroxide (Milk Of Magnesia Susp) 30 ml Q12H PRN PO 07/09/17 01:15 08/08/17 01:14 Zolpidem Tartrate (Ambien Tab) 5 mg HSZ PRN PO 07/09/17 01:15 08/08/17 01:14 Ondansetron HCl (Zofran Inj) 4 mg Q6H PRN IV 07/09/17 01:15 08/08/17 01:14 Nitroglycerin (Nitrostat Tab) 0.4 mg UD PRN SL 07/09/17 01:15 08/08/17 01:14 Nitroglycerin (Nitroglycerin 2% Oint) 1 inch Q6H EXT 07/09/17 03:00 08/08/17 02:59 07/10/17 03:14 1 INCH Morphine Sulfate (MoRPHine SULFATE INJ) 2 mg Q30M PRN IV 07/09/17 01:15 07/23/17 01:14 Polyethylene (Miralax Powder Packet) 17 gm DAILY PRN PO 07/09/17 01:15 08/08/17 01:14 Aspirin (Ecotrin Tab) 81 mg QAM PO 07/09/17 09:00 08/08/17 08:59 07/10/17 08:13 81 MG Finasteride (Proscar Tab) 5 mg QPM PO 07/09/17 21:00 08/08/17 20:59 07/09/17 20:49 5 MG Fluticasone Propionate (Flonase Nasal [place]) 1 sprays BID PRN FRANCIE 07/09/17 01:15 08/08/17 01:14 Insulin Human NPH (novoLIN-N NPH) 22 units BIDM SC 07/09/17 07:30 08/08/17 07:29 07/10/17 08:16 22 UNITS Cetirizine HCl (zyrTEC TAB) 10 mg DAILY PRN PO 07/09/17 01:15 08/08/17 01:14 Miscellaneous Information (Consult Glycemic Management Pharmacy) 1 ea UD PRN N/A 07/09/17 01:44 08/08/17 01:43 Miscellaneous (Iv Fluids Completed) 1 ea PRN PRN N/A 07/09/17 01:30 07/09/18 01:29 Glucose (Glucose 40% Gel) 15-30 GRAMS 15 GRAMS... UD PRN PO 07/09/17 02:30 08/08/17 02:29 Glucose (Glucose Chew Tab) 4-8 Tablets 4 Tabl... UD PRN PO 07/09/17 02:30 08/08/17 02:29 Dextrose (Dextrose 50% 50ML Syringe) 25-50ML OF 50% DW IV FOR... UD PRN IV 07/09/17 02:30 08/08/17 02:29 Glucagon (Glucagon Inj) 1 mg UD PRN SQ 07/09/17 02:30 08/08/17 02:29 Heparin Sodium/ Dextrose 500 ml @ 29 mls/hr [id number] IV 07/09/17 08:30 08/08/17 08:29 07/09/17 08:56 29 MLS/HR Metoprolol Tartrate (Lopressor Tab) 12.5 mg BID PO 07/09/17 21:00 08/08/17 20:59 07/10/17 08:14 12.5 MG Insulin Aspart (novoLOG ASPART) SLIDING SCALE ACHS SC 07/09/17 21:00 08/08/17 20:59 07/10/17 08:19 18 UNITS Objective Vital Signs Date Time Temp Pulse Resp B/P (MAP) Pulse Ox O2 Delivery O2 Flow Rate FiO2 07/10/17 08:24 36.8 77 20 104/52 (69) 96 07/10/17 08:00 98 CPAP 2.0 07/10/17 04:00 98 CPAP 07/10/17 03:13 36.8 66 20 110/61 (77) 98 CPAP 07/09/17 23:59 96 CPAP 07/09/17 23:11 36.8 60 19 93/54 (67) 96 CPAP 07/09/17 21:22 63 20 109/61 (77) 96 Room Air 07/09/17 20:22 36.5 20 136/71 (92) 96 Room Air 07/09/17 20:00 98 Room Air 07/09/17 19:00 64 20 125/62 (83) 99 Room Air 07/09/17 18:01 68 19 136/64 (88) 99 07/09/17 17:01 64 17 109/60 (76) 98 Room Air 07/09/17 16:00 99 Room Air 07/09/17 16:00 57 19 116/59 (78) 99 Room Air 07/09/17 15:30 57 18 109/64 (79) 99 07/09/17 15:15 59 18 117/62 (80) 100 07/09/17 15:00 60 17 132/ (44) 100 Room Air 07/09/17 14:54 60 17 114/ (38) 100 Room Air 07/09/17 14:45 60 17 102/62 (75) 100 Room Air 07/09/17 14:30 64 16 123/77 (92) 96 Room Air 07/09/17 14:15 62 16 121/70 (87) 99 Mask 3 07/09/17 12:01 97 Room Air 07/09/17 11:29 36.7 66 16 106/53 (70) 97 Room Air 80 101/67 (78) 82 112/80 (91) Physical Exam Notes: General Appearance: WD/WN, no apparent distress Eyes: PERRL, EOMI Neck: supple, no adenopathy Respiratory/Chest: lungs clear, normal breath sounds, no respiratory distress Cardiovascular: regular rate, rhythm, no edema, + systolic murmur Abdomen: normal bowel sounds, non tender, soft Extremities: non-tender, normal inspection, no pedal edema Neurologic/Psychiatric: alert, normal mood/affect, oriented x 3 Skin: normal color, no rash Laboratory Results Results Past 24 Hours Test 07/09/17 13:04 07/09/17 15:02 07/09/17 15:43 07/09/17 18:59 Range/Units Creatine Kinase MB Ratio 0-3.0 Activated Partial Thromboplast Time 25.9 21.0-31.0 SECONDS Partial Thromboplastin Ratio 1.0 Creatine Kinase MB 5.8 5.8 0.5-3.6 ng/ml Troponin I 0.596 0.441 0-0.045 ng/ml Bedside Glucose 93 70-99 mg/dl Test 07/09/17 20:47 07/10/17 01:17 07/10/17 05:25 07/10/17 06:47 Range/Units Bedside Glucose 107 146 70-99 mg/dl Troponin I 0.445 0-0.045 ng/ml White Blood Count 3.81 4.8-10.8 K/uL Red Blood Count 3.55 4.7-6.1 M/uL Hemoglobin 12.0 14.0-18.0 g/dL Hematocrit 33.9 42-52 % Mean Corpuscular Volume 95.5 80-100 fL Mean Corpuscular Hemoglobin 33.8 25-34 pg Mean Corpuscular Hemoglobin Concent 35.4 32-36 g/dl Platelet Count 118 130-400 K/uL Mean Platelet Volume 10.3 7.4-10.4 fL Neutrophils (%) (Auto) 43.8 % Lymphocytes (%) (Auto) 36.0 % Monocytes (%) (Auto) 14.7 % Eosinophils (%) (Auto) 4.5 % Basophils (%) (Auto) 0.5 % Neutrophils # (Auto) 1.67 1.4-6.5 K/uL Lymphocytes # (Auto) 1.37 1.2-3.4 K/uL Monocytes # (Auto) 0.56 0.11-0.59 K/uL Eosinophils # (Auto) 0.17 0-0.5 K/uL Basophils # (Auto) 0.02 0-0.2 K/uL RDW Standard Deviation 45.9 36.4-46.3 fL RDW Coefficient of Variation 13.1 11.5-14.5 % Immature Granulocyte % (Auto) 0.5 % Immature Granulocyte # (Auto) 0.02 0.00-0.02 K/uL Activated Partial Thromboplast Time 25.7 21.0-31.0 SECONDS Partial Thromboplastin Ratio 1.0 Sodium Level 139 136-145 mmol/L Potassium Level 4.1 3.5-5.1 mmol/L Chloride Level 109 98-107 mmol/L Carbon Dioxide Level 22 21-32 mmol/L Anion Gap 8.0 3-11 mmol/L Blood Urea Nitrogen 20 7-18 mg/dl Creatinine 0.88 0.60-1.40 mg/dl Est Creatinine Clear Calc Drug Dose 69.7 ml/min Estimated GFR () 90.1 Estimated GFR (Non- 77.8 BUN/Creatinine Ratio 22.5 10-20 Random Glucose 126 70-99 mg/dl Calcium Level 8.0 8.5-10.1 mg/dl Microbiology Results 07/09/17 MRSA DNA Surveillance Screen - Final, Complete Specimen Negative for MRSA by DNA Probe Assessment and Plan 86M with a PMHx of CABG, Moderate Aortic Stenosis ( per ECHO in 2012), DM2 s/p R Toe Amputation & CLINT p/w history of multiple near syncopal events. Initial EKG s, CKMB was elevated, second troponin elevated Near Syncope Chest pain secondary to A.S vs ACS pre syncope likely secondary to A.S. Last Echocardiogram( 2012) mild to moderate . Echo (07/09) Left ventricular systolic function is normal. Proximal inferior wall akinesis (thinned and echo dense). Ejection Fraction = 55-60%. There is mild concentric left ventricular hypertrophy. Grade I diastolic dysfunction, (abnormal relaxation pattern). Severe valvular aortic stenosis. There is mild mitral regurgitation. There is mild tricuspid regurgitation. 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 Normal intracardiac filling pressure Medical management based on degree of calcification making PCI higher risk Daily ASA. Start Statin (after discussion with patient, discussed benefit of Lipitor of Crestor however based on previous side effect he declined) - patient was amenable to Pravastatin which was started with the idea of upgrading to high intensity statin outpatient if tolerable DM2 HBA1C was 7.4 in February 2017. Continue current Novolog Regimen. Glycemic Control Consult. CLINT: CPAP. DVT Proph: SCDs Diet: NPO + IVF of NSS @ 125mls/hr. Resident Physician Supervision Note: I interviewed and examined the patient. Discussed with Dr. Higgins and agree with findings and plan as documented in the note. Any exceptions or clarifications are listed here: None Documented By: Danny Ellis pt seen three discrete times today -in AM seen ~45mins face to face discussing med management, supply/demand balance w [place], f/u etc. answered all questions of pt//son - extensive discussion. plan at that point was home as long as he was able to ambulate OK ~2p responded to code purple - pt had been ambulating prior to discharge - got pale sweaty and staring blankly - then felt nauseated. back in bed, felt better. vitals stable but diaphoretic. EKG nonacute at that time. repeat troponin ordered, discharge cancelled -- d/w pt and strongly suspect angina -- at this point too low of a threshold to cause angina to be able to be safely home - will keep inpt and work on optimizing med management as best as possible, but clearly can't go home w angina at this low of a threshold. ~ 20mins face to face critical care time ~430p - re-called similar episode, this time just sitting up in bed - pale/ diaphoretic and CP. nursing got stat EKG different from baseline - laid him back in bed pain went away - repeat EKG back to baseline. vitals stable. d/w cardiology who will be taking pt stat to bolt labeler. re-discussed with family explaining that while stent was not done initially because med management, if successful, would be best balance of risk/benefit - his current situation (that of showing angina with as little as a short walk in the west or even sitting up in bed, combined with very little "room to work with" as far as medications due to his baseline lower-end BP and HR) makes it such that the whole risk/benefit balance has shifted to where reducing demand clearly is not going to stabilize his situation and supply has to be addressed. they expressed understanding - pt stat to bolt labeler w Dr Richards. ~30 mins face to face critical care time Resident Tracking Resident Involvement: Resident Care Provided Care Provided: Adult Hospital Medicine
[2017-07-10] MEDS ORDERED: LPR25 PO (10:15)
[2017-07-10] MEDS ORDERED: PRAV20TA PO (10:15)
--- NOTE | 2017-07-10 10:24 | Discharge Instructions ---
Discharge Instructions Date of Service Jul 10, 2017. Admission Reason for Admission: Chest Pain, Near Syncope Discharge Discharge Diagnosis / Problem: Chest pain, Syncope Discharge Goals Goal(s): Decrease discomfort, Improve function, Increase independence, Improve disease control, Improve nutritional status, Learn about illness, Diagnostic testing, Screening, Prevent Disease Progression Activity Recommendations Activity Limitations: as noted below Lifting Limitations: gradually increase as tolerated Exercise/Sports Limitations: gradually increase as tolerated May Resume Sexual Activity: when tolerated Shower/Bathe: no limitations Driving or Machine Use: no limitations . Instructions / Follow-Up Instructions / Follow-Up Mr. Kan, Melchor were admitted for episodes of light headed ness and chest pain. Your cardiac enzymes were elevated. You underwent a catheterization that showed significant clogging of your arteries. At this time, surgical intervention is not recommended. We have discussed the need for medications to control your symptoms. You will need to be aspirin, metoprolol and a cholesterol medicine called pravastatin. We have chosen pravastatin due to it's low side effect profile. Ideally, you would be on a stronger cholesterol medicine. This can later be explored with your family doctor or snowboard designer. Please follow up with your PCP within 3-5 days. If you experience any chest pain, dizziness, shortness of breath or other concerns, please come back to the ER. Thank you for allowing us to participate in your care. Current Hospital Diet Patient's current hospital diet: Diabetes Type 2 Diet, AHA Diet (Heart Healthy) Discharge Diet Recommended Diet: Diabetes Type 2 Diet Pending Studies Studies pending at discharge: no Laboratory Results Hemoglobin A1c Test 07/09/17 07:02 Range/Units Estimated Average Glucose 171 mg/dl Hemoglobin A1c 7.6 H 4.5-5.6 % Medical Emergencies . Who to Call and When: Medical Emergencies: If at any time you feel your situation is an emergency, please call 911 immediately. . Non-Emergent Contact Non-Emergency issues call your: Primary Care Provider, Plant Puller Call Non-Emergent contact if: your pain is not controlled, your pain is worsening, your pain is unusual for you, your pain is concerning you . . "Provider Documentation" section prepared by Sigrid Zacarias. .
--- NOTE | 2017-07-10 12:44 | CARDIOLOGY PROGRESS NOTE ---
DATE: 07/10/2017 SUBJECTIVE: Mr. Kan is resting comfortably in bed without complaints of chest pain, dyspnea, syncope, or presyncope. He has ambulated within the room without difficulty. He is anxious for hospital discharge. Results of his cardiac catheterization reviewed in detail. OBJECTIVE: VITAL SIGNS: Blood pressure is 115/66 with a regular pulse of 74. Respiratory rate is 18. The patient is afebrile at 36.6 degrees Celsius. Saturation is 96% on 2 liters nasal cannula. NECK: Supple with delayed and prolonged carotid upstrokes. No bruit or transmitted murmur. CARDIOVASCULAR: Reveals a regular rhythm with a 2/6 crescendo decrescendo systolic murmur heard loudest at the base. S2 is not audible at the apex. LUNGS: Clear without rales, rhonchi, or wheezes. ABDOMEN: Soft and nontender without bruits. EXTREMITIES: Reveal intact radial artery pulses bilaterally. There is no peripheral edema. LABORATORY DATA: CBC notes hemoglobin of 12.0, hematocrit 33.9, white count 3.81, and platelet count 118,000. Electrolytes note a sodium of 139, potassium 4.1, chloride 109, bicarbonate 22, BUN 20, creatinine 0.88, and glucose 126. Troponin is stable at 0.445. shelter monitor notes sinus rhythm with occasional PVCs. Echocardiogram notes normal left ventricular systolic function with a proximal inferior wall motion abnormality. There is mild LVH and evidence of severe aortic stenosis. Cardiac catheterization notes severe multivessel mentasta coronary artery disease with a 90% left main stenosis extending into the proximal LAD, 95% ostial D1 stenosis, 50%-60% mid left circumflex stenosis, totally occluded ramus and proximal RCA. Grafts are patent including SEN to D1, SVG to the ramus intermedius, and an SVG to OM1. IMPRESSION AND PLAN: 1. Non-ST elevation myocardial infarction -- cardiac catheterization explained above. Dr. Richards felt that the stenosis in the left main stenting into the proximal LAD was the culprit; however, felt to be a high risk intervention. Recommend antianginal agents first. He is on low dose metoprolol tartrate at 12.5 mg b.i.d. along with an aspirin 81 mg daily. Asymptomatic at this time. 2. Significant aortic stenosis -- management per Dr. Dmuont. 3. Coronary artery disease -- status post CABG as described above. 4. Hypercholesterolemia -- refuses statins. 5. Disposition -- stable for hospital discharge if ambulatory in the hallways without difficulty.
[2017-07-10] MEDS ORDERED: HEPARIN IV LOW DOSE NO BOLUS STA (17:10)
[2017-07-10] MEDS ORDERED: HEPARIN SOD (PORCINE) 1000 UNIT/ML 10 ML VIAL ONE ×2 (17:24→18:19)
[2017-07-10] MEDS ORDERED: FENTANYL CITRATE INJ 50 MCG/1 ML 2 ML VIAL ONE (17:24)
[2017-07-10] MEDS ORDERED: MIDAZOLAM HCL 1 MG/ML 2ML VIAL ONE ×2 (17:24→18:39)
[2017-07-10] MEDS ORDERED: NITROGLYCERIN/D5W 100MCG/ML 20ML SYR ONE (17:24)
[2017-07-10] MEDS ORDERED: NiCARDipine HCL INJ 2.5 MG/ML 10 ML AMP ONE (17:24)
[2017-07-10] MEDS ORDERED: LIDOCAINE HCL 1% 20 ML VIAL ONE (17:25)
--- NOTE | 2017-07-10 17:38 | Pre Sedation Assessment ---
Pre Sedation Assessment General Date of Sedation: Jul 10, 2017. Vital Signs Past 12 Hours Date Time Temp Pulse Resp B/P (MAP) Pulse Ox O2 Delivery O2 Flow Rate FiO2 07/10/17 16:43 91 22 102/63 (76) 95 Nasal Cannula 2.0 07/10/17 16:00 98 CPAP 2.0 07/10/17 15:03 37.3 88 16 115/65 (82) 94 Nasal Cannula 2.0 07/10/17 14:05 73 100 07/10/17 12:00 98 CPAP 2.0 07/10/17 11:52 36.6 74 18 115/66 (82) 96 07/10/17 08:24 36.8 77 20 104/52 (69) 96 07/10/17 08:00 98 CPAP 2.0 Review Cardiovascular: regular rate, rhythm, no edema Lungs: chest non-tender, lungs clear Pre-Sedation Airway Assessment Smoking Status: Never Smoker Hx of Sleep Apnea: No Hx of difficult intubation: No Short Thick Neck: No Thyro-mental Distance: > 3 Finger Breadths Oral Cavity: WNL Mallampati Classification: Class II ASA Classification: Class II NPO Status Date of Last Intake of Fluids: Jul 08, 2017 Time of Last Intake of Fluids: 2099 Date of Last Intake of Solids: Jul 08, 2017 Time of Last Intake of Solids: 2099 Procedure Planning Contraindications for Sedation: None Current Medications Reviewed: Yes Notes The planned sedation has been discussed with the patient. Informed Consent was obtained. I have identified the patient, determined the appropriateness of sedation and have assessed the patient immediately prior to the procedure. All medicine(s) and interventions are by my order.
[2017-07-10] MEDS ORDERED: NOREPINEPHRINE BITARTRATE 1 MG/ML 4 ML VIAL IV ONE (17:50)
[2017-07-10] MEDS ORDERED: FUROSEMIDE 40 MG/4 ML VIAL ONE (18:14)
--- NOTE | 2017-07-10 19:12 | Post Sedation Assessment ---
Post Sedation Assessment General Date of Sedation Jul 10, 2017. Vital Signs: Vital Signs Past 12 Hours Date Time Temp Pulse Resp B/P (MAP) Pulse Ox O2 Delivery O2 Flow Rate FiO2 07/10/17 18:32 100 94 100 07/10/17 16:43 91 22 102/63 (76) 95 Nasal Cannula 2.0 07/10/17 16:00 98 CPAP 2.0 07/10/17 15:03 37.3 88 16 115/65 (82) 94 Nasal Cannula 2.0 07/10/17 14:05 73 100 07/10/17 12:00 98 CPAP 2.0 07/10/17 11:52 36.6 74 18 115/66 (82) 96 07/10/17 08:24 36.8 77 20 104/52 (69) 96 07/10/17 08:00 98 CPAP 2.0 Post Procedure Recovery Score Activity: (2) Moves 4 extremities * Respiration: (2) Deep breath/cough Circulation: (2) +/-20% PreAnes Value Consciousness: (2) Fully Awake Oxygen Saturation: (1) O2 needed for >90% Post Anesthesia Score: 9 Discharge Sedation Level of Care: Fast Track Phase II Post Sedation Plan On clinical assessment, the patient appears to have tolerated the sedation without complications. Patient is recovering as anticipated. Patient will continue to be monitored by nursing and may be discharged when sedation discharge criteria are met per below protocol. Upon Completions of procedure and additional 15 minutes continue every 5 minute vital signs and the P.A.R. score; then discharge to a Phase I or Fast Track to Phase II per the following guidelines: * Discharge Patient to appropriate Phase II area if PAR is 8 or greater or return to pre- procedure baseline. The post - procedure orders will be as directed. * If PAR score is less than 8 or not return to pre-procedure baseline then patient will follow Phase I monitoring till PAR is reached for Phase II. The Phase I may be done in procedure room or may call to secure a Phase I area. * If naloxone or flumazenil are used for reversal, hold in Phase I for an additional 60 -120 minutes before discharge to Phase II. Please call the Sedation Physician to re-evaluate and complete post-note for discharge to Phase II area. Do NOT discharge from procedure sedation or Phase 1 until post- sedation evaluation note is complete by procedure /sedation MD Sedation Discharge Instructions to be given to the patient at discharge to home.
[2017-07-10] MEDS ORDERED: CLOPIDOGREL BISULFATE 300 MG TAB PO ONE (19:17)
--- NOTE | 2017-07-10 19:33 | Cardiac Catheterization ---
Procedure Note Procedure Date Jul 10, 2017. Pre-Procedure Diagnosis Non STEMI AUC Score 8 Post-Procedure Diagnosis Severe CAD, Successful PCI Procedure(s) Performed Coronary Angiography, Drug Eluting Stent, Femoral Artery Angiography Claims Agent Right Of Way Maurice Rn Bariatric(s) Charles Estimated Blood Loss 20 Medication(s) Clopidogrel, Fentanyl, Heparin, Norepinephrine, Versed, Lidocaine 1% Summary of Findings Indication: NSTEMI -- Patient found yesterday to have severe LM/LAD disease for which medical management recommended. Today had episodes of presyncope, nausea and hypotension with minimal exertion and later developed persistent chest pain at rest with dynamic ST depressions. 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 Today found to have essentially separate ostium with heavily calcified, diffuse 90+ % disease involving ostium and proximal segment, 95% calcified focal lesion in mid LAD segment after take-off of 1st septal. -- PCI -- Antithrombotic therapy: Heparin, Clopidogrel Procedure: LM cannulated with EBU 3.75 guide Hotel Recreational Facilities Manager wire passed across lesions into distal LAD Ostial/proximal/mid lesions predilated with 2.0 and 2.5 compliant balloons Mid LAD lesion required additional high pressure inflations with 2.5 NC balloon to fully expand Dilated mid LAD lesion stented with 2.5 x 18 [place] SARI Stent post-dilated with stent balloon. BMW wire placed into circumflex 2nd [place] SARI (2.5 x 26) placed from LM/LAD ostium, overlapping with distally with initial stent Stent post-dilated with stent balloon Post procedure LANI 3 flow, stent well expanded with minimal residual stenosis and no apparent cardiac complications. During procedure initially hypotensive requiring intermittent norepinephrine, weaned off prior to completion of procedure. Requiring 10L 02 at start of procedure and required increasing O2 and eventual bipap. Received 40mg IV lasix with improvement. Weaned to nasal cannula after procedure completed. Arterial Closure: AngioSeal Summary: 1. Successful PCI of left main to mid LAD with 2 overlapping drug-eluting stents (2.5 x 26, 2.5 x 18 [place]). 2. Acute on chronic systolic heart failure Recommendations: To ICU for continued monitoring Loaded with Clopidogrel 600 mg in pathology laboratory director Continue dual-antiplatelet therapy for 1 year Continue statin, ASCVD risk factor modification Consult cardiac Rehab Hemodynamics Rest Ao: 76/35/53 Final Ao: 161/80/116 LV: -- Recommendations PCI without planned CABG Specimens None Radiation Exposure (mGy) 5465 Contrast (mls) 220 Visi Fluids (cc crystalloids) 100 Drains none Anesthesia Moderate Procedural Complication(s) None Disposition ICU ACC Data Cardiac Status Clinical evaluation leading to the procedure CAD Presntation: Non STEMI Anginal Classification: CCS IV Heart Failure: NYHA Class: CCS IV Cardiogenic Shock w/in 24Hrs: No Cardiac Arrest w/in 24Hrs: No Imaging studies past 6 months: Yes Stress studies past 6 months: No Closure Device Percutaneous Entry Location: Femoral Closure Device: Angio-Seal Recommendations: PCI without planned CABG PCI Indication: PCI for high risk Non-STEMI Lesion Segment Name: Proximal to mid LAD Culprit Artery: Yes Stenosis Prior to Rx (%): 95 Chronic Total Occlusion: No IVUS: No FFR: No Pre-Procedure LANI Flow: 2 Previously Treated Lesion: No Lesion Complexity: High/C Lesion Length (mm): 35 Thrombus Present: No Bifurcation Lesion: Yes Guidewire Across Lesion: Yes Guidewire: Stenosis Post-Procedure (%): 0 Post-Procedure LANI Flow: 3 Device(s) Deployed: Yes Intraprocedure Events Significant Dissection: No Perforation: No
[2017-07-10] MEDS ORDERED: ICU PROTOCOL FOR HYPERGLYCEMIA PRN (21:30)
[2017-07-10] MEDS: FINASTERIDE 5 MG TAB PO SCH (21:40)
--- NOTE | 2017-07-10 21:43 | Critical Care Consultation ---
Critical Care Consultation Date of Consultation: Jul 10, 2017. Attending Physician: Danny Ellis D.O. Reason for Consultation: 86-year-old male with NSTEMI w/ exertional CP and lateral ST depressions w/ confusion and diaphoresis requiring PTCA with SARI 2 to the mid LAD. During procedure patient was hypotensive requiring occasional Levophed drip. Hypoxia requiring 40 mg IV Lasix and BiPAP. Admitted for close cardiovascular and hemodynamic monitoring status post intervention. History of Present Illness Patient is an 86-year-old male with a significant past medical history of coronary artery disease status post CABG 3, 4 years ago with known history of severe aortic stenosis initially admitted to the telemetry service for NSTEMI and near syncope. Patient underwent catheterization yesterday which demonstrated moderate LAD disease suspected to be cooperative patient's current symptoms. At that point, it was felt that the patient was high risk for intervention and maximization of medical therapy was recommended. Patient had been improving and felt well enough to be discharged home. As he was ambulating the halls this afternoon prior to discharge, he became diaphoretic and confused. At that point, a CODE PURPLE was called at approximately 1400. An additional episode occurred at 1630. At that point, it was suggested the patient undergo emergent catheterization. An EKG during this time also demonstrated some lateral T-wave depression. Patient received 2 drug eluting stents to the mid LAD with successful deployment. He was loaded with 600 mg Plavix. While in the catheterization suite, the patient did develop some hypotension which required occasional Levophed drip which has since been titrated off. Additionally, the patient was hypoxic which was felt to be related to CHF. He received 40 mg of IV Lasix and BiPAP which did seem to correct his symptoms. He was transferred to the ICU with nasal cannula in place. Upon arrival to the ICU, the patient is awake, alert, and oriented. He has no recollection of today's earlier events. At this point, he offers no complaints. He currently denies any headaches, dizziness, lightheadedness, chest pain, palpitations, pleuritic pain, shortness of breath, nausea, vomiting , abdominal pain, hematochezia, melena, hematuria, or dysuria. Past Medical/Surgical History Medical Problems: (1) Acute cholecystitis (2) Aortic stenosis (3) Cellulitis and abscess of foot (4) Chest pain (5) Coronary artery bypass grafting (6) Diabetes mellitus (7) Diabetic peripheral neuropathy associated with type 2 diabetes mellitus (8) Foot deformity (9) Gastroesophageal reflux disease (10) Heart disease (11) History of diabetic ulcer of foot (12) Loss of sensation (13) Near syncope (14) Pre-ulcerative corn or callous Surgical Problems: (1) History of knee replacement (2) Hx of cholecystectomy (3) S/P hip replacement (4) S/P triple vessel bypass Family History Cancer Diabetes mellitus Heart disease Reviewed. Significant for h/o heart disease. Social History Smoking Status: Never Smoker Smokeless Tobacco Use: No Alcohol Use: none Drug Use: none Marital Status: Housing Status: lives with significant other Occupation Status: retired Allergies Coded Allergies: Bacitracin (Verified Allergy, Intermediate, RASH, 07/09/17) Neomycin (Verified Allergy, Intermediate, RASH, 07/09/17) Polymyxin B (Verified Allergy, Intermediate, RASH, 07/09/17) Unclassified Drugs (Unverified Allergy, Unknown, TEGADERM-RASH BLISTERS, ) Doxycycline (Verified Adverse Reaction, Mild, GI SYMPTOMS, 07/09/17) Tamsulosin (Verified Adverse Reaction, Unknown, hypotension/syncope, ) Home Medications Scheduled Aspirin (Aspirin Ec), 81 MG PO QPM Finasteride (Proscar), 5 MG PO QPM Insulin Aspart Protamine & Asp (Novolog Mix 70/30), 45 UNITS SC QAM Insulin Aspart Protamine & Asp (Novolog Mix 70/30), 40 UNITS SC QPM Metoprolol Tartrate (Lopressor), 12.5 MG PO BID Multiple Vitamins W/ Minerals (Preservision/Lutein), 1 CAP PO BID Pravastatin (Pravachol ), 40 MG PO DAILY Probiotic Product (Probiotic), 1 TAB PO QAM Resveratrol (Resveratrol), 1 TAB PO QPM Turmeric (Curcuma Longa) (Turmeric), 1 TAB PO QPM Ubiquinol (Ubiquinol), 100 MG PO QPM Scheduled PRN Cetirizine Hcl (Zyrtec Allergy), 10 MG PO DAILY PRN for allergies Fluticasone Propionate (Nasal) (Flonase Allergy Relief), 1 SPRAY FRANCIE DIRECTED PRN for Nasal Congestion Current Inpatient Medications Current Inpatient Medications Medications (Trade) Dose Ordered Sig/Mildred Route Start Time Stop Time Status Last Admin Dose Admin Acetaminophen (Tylenol Tab) 650 mg Q4H PRN PO 07/09/17 01:15 08/08/17 01:14 07/09/17 20:50 650 MG Al Hydrox/Mg Hydrox/Simethicone (Maalox Max Susp) 15 ml Q4H PRN PO 07/09/17 01:15 08/08/17 01:14 Magnesium Hydroxide (Milk Of Magnesia Susp) 30 ml Q12H PRN PO 07/09/17 01:15 08/08/17 01:14 Zolpidem Tartrate (Ambien Tab) 5 mg HSZ PRN PO 07/09/17 01:15 08/08/17 01:14 Ondansetron HCl (Zofran Inj) 4 mg Q6H PRN IV 07/09/17 01:15 08/08/17 01:14 07/10/17 16:44 4 MG Nitroglycerin (Nitrostat Tab) 0.4 mg UD PRN SL 07/09/17 01:15 08/08/17 01:14 Nitroglycerin (Nitroglycerin 2% Oint) 1 inch Q6H EXT 07/09/17 03:00 08/08/17 02:59 07/10/17 15:09 1 INCH Morphine Sulfate (MoRPHine SULFATE INJ) 2 mg Q30M PRN IV 07/09/17 01:15 07/23/17 01:14 07/10/17 16:44 2 MG Polyethylene (Miralax Powder Packet) 17 gm DAILY PRN PO 07/09/17 01:15 08/08/17 01:14 Aspirin (Ecotrin Tab) 81 mg QAM PO 07/09/17 09:00 08/08/17 08:59 07/10/17 08:13 81 MG Finasteride (Proscar Tab) 5 mg QPM PO 07/09/17 21:00 08/08/17 20:59 07/09/17 20:49 5 MG Fluticasone Propionate (Flonase Nasal [place]) 1 sprays BID PRN FRANCIE 07/09/17 01:15 08/08/17 01:14 Insulin Human NPH (novoLIN-N NPH) 22 units BIDM SC 07/09/17 07:30 08/08/17 07:29 07/10/17 08:16 22 UNITS Cetirizine HCl (zyrTEC TAB) 10 mg DAILY PRN PO 07/09/17 01:15 08/08/17 01:14 Miscellaneous Information (Consult Glycemic Management Pharmacy) 1 ea UD PRN N/A 07/09/17 01:44 08/08/17 01:43 Miscellaneous (Iv Fluids Completed) 1 ea PRN PRN N/A 07/09/17 01:30 07/09/18 01:29 Glucose (Glucose 40% Gel) 15-30 GRAMS 15 GRAMS... UD PRN PO 07/09/17 02:30 08/08/17 02:29 Glucose (Glucose Chew Tab) 4-8 Tablets 4 Tabl... UD PRN PO 07/09/17 02:30 08/08/17 02:29 Dextrose (Dextrose 50% 50ML Syringe) 25-50ML OF 50% DW IV FOR... UD PRN IV 07/09/17 02:30 08/08/17 02:29 Glucagon (Glucagon Inj) 1 mg UD PRN SQ 07/09/17 02:30 08/08/17 02:29 Metoprolol Tartrate (Lopressor Tab) 12.5 mg BID PO 07/09/17 21:00 08/08/17 20:59 07/10/17 08:14 12.5 MG Insulin Aspart (novoLOG ASPART) SLIDING SCALE ACHS SC 07/09/17 21:00 08/08/17 20:59 07/10/17 12:16 4 UNITS Clopidogrel Bisulfate (plAVix TAB) 75 mg QAM PO 07/11/17 09:00 08/10/17 08:59 Review of Systems A complete 10-point Review of Systems was discussed with the patient, with pertinent positives and negatives listed in the History of Present Illness. All remaining Review of Systems questions can be considered negative unless otherwise specified. Physical Exam Date Time Temp Pulse Resp B/P (MAP) Pulse Ox O2 Delivery O2 Flow Rate FiO2 07/10/17 20:45 95 17 113/64 (80) 100 BiPAP 50 07/10/17 20:30 87 20 113/64 (80) 100 BiPAP 50 07/10/17 20:24 93 100 50 07/10/17 20:15 88 20 137/70 (92) 100 BiPAP 50 07/10/17 20:00 36.7 91 20 131/64 (86) 100 BiPAP 50 07/10/17 20:00 100 BiPAP 50 07/10/17 20:00 87 20 135/73 (93) 100 BiPAP 50 07/10/17 19:45 36.6 95 20 131/75 (93) 100 BiPAP 50 07/10/17 19:33 36.7 92 20 131/86 (101) 100 Ambu-Bag 50 07/10/17 19:31 96 97 50 07/10/17 18:32 100 94 100 07/10/17 16:43 91 22 102/63 (76) 95 Nasal Cannula 2.0 07/10/17 16:00 98 CPAP 2.0 07/10/17 15:03 37.3 88 16 115/65 (82) 94 Nasal Cannula 2.0 07/10/17 14:05 73 100 07/10/17 12:00 98 CPAP 2.0 07/10/17 11:52 36.6 74 18 115/66 (82) 96 07/10/17 08:24 36.8 77 20 104/52 (69) 96 07/10/17 08:00 98 CPAP 2.0 07/10/17 04:00 98 CPAP 07/10/17 03:13 36.8 66 20 110/61 (77) 98 CPAP 07/09/17 23:59 96 CPAP 07/09/17 23:11 36.8 60 19 93/54 (67) 96 CPAP VITAL SIGNS - Vital signs and nursing notes were reviewed. GENERAL - 86-year-old male appearing younger than his stated age who is in no acute distress. Communicates well with provider and answers questions appropriately. HEAD - NC/AT. EYES - PERRL with EOMI bilaterally. Sclera anicteric. Palpebral conjunctiva pink and moist with no injection noted. EARS - No deformities of external structures noted on gross examination bilaterally. NOSE - Midline and without cyanosis. Nasal home CPAP mask in place. MOUTH/OROPHARYNX - Without perioral cyanosis. Buccal mucosa pink and moist and without leukoplakia. Tongue midline with equal elevation of palate bilaterally. NECK - Neck with FROM. Supple to palpation. LUNGS - Chest wall symmetric without accessory muscle use, intercostals retractions, or central cyanosis. Normal vesicular breath sounds CTA B/L. No wheezes, rales, or rhonchi appreciated. CARDIAC - RRR with S1/S2. No murmur, rubs, or gallops appreciated. No reproducible tenderness to palpation appreciated over the anterior chest wall. ABDOMEN - Abdominal contour flat and without pulsations or visible masses. BS normoactive all four quadrants. No tenderness, palpable masses, hepatosplenomegaly, or ascites noted. EXTREMITIES - No clubbing or peripheral cyanosis. No pretibial edema present. +3 /5 radial and dorsalis pedis pulses palpated throughout. +5/5 strength noted in UE/LE bilaterally. NEUROLOGIC - Cranial nerves II through XII grossly intact. Sensory intact to light touch throughout. PSYCH - A&Ox3 and cooperates fully with examiner. Patient was confused as to current year (states 2079). Otherwise he is able to provide Name, , current location, and nature of visit. Pt is very pleasant and interacts well with examiner. Laboratory Results Last 24 Hours Test 07/10/17 01:17 07/10/17 05:25 07/10/17 06:47 07/10/17 11:19 Troponin I 0.445 ng/ml White Blood Count 3.81 K/uL Red Blood Count 3.55 M/uL Hemoglobin 12.0 g/dL Hematocrit 33.9 % Mean Corpuscular Volume 95.5 fL Mean Corpuscular Hemoglobin 33.8 pg Mean Corpuscular Hemoglobin Concent 35.4 g/dl Platelet Count 118 K/uL Mean Platelet Volume 10.3 fL Neutrophils (%) (Auto) 43.8 % Lymphocytes (%) (Auto) 36.0 % Monocytes (%) (Auto) 14.7 % Eosinophils (%) (Auto) 4.5 % Basophils (%) (Auto) 0.5 % Neutrophils # (Auto) 1.67 K/uL Lymphocytes # (Auto) 1.37 K/uL Monocytes # (Auto) 0.56 K/uL Eosinophils # (Auto) 0.17 K/uL Basophils # (Auto) 0.02 K/uL RDW Standard Deviation 45.9 fL RDW Coefficient of Variation 13.1 % Immature Granulocyte % (Auto) 0.5 % Immature Granulocyte # (Auto) 0.02 K/uL Activated Partial Thromboplast Time 25.7 SECONDS Partial Thromboplastin Ratio 1.0 Sodium Level 139 mmol/L Potassium Level 4.1 mmol/L Chloride Level 109 mmol/L Carbon Dioxide Level 22 mmol/L Anion Gap 8.0 mmol/L Blood Urea Nitrogen 20 mg/dl Creatinine 0.88 mg/dl Est Creatinine Clear Calc Drug Dose 69.7 ml/min Estimated GFR () 90.1 Estimated GFR (Non- 77.8 BUN/Creatinine Ratio 22.5 Random Glucose 126 mg/dl Calcium Level 8.0 mg/dl Bedside Glucose 146 mg/dl 139 mg/dl Test 07/10/17 14:12 07/10/17 14:18 07/10/17 16:19 07/10/17 18:14 Troponin I 0.214 ng/ml Bedside Glucose 117 mg/dl 136 mg/dl Kaolin Activated Coagulation Time 224 SECONDS Test 07/10/17 18:38 Kaolin Activated Coagulation Time 263 SECONDS Diagnostic Results Radiological imaging and reports were reviewed by myself. Radiologist's Interpretation as follows: CHEST ONE VIEW PORTABLE HISTORY: Chest discomfort. Near syncope. eval for cardiomegly COMPARISON: None. FINDINGS: The lungs are clear. Cardiac silhouette is normal in size. No pleural effusions. No pneumothorax. Poststernotomy changes. IMPRESSION: No acute process. Assessment & Plan (1) CHF (congestive heart failure) (2) Hypotension (3) CAD (coronary artery disease) (4) Hypoxia (5) NSTEMI (non-ST elevated myocardial infarction) (6) S/P PTCA (percutaneous transluminal coronary angioplasty) (7) Aortic stenosis, severe (8) Near syncope (9) Chest pain (10) Diabetic peripheral neuropathy associated with type 2 diabetes mellitus (11) Coronary artery bypass grafting (12) Gastroesophageal reflux disease (13) Diabetes mellitus Reason Critically Ill: 86-year-old male with NSTEMI w/ exertional CP and lateral ST depressions w/ confusion and diaphoresis requiring PTCA with SRAI 2 to the mid LAD. During procedure patient was hypotensive requiring occasional Levophed drip. Hypoxia requiring 40 mg IV Lasix and BiPAP. Admitted for close cardiovascular and hemodynamic monitoring status post intervention. Neuro - * CAM ICU: NEGATIVE * Pain - will need to assess cardiac versus noncardiac sources of pain. * Nitro versus Morphine. * Dementia - Monitor closely for any changes in mental status. Cardiac - * NSTEMI w/ worsening s/s requiring emergent PTCA w/ DESx2 to the Mid LAD: * Received 600mg Plavix initially. * Required Levophed/Lasix/BiPAP during procedure. Did receive Versed/Fentanyl. s/s seem to be improving. * Repeat EKG shows NSR 93bpm, improved lateral ST depression from prior. QTc 467ms * Will trend troponins. * DAPT x1 year. * Continue low dose BB as tolerates. * Statin - stress importance of taking all meds. * Will defer utility of repeat Echo to Cardiology. * ??CHF intraoperatively: * Monitor closely for any changes. * Lasix PRN * Currently tolerating home nasal BiPAP well. Respiratory - * Hypoxia: * Required BiPAP, Lasix intraprocedurally. * Continue w/ home BiPAP nasal device as he did not tolerate full face mask. * CXR for AM. Repeat sooner for any changes in O2 requirement. * Continue to constantly monitor pules oximetry. GI - * Progress diet as tolerates: * Agree with AHA/DM diet. RENAL/LYTES - * No acute electrolyte derangement. * Will monitor closely in the setting of recent IV contrasts loads for cath procedures. * Hold off on IVF 2/2 concerns of CHF. - * h/o BPH - continue home Rx * Lakhani Catheter at this point. ENDO - * DMII: * ISS coverage at this point. gtt per protocol. * A1c 7.6 * No h/o Thyroid Dz. HEME - * Slight trend down in H&H. * Could certainly be dilutional component. * With recent heparin gtt and procedures, will recheck CBC. * Will add Type/Screen in the unlikely event of drop <10 requiring transfusion. * Slight thrombocytopenia: * Trending down since admission. * Will repeat and watch closely for any changes. * Heparin gtt to be D/C per cardiology. ID - * No c/o infection at this point. * Trend fever curve. LINES/IV ACCESS - * PIVs x2 intact. DVT PROPHYLAXIS - * DAPT * Previously on heparin gtt. d/c per cardiology. * Platelet count 112. I have personally spent 35 minutes of critical care time in the direct management of this patient. This is a life/limb threatening event. This includes time spent evaluating patient, direct bedside care, chart review, placing orders, interpretation of diagnostic studies, discussion with consultants, patient, and family members, as well as other required patient management activities. This time is exclusive of all separately billable procedures, and teaching time and separate from and in addition to any other critical care service time. Thank you for this consultation allow us to be part of this patient's care. Please refer to my attending physician's documentation for any further recommendations. The chart reviewed, agree with assessment and plan of my colleagues at [facility], no further recommendations from CCM and pulmonary standpoint, continue with the BiPAP as needed, diuresis and optimize his cardiac status per cardiology.. Critical care time spent with the patient 35 minutes. Problem Qualifiers (1) CHF (congestive heart failure): Heart failure chronicity: unspecified (2) Hypotension: Hypotension type: unspecified hypotension type Qualified Codes: I95.9 - Hypotension, unspecified (3) Chest pain: Chest pain type: precordial pain Qualified Codes: R07.2 - Precordial pain (4) Gastroesophageal reflux disease: Esophagitis presence: esophagitis presence not specified Qualified Codes: K21.9 - Gastro-esophageal reflux disease without esophagitis (5) Diabetes mellitus: Diabetes mellitus type: type 2
[2017-07-10 22:44] LABS: BASO % 0.1 %; BASO ABS # 0.01 K/uL (0-0.2); HEMOGLOBIN 14.6 g/dL (14.0-18.0); IG# 0.04 K/uL (0.00-0.02); LYMPH % 4.3 %; LYMPH ABS # 0.46 K/uL (1.2-3.4); MEAN CELL VOLUME 94.6 fL (80-100); MEAN CORPUSCULAR HEMOGLOBIN 34.5 pg (25-34); MEAN CORPUSCULAR HGB CONC 36.5 g/dl (32-36); MEAN PLATELET VOLUME 10.1 fL (7.4-10.4); MONO % 14.1 %; MONO ABS # 1.53 K/uL (0.11-0.59); NEUT % 81.1 %; NEUT ABS # 8.78 K/uL (1.4-6.5); PLATELET COUNT 112 K/uL (130-400); RED CELL DISTRIBUTION WIDTH SD 45.1 fL (36.4-46.3); WHITE BLOOD COUNT 10.82 K/uL (4.8-10.8)
[2017-07-10 23:01] LABS: CALCIUM 8.2 mg/dl (8.5-10.1); CREATININE 1.21 mg/dl (0.60-1.40)
[2017-07-11] VITALS (10 sets, daily range): BP systolic 85–105; BP diastolic 46–63; PULSE 77–98; TEMP 36.5–37.4; O2SAT 95–99
[2017-07-11] MEDS: NITROGLYCERIN 2% OINTMENT 30GM TUBE EXT SCH (03:11)
[2017-07-11 05:43] LABS: HEMATOCRIT 37.8 % (42-52); HEMOGLOBIN 13.5 g/dL (14.0-18.0); MEAN CELL VOLUME 95.2 fL (80-100); MEAN CORPUSCULAR HGB CONC 35.7 g/dl (32-36); MEAN PLATELET VOLUME 10.1 fL (7.4-10.4); PLATELET COUNT 107 K/uL (130-400); RED CELL DISTRIBUTION WIDTH CV 13.2 % (11.5-14.5); RED CELL DISTRIBUTION WIDTH SD 45.3 fL (36.4-46.3); WHITE BLOOD COUNT 10.77 K/uL (4.8-10.8)
[2017-07-11 05:55] LABS: PTT PATIENT 27.2 SECONDS (21.0-31.0)
[2017-07-11 06:17] LABS: CALCIUM 8.3 mg/dl (8.5-10.1); CREATININE 1.29 mg/dl (0.60-1.40); POTASSIUM 4.3 mmol/L (3.5-5.1)
[2017-07-11 06:33] LABS: CKMB 34.2 ng/ml (0.5-3.6); PHOSPHORUS 3.7 mg/dl (2.5-4.9)
--- NOTE | 2017-07-11 06:57 | DIAGNOSTIC IMAGING REPORT ---
CHEST ONE VIEW PORTABLE CLINICAL HISTORY: Congestive failure COMPARISON STUDY: July 09, 2017 FINDINGS: There are postsurgical changes of midline sternotomy. The heart is normal in size. There is no focal pulmonary consolidation. There is no overt failure. There is blunting of the right lateral costophrenic angle suggesting a trace pleural effusion.[ IMPRESSION: Suspected trace right pleural effusion. Otherwise negative chest. Electronically signed by: Ray Garza M.D. 07/11/2017 6:56 AM Dictated Date/Time: 07/11/2017 6:55 AM
[2017-07-11] MEDS ORDERED: NURSING VERBAL MED ORDER ONE (08:45)
[2017-07-11] MEDS ORDERED: RAPID SEQUENCE INDUCTION BAG ONE (08:47)
[2017-07-11] MEDS ORDERED: FENTANYL CITRATE 1250MCG/250ML NSS ONE (08:57)
[2017-07-11] MEDS ORDERED: CLOPIDOGREL BISULFATE 75 MG TAB PO SCH (09:00)
[2017-07-11] MEDS ORDERED: NOREPINEPHRINE BITARTRATE 1 MG/ML 4 ML VIAL IV ONE (09:23)
[2017-07-11] MEDS ORDERED: MoRPHine SULFATE 4 MG/ML 1 ML CARP\\VIAL ONE (09:35)
[2017-07-11] MEDS ORDERED: MoRPHine SULFATE 4 MG/ML 1 ML CARP\\VIAL IV STA (09:40)
[2017-07-11] MEDS ORDERED: EPINEPHRINE HCL 4 MG in DEXTROSE 5% 250ML IV PRN (09:45)
[2017-07-11] MEDS ORDERED: NOREPINEPHRINE BIT INJ 4 MG in DEXTROSE 5% 250ML 250 ML IV PRN (09:45)
--- NOTE | 2017-07-11 10:02 | Clinical Documentation Query ---
CLINICAL DOCUMENTATION QUERY Dr. WALKER, Discrepancy noted in documentation between cardiology notes and attending notes. Cardiology indicates pt with NSTEMI. Attending notes: near syncope chest pain secondary to A.S. vs ACS. ACS is not equivalent to a myocardial infarction and will not be coded as an NC. In your clinical opinion is this patient being managed for: ( ) NSTEMI ( ) Not Agree ( ) Other explanation of clinical findings (Please Explain) ( ) Unable to determine (Please Define) ( ) Need to Discuss Please clarify and document your clinical opinion in the progress notes and discharge summary. Terms such as "probable", "suspected", "likely", "questionable", "possible", or "still to be ruled out" are acceptable. IF IN AGREEMENT, YOU MUST DOCUMENT ABOVE DIAGNOSTIC STATEMENT IN DAILY PROGRESS NOTES AND DISCHARGE SUMMARY. This document is not part of the patient's record. Thank You, Dahlia Richards, RN [phone]
--- NOTE | 2017-07-11 10:04 | Clinical Documentation Query ---
CLINICAL DOCUMENTATION QUERY Dr. MAS, Discrepancy noted in documentation between cardiology notes and attending notes. Cardiology indicates pt with NSTEMI. Attending notes: near syncope chest pain secondary to A.S. vs ACS. ACS is not equivalent to a myocardial infarction and will not be coded as an ME. In your clinical opinion is this patient being managed for: ( ) NSTEMI ( ) Not Agree ( ) Other explanation of clinical findings (Please Explain) ( ) Unable to determine (Please Define) ( ) Need to Discuss Please clarify and document your clinical opinion in the progress notes and discharge summary. Terms such as "probable", "suspected", "likely", "questionable", "possible", or "still to be ruled out" are acceptable. IF IN AGREEMENT, YOU MUST DOCUMENT ABOVE DIAGNOSTIC STATEMENT IN DAILY PROGRESS NOTES AND DISCHARGE SUMMARY. This document is not part of the patient's record. Thank You, Dahlia Richards RN [phone]
--- NOTE | 2017-07-11 10:29 | Cardiology Follow-Up ---
Cardiology Follow-Up Date of Service Jul 11, 2017. Cardiology Follow-Up When I presented to the bedside to evaluate Mr. Kan, he was undergoing chest compressions. A code blue had been called prior to my arrival. Please see documentation by ICU critical care team regarding the details. Dr. Akers informed me that he apparently vomited his breakfast this morning and then had an episode later of wide complex tachycardia. He states that he had been defibrillated multiple times and at 1 point asystole was noted. He was given several rounds of epinephrine and also started on an epinephrine drip. At some point he then became bradycardic and atropine was given. A pulse was obtained intermittently throughout the code. The pulse however was non sustainable. While at the bedside, we did perform a brief ultrasound and noted that his LV systolic function appeared severely reduced. Image quality was poor and an official echo was not done as this was during the code blue situation. Family was notified by other providers. After 35 minutes, I spoke with Dr. Akers that meaningful recovery is not likely especially given his aortic stenosis and other comorbidities including recent myocardial infarction during this hospitalization. Following cessation of chest compressions, right carotid pulse was no longer palpable. I met briefly with Mr. Kan's . She requested that her and her family present to the bedside to spend time with her . They were then escorted into the room.
--- NOTE | 2017-07-11 10:32 | Post Sedation Assessment ---
Post Sedation Assessment General Date of Sedation Jul 11, 2017. Vital Signs: Vital Signs Past 12 Hours Date Time Temp Pulse Resp B/P (MAP) Pulse Ox O2 Delivery O2 Flow Rate FiO2 07/11/17 08:01 98 18 90/50 (63) 95 07/11/17 07:32 92 17 105/63 (77) 96 07/11/17 07:31 93 22 92/61 (71) 96 07/11/17 07:30 37.3 92 20 105/63 (77) 97 Nasal Cannula 2.0 07/11/17 07:30 84 18 95 07/11/17 07:30 Nasal Cannula 2.0 07/11/17 05:16 88 97 30 07/11/17 04:00 99 BiPAP 2.0 30 07/11/17 04:00 37.4 86 20 101/51 (68) 98 BiPAP 30 07/11/17 02:56 87 99 30 07/11/17 01:21 77 20 85/46 (59) 98 BiPAP 07/11/17 00:21 79 20 88/47 (61) 99 BiPAP 40 07/11/17 00:01 36.5 82 20 89/51 (64) 99 BiPAP 40 07/11/17 00:01 98 BiPAP 40 07/10/17 23:21 88 21 90/53 (65) 99 BiPAP 40 Post Procedure Recovery Score Activity: (2) Moves 4 extremities * Respiration: (2) Deep breath/cough Circulation: (2) +/-20% PreAnes Value Consciousness: (2) Fully Awake Oxygen Saturation: (1) O2 needed for >90% Post Anesthesia Score: 9 Discharge Sedation Level of Care: Fast Track Phase II Post Sedation Plan On clinical assessment, the patient appears to have tolerated the sedation without complications. Patient is recovering as anticipated. Patient will continue to be monitored by nursing and may be discharged when sedation discharge criteria are met per below protocol. Upon Completions of procedure and additional 15 minutes continue every 5 minute vital signs and the P.A.R. score; then discharge to a Phase I or Fast Track to Phase II per the following guidelines: * Discharge Patient to appropriate Phase II area if PAR is 8 or greater or return to pre- procedure baseline. The post - procedure orders will be as directed. * If PAR score is less than 8 or not return to pre-procedure baseline then patient will follow Phase I monitoring till PAR is reached for Phase II. The Phase I may be done in procedure room or may call to secure a Phase I area. * If naloxone or flumazenil are used for reversal, hold in Phase I for an additional 60 -120 minutes before discharge to Phase II. Please call the Sedation Physician to re-evaluate and complete post-note for discharge to Phase II area. Do NOT discharge from procedure sedation or Phase 1 until post- sedation evaluation note is complete by procedure /sedation MD Sedation Discharge Instructions to be given to the patient at discharge to home.
--- NOTE | 2017-07-11 10:44 | Discharge Summary ---
Discharge Summary Date of Service Jul 11, 2017. Discharge Summary Admission Date: Jul 09, 2017 at 10:38 Discharge Date: Jul 10, 2017 Discharge Disposition: Principal Diagnosis: 1. Acute myocardial infarction. 2. Severe aortic stenosis. 3. Peripheral arterial disease. 4. Coronary artery disease, status post CABG, status post PCI. 5. Cardiac arrest secondary to V. tach/V. fib. The patient after 35 minutes of a code. Procedures: PCI, intubation, a line, CPR. Consultations: Intensive care and cardiology. Admission Information HPI (per Admitting provider): Pt is a pleasant 86M with a PMHx of CABG, Moderate Aortic Stenosis, DM2 s/p R Toe Amputation & CLINT p/w near fall today after walking from the kitchen to the bedroom. Pt reports that he became lightheaded and had some midline dull chest pain. He lied down and his symptoms went away. This is the patients third near fall in the past week and all events were precipitated by walking. The last event happened after walking to his house from the mailbox. Tonight event was the only event with chest pain. Patient follows with Dr. Dumont and Dr. Niño. Dr. Niño has ordered an echocardiogram for the end of the month. Pt reports being told that he was not a good candidate for Aortic replacement surgery because of his CABG and the resulting complications from it. Other than the near syncopal events patient describes his recent health as good. See ROS. PMHx: CABG, , CLINT, DM2 on Insulin. SHx: Never smoker, never chewed. Lives with . Physical Exam (per Admitting): General Appearance: WD/WN, no apparent distress Head: normocephalic, atraumatic Eyes: normal inspection, PERRL ENT: normal ENT inspection Neck: supple, no JVD Respiratory/Chest: chest non-tender, normal breath sounds, no respiratory distress, no accessory muscle use, + crackles (bilateral lower lobes), + pertinent finding (midline sternotomy scar. ) Cardiovascular: regular rate, rhythm, + pertinent finding (systolic murmur, ) Abdomen/GI: normal bowel sounds, non tender, soft, no organomegaly, no pulsatile mass Back: normal inspection, no CVA tenderness Extremities/Musculoskelatal: normal inspection, no calf tenderness, no pedal edema Neurologic/Psych: rn l and d II-XII nml as tested, no motor/sensory deficits, alert , normal mood/affect, oriented x 3 Skin: normal color, warm/dry, no rash Hospital Course (1) CHF (congestive heart failure) (2) Hypotension (3) CAD (coronary artery disease) (4) Hypoxia (5) NSTEMI (non-ST elevated myocardial infarction) (6) S/P PTCA (percutaneous transluminal coronary angioplasty) (7) Aortic stenosis, severe (8) Near syncope (9) Chest pain (10) Diabetic peripheral neuropathy associated with type 2 diabetes mellitus (11) Coronary artery bypass grafting (12) Gastroesophageal reflux disease (13) Diabetes mellitus This is a 86-year-old gentleman with above past medical history who presented to the hospital initially underwent a cardiac cath and has to return back again for the PCI. After the PCI, the patient developed increasing shortness of breath accompanied with hypotension. The patient initially was thought to be related to a cardiac event but the patient end up being placed on the BiPAP overnight and was given Lasix. And responded very well. The patient did not have any chest pain or cough. No fever and no other pain. While the patient was eating breakfast today he was noted to have an episode of sudden onset nausea vomiting and loss of consciousness. That is not appear to be a choking event as the patient did not lose his O2 saturation. The patient was found to be in wide-complex tachycardia V. tach. The patient started on ambo bagging in preparation for intubation as he was totally unresponsive and looking ashy color. The patient was started on amiodarone 150 mg. The patient was intubated with #8 ET tube by my colleague Carlos Leigh. While the patient is in the process, he developed significant bradycardia and received atropine and followed by epinephrine. The patient lost his pulse as well. Chest compression was started immediately. The patient received total of 8 rounds of epinephrine and was started also on dopamine to maintain blood pressure. Levophed was also started. Epinephrine drip also was started. The patient went into V. tach, V. fib, requiring defibrillation 4 times. The patient did develop after that what appeared to be complete heart block was given a dose of atropine. Despite all the efforts, the patient did recover weak rhythm and lost his pulses more frequently. Echocardiogram was done at the bedside which showed very diminished cardiac function. With poor EF, literally dying heart. After 35 minutes of the codes, I have discussed the case with the family that the efforts were fruitless at this point. The patient did not gain the rhythm follow significant amount of time to sustain and support his hemodynamics and vitals. The code was stopped and the patient pronounced at 9:37 AM on July 11, 2017. Cause of is natural secondary to acute myocardial infarction. Family were at the bedside, Dr. Dumont from cardiology presented for the code as well. On agreed with the plan. certificate was filled and for further details he may refer to my colleague Eliezer Castaneda notes. Critical care time spent with the patient including the code and discussion with the family and the staff was 45 minutes. Total time spent on discharge = This includes examination of the patient, discharge planning, medication reconciliation, and communication with other providers. Discharge Instructions None, patient is . Problem Qualifiers (1) CHF (congestive heart failure): Heart failure chronicity: unspecified (2) Hypotension: Hypotension type: unspecified hypotension type Qualified Codes: I95.9 - Hypotension, unspecified (3) Chest pain: Chest pain type: precordial pain Qualified Codes: R07.2 - Precordial pain (4) Gastroesophageal reflux disease: Esophagitis presence: esophagitis presence not specified Qualified Codes: K21.9 - Gastro-esophageal reflux disease without esophagitis (5) Diabetes mellitus: Diabetes mellitus type: type 2
--- NOTE | 2017-07-11 10:45 | [facility] Operative Report ---
Operative Report Operative Date Jul 11, 2017. Pre-Operative Diagnosis NONE Post-Operative Diagnosis NONE Procedure(s) Performed NONE Surgeon NONE Estimated Blood Loss NONE Description of Procedure NOTE ENTERED IN ERROR I attest to the content of the Intraoperative Record and any orders documented therein. Any exceptions are noted below.
[2017-07-11] MEDS ORDERED: SODIUM CHLORIDE 0.9% 10ML FLUSH IV ONE ×2 (11:32)
[2017-07-11] MEDS ORDERED: AMIODARONE HCL INJ 50 MG/ML 3 ML VIAL IV ONE (11:32)
[2017-07-11] MEDS ORDERED: SODIUM BICARB 8.4% INJ 50 MEQ/50 ML SYR IV ONE (11:32)
[2017-07-11] MEDS ORDERED: ROCURONIUM BROMIDE 10 MG/ML 5 ML VIAL IV ONE (11:32)
[2017-07-11] MEDS ORDERED: DOPamine 400MG / 250ML D5W IV ONE (11:32)
[2017-07-11] MEDS ORDERED: ATROPINE SULFATE 0.1 MG/ML 10 ML SYR IV ONE ×2 (11:32)
[2017-07-11] MEDS ORDERED: ETOMIDATE 2 MG/ML 20 ML VIAL IV ONE (11:32)
--- NOTE | 2017-07-11 12:30 | Procedure Note ---
Procedure Note Procedure Date Jul 11, 2017. Procedure Description Procedure Name: Left radial arterial line Procedure time out: side/site verified, patient ID confirmed, correct procedure Consent obtained: emergent consent implied (Code blue) Time of procedure: 09:20 Performed by: physician electric cell tender (Carlos Leigh PA-C) Indications: other (Arterial pressure monitoring) Description: Using clean technique, artery was visualized with bedside ultra sound. Left radial area then prepped with chlorhexadine. Using ultra sound with a sterile cover, the artery was located and a finder needle with overlying catheter was used to access the arterial lumen. A flash was obtained and the wire was easily advanced into the artery. Using longitudinal view, the wire was easily visualized within the arterial lumen. The catheter was advanced over the wire and the catheter was visualized with the ultra sound within the lumen. The wire was removed easily. There was no blood flow. The catheter was again visualized within the artery as the patient was pronounced and the code was terminated. Complications: none Patient tolerated procedure: well Post-procedure vital signs: reviewed and stable Comments: Dr Akers was present for the duration of the code
--- NOTE | 2017-07-11 12:39 | Procedure Note ---
Procedure Note Procedure Date Jul 11, 2017. Procedure Description Procedure Name: Endotracheal intubation Procedure time out: side/site verified, patient ID confirmed, correct procedure Consent obtained: emergent consent implied (Code blue with PEA) Time of procedure: 08:55 Performed by: physician bundle sorter (Carlos Leigh PA-C) Indications: other (Code blue with PEA) Contraindications: none Description: Using a Glidescope with a #3 blade, patients posterior pharynx was visualized and contents suctioned with a Yankauer device. Patient was ventilated with a bag -valve-mask and 20mg of Etomidate and 50mg of Rocuronium was administered intravenously as ordered by Dr. Akers. The patient was noted to have an SaO2 of 98%. The Glidescope was again introduced and the true vocal chords were visualized. There was symmetrical movement was noted. There was no debris on the chords. An 8mm endotracheal tube was then introduced and visualized as it passed through the vocal chords. The cuff was inflated and there was noted color change to the CO2 detector. Breath sounds were noted bilaterally. The patient was easily ventilated with a [id number] with saturations noted with an SaO2 of 100%. There were no complications and no bleeding as a result of intubation. Complications: none Patient tolerated procedure: well Post-procedure vital signs: reviewed and stable Comments: Dr. Akers was present for the entire code
--- NOTE | 2017-07-11 12:53 | Procedure Note ---
Procedure Note Procedure Date Jul 11, 2017. Procedure Description Procedure Name: Oral gastric tube Procedure time out: side/site verified, patient ID confirmed, correct procedure Consent obtained: emergent consent implied (Code blue S/P endotracheal intubation) Time of procedure: 09:05 Performed by: physician law enforcement officer (Carlos Leigh PA-C) Indications: therapeutic Contraindications: none Description: After the patient was intubated, the endotracheal cuff was inflated. An 18 Fr nasal gastric tube was advanced to the left of the ET tube without difficulty or resistance. Nurse was unable to appreciate gastric sounds with insufflation. Consequently, the tube was removed and passed to the right of the ET tube without difficulty or resistance. Gastric sounds were appreciated. Tube was placed to LIWS and gastric contents were aspirated with large pieces of food product. The OGT was then flushed with 30mL of water X 2 and left on LIWS. There was no apparent blood or coffe ground emesis aspirated. Complications: none Patient tolerated procedure: well Post-procedure vital signs: reviewed and stable Comments: Dr. Akers was present for the entire code
--- NOTE | 2017-07-11 13:32 | Critical Care Progress Note ---
Critical Care Progress Note Date of Service Jul 11, 2017. Attending Dr. Akers Subjective Called to patient room at 08 40 by senior staff consultant. Patient found to have vomited and was bradycardic in the 30s and hypoxic at 88%. Patient immediately put into the left lateral recumbent recovery position and oral cavity was aspirated with a Yankauer to suction. Mouth was then cleaned of visual food particles. Patient's heart rate then increased into the 90s and saturation improved to 93% with nasal cannula at 4 L. Patient then developed a wide-complex tachyarrhythmia. At that time I left the room and asked Dr. Akers and Dung Rowell RN to come to room 108 and assist with resuscitation. Patient was then put back in a supine position and an Ambu bag [id number] was used to oxygenate the patient. Saturations were recorded at 95 and 96%. Patient then began to bradycardia down. Patient was then intubated at 08:55. Please refer to intubation procedure note. Patient then lost pulse and went into PEA and a code was called at 08 58. Compressions were started immediately. Endotracheal tube was secured and patient was oxygenating at 98-100% with a bag valve mask. An OG tube was then passed successfully and stomach contents were aspirated. Please refer to procedure note for OG tube insertion. I then used the ultrasound at bedside and placed an arterial line in the left radial artery. This was visualized with longitudinal view of ultrasound to be in the radial artery. There was no return of blood as the patient was pulseless. The patient was then declared to be at [address] Akers. Please refer to procedure notes for endotracheal intubation, OG tube placement, left radial arterial line placement. Objective Patient unresponsive SaO2 88% on arrival HR 37 with NSR on the monitor. Converted to wide complex V-tach with a rate of 122 No abdominal distention Vomit on chest, right shoulder, and in oral cavity and both nares Pulse palpable at left radial artery Pupils equal, gaze conjugate Assessment & Plan 86 yo male with recent PCI with multiple stent placement. Called to room for aspiration and change in mental status. Patient placed in left lateral recumbent position and suctioned. Patient declined rapidly and a code blue was called (please see code report). Patient intubated successfully. Cardiac compressions performed immediately. Despite aggressive measures pursuant to ACLS protocol, patient at 09:37 after 39 minutes of resuscitation. Family brought into room after patient was declared by Dr. Akers. Consults & Procedures Procedures: Endotracheal intubation Oral gastric tube Left radial arterial line Cardiopulmonary resuscitation Cardiac ultra sound at bedside Data Vital Signs: Date Time Temp Pulse Resp B/P (MAP) Pulse Ox O2 Delivery O2 Flow Rate FiO2 07/11/17 08:01 98 18 90/50 (63) 95 07/11/17 07:32 92 17 105/63 (77) 96 07/11/17 07:31 93 22 92/61 (71) 96 07/11/17 07:30 37.3 92 20 105/63 (77) 97 Nasal Cannula 2.0 07/11/17 07:30 84 18 95 07/11/17 07:30 Nasal Cannula 2.0 07/11/17 05:16 88 97 30 07/11/17 04:00 99 BiPAP 2.0 30 07/11/17 04:00 37.4 86 20 101/51 (68) 98 BiPAP 30 07/11/17 02:56 87 99 30 07/11/17 01:21 77 20 85/46 (59) 98 BiPAP 18 00:21 79 20 88/47 (61) 99 BiPAP 40 07/11/17 00:01 36.5 82 20 89/51 (64) 99 BiPAP 40 18 00:01 98 BiPAP 40 07/10/18 23:21 88 21 90/53 (65) 99 BiPAP 40 //18 22:21 92 20 100/56 (71) 99 BiPAP 40 18 22:18 87 100 40 07/10/18 22:15 90 20 94/53 (67) 99 BiPAP 50 07/10/18 21:15 36.8 89 20 105/71 (82) 100 BiPAP 50 07/10/18 20:45 95 17 113/64 (80) 100 BiPAP 50 07/10/18 20:30 87 20 113/64 (80) 100 BiPAP 50 /3/18 20:24 93 100 50 //18 20:15 88 20 137/70 (92) 100 BiPAP 50 07/10/18 20:00 36.7 91 20 131/64 (86) 100 BiPAP 50 07/10/18 20:00 100 BiPAP 50 07/10/17 20:00 87 20 135/73 (93) 100 BiPAP 50 07/10/17 19:45 36.6 95 20 131/75 (93) 100 BiPAP 50 07/10/17 19:33 36.7 92 20 131/86 (101) 100 Ambu-Bag 50 07/10/17 19:31 96 97 50 07/10/17 18:32 100 94 100 07/10/17 16:43 91 22 102/63 (76) 95 Nasal Cannula 2.0 07/10/17 16:00 98 CPAP 2.0 07/10/17 15:03 37.3 88 16 115/65 (82) 94 Nasal Cannula 2.0 07/10/17 14:05 73 100 07/10/17 12:00 98 CPAP 2.0 07/10/17 11:52 36.6 74 18 115/66 (82) 96 Laboratory Results: Last 24 Hours Test 07/10/17 14:12 07/10/17 14:18 07/10/17 16:19 07/10/17 18:14 Troponin I 0.214 ng/ml Bedside Glucose 117 mg/dl 136 mg/dl Kaolin Activated Coagulation Time 224 SECONDS Test 07/10/17 18:38 07/10/17 21:07 07/10/17 22:28 07/11/17 05:31 Kaolin Activated Coagulation Time 263 SECONDS Bedside Glucose 124 mg/dl White Blood Count 10.82 K/uL 10.77 K/uL Red Blood Count 4.23 M/uL 3.97 M/uL Hemoglobin 14.6 g/dL 13.5 g/dL Hematocrit 40.0 % 37.8 % Mean Corpuscular Volume 94.6 fL 95.2 fL Mean Corpuscular Hemoglobin 34.5 pg 34.0 pg Mean Corpuscular Hemoglobin Concent 36.5 g/dl 35.7 g/dl Platelet Count 112 K/uL 107 K/uL Mean Platelet Volume 10.1 fL 10.1 fL Neutrophils (%) (Auto) 81.1 % Lymphocytes (%) (Auto) 4.3 % Monocytes (%) (Auto) 14.1 % Eosinophils (%) (Auto) 0.0 % Basophils (%) (Auto) 0.1 % Neutrophils # (Auto) 8.78 K/uL Lymphocytes # (Auto) 0.46 K/uL Monocytes # (Auto) 1.53 K/uL Eosinophils # (Auto) 0.00 K/uL Basophils # (Auto) 0.01 K/uL RDW Standard Deviation 45.1 fL 45.3 fL RDW Coefficient of Variation 13.0 % 13.2 % Immature Granulocyte % (Auto) 0.4 % Immature Granulocyte # (Auto) 0.04 K/uL Sodium Level 135 mmol/L 133 mmol/L Potassium Level 4.0 mmol/L 4.3 mmol/L Chloride Level 103 mmol/L 103 mmol/L Carbon Dioxide Level 23 mmol/L 20 mmol/L Anion Gap 10.0 mmol/L 10.0 mmol/L Blood Urea Nitrogen 23 mg/dl 28 mg/dl Creatinine 1.21 mg/dl 1.29 mg/dl Est Creatinine Clear Calc Drug Dose 50.7 ml/min 47.5 ml/min Estimated GFR () 62.5 57.8 Estimated GFR (Non- 53.9 49.9 BUN/Creatinine Ratio 19.0 21.7 Random Glucose 119 mg/dl 145 mg/dl Calcium Level 8.2 mg/dl 8.3 mg/dl Total Creatine Kinase 383 U/L 498 U/L Creatine Kinase MB 29.0 ng/ml 34.2 ng/ml Creatine Kinase MB Ratio 7.6 6.9 Troponin I 5.930 ng/ml 15.300 ng/ml Pro-B-Type Natriuretic Peptide 3214 pg/ml Activated Partial Thromboplast Time 27.2 SECONDS Partial Thromboplastin Ratio 1.0 Phosphorus Level 3.7 mg/dl Magnesium Level 2.2 mg/dl Test 07/11/17 06:00 Bedside Glucose 187 mg/dl
--- NOTE | 2017-07-11 14:25 | Death Summary ---
Summary of Admission Date Jul 09, 2017 at 10:38 (Won Higgins MD) Date & Time of Jul 11, 2017. (Won Higgins MD) Cause of Cardiac Arrest (probably related to known CVD) (Won Higgins MD) Secondary Diagnoses Aortic Stenosis (Won Higgins MD) Hospital Course Resident Physician Supervision Note: I interviewed and examined the patient. Discussed with Dr. Higgins and agree with findings and plan as documented in the note. Any exceptions or clarifications are listed here: None Documented By: Danny Ellis code blue called - came promptly to room dr hansen and geovany ashby PAC both managing code. unfortunately pt did not survive. aspiration event appeasr to have happened at bedside, my concern would be that with his angina frequently including nausea, angina caused nausea caused aspiration. situation was terrible balance impossible to achieve given his 90% LAD stenosis was the reason for his sx - and was so severe that he was having angina multiple times a week prior to admission, then under watch showed the threshold to have angina sometimes even simply from sitting up in bed. was failing med management for this, so stenting vs repeat CABG were only viable options. repeat CABG almost certainly would have had catastrophic consequences for an 86 w his comorbidities , therefore stenting appeared by far the best option givne circumstances. unfortunately his overall severe disease burden was the overall contributor to his demise. (Danny Ellis D.O.)
[2017-07-11] MEDS ORDERED: PRAVASTATIN SOD 40 MG TAB PO SCH (17:00)
== END 2017-07-11 11:33 | disposition expired | DRG 246 ==
LOC: EDBD 23:34 → C.EDB 23:35 → C.2E 07-09 01:15 → EDBEDREQ 07-09 01:17 → ENRESERV 07-09 01:21 → OBSVTOIN 07-09 10:38 → C.MSICU 07-10 17:44
PROVIDERS: ADMIT Family Medicine; ATTEND Family Medicine
PROC: B211YZZ Fluoroscopy of Multiple Coronary Arteries using Other Contrast (ICD-10-PCS; 2017-07-09)
PROC: 4A023N7 Measurement of Cardiac Sampling and Pressure, Left Heart, Percutaneous Approach (ICD-10-PCS; 2017-07-09)
PROC: 027035Z Dilation of Coronary Artery, One Artery with Two Drug-eluting Intraluminal Devices, Percutaneous Approach (ICD-10-PCS; principal; 2017-07-10 17:20)
PROC: 5A2204Z Restoration of Cardiac Rhythm, Single (ICD-10-PCS; 2017-07-11)
PROC: 0BH18EZ Insertion of Endotracheal Airway into Trachea, Via Natural or Artificial Opening Endoscopic (ICD-10-PCS; 2017-07-11)
PROC: 5A02115 Assistance with Cardiac Output using Pulsatile Compression, Intermittent (ICD-10-PCS; 2017-07-11)
PROC: 0D9670Z Drainage of Stomach with Drainage Device, Via Natural or Artificial Opening (ICD-10-PCS; 2017-07-11)
PROC: 03HC33Z Insertion of Infusion Device into Left Radial Artery, Percutaneous Approach (ICD-10-PCS; 2017-07-11)
DX: I21.4 Non-ST elevation (NSTEMI) myocardial infarction (principal); I50.33 Acute on chronic diastolic (congestive) heart failure; I47.2 Ventricular tachycardia; I35.0 Nonrheumatic aortic (valve) stenosis; I46.2 Cardiac arrest due to underlying cardiac condition; I49.01 Ventricular fibrillation; I95.9 Hypotension, unspecified; T17.910A Gastric contents in respiratory tract, part unspecified causing asphyxiation, initial encounter; I73.9 Peripheral vascular disease, unspecified; I25.10 Atherosclerotic heart disease of native coronary artery without angina pectoris; E11.42 Type 2 diabetes mellitus with diabetic polyneuropathy; G47.33 Obstructive sleep apnea (adult) (pediatric); E78.5 Hyperlipidemia, unspecified; Z79.899 Other long term (current) drug therapy; Z79.4 Long term (current) use of insulin; Z91.81 History of falling; Z95.1 Presence of aortocoronary bypass graft; Z88.1 Allergy status to other antibiotic agents; Z88.8 Allergy status to other drugs, medicaments and biological substances; Z88.3 Allergy status to other anti-infective agents; X58.XXXA Exposure to other specified factors, initial encounter